=== PATIENT | female | born 1930 | race Caucasian/White ===

== ENCOUNTER 2017-04-11 16:07 | Emergency (ER) | payer OTHER, MEDICARE ==
[~2017-04-11] VITALS: Ht 170.2 cm; Wt 52.2 kg
[~2017-04-11 16:07] MED LIST: ACETAMINOPHEN COD PO; APAP325 MG RC; ASPIR 8181 MG PO; ATENOLOL50 MG PO; ATORVASTATIN CA10 MG PO; CALCITONIN200 IU/Act NAS; COSOPT OCUMETER10 ML OPH; COUMADIN 3 MG TA3 MG PO; DULCOLAX10 MG PR; ENSURE CLEAR PO; FLAGYL 25O MG250 M1 PO; FLORASTOR250 MG PO; LIDODERM 5% PAT1 PAT TD; LIDODERM 5% PAT1 PAT TOP; LISINOPRIL10 MG PO; LYRICA25 MG PO; METRONIDAZOLE500 MG PO; MILK OF MAGNESI30 ML PO; PRINIVIL10 MG PO; SERTRALINE HYDR50 MG PO; SYNTHROID0.125 MG PO; TRAMADOL50 MG PO; TYLENOL TAB 32325 MG PO; ULTRAM(MONOGRAP50 MG PO; VOLTAREN GEL1% TOP; [UNRECOGNIZED DRUG - OTHER] OPH
[2017-04-11 17:03] LABS: ABSOLUTE BASOPHIL COUNT 0 /CUMM (0.0-0.2); ABSOLUTE EOSINOPHIL COUNT 0 /CUMM (0.0-0.7); ABSOLUTE GRANULOCYTE CT 2.1 /CUMM (1.4-6.5); ABSOLUTE LYMPH COUNT 0.8 /CUMM (1.2-3.4); ABSOLUTE MONOCYTE COUNT 0.1 /CUMM (0.10-0.60); BASOPHIL % 0.7 % (0.0-2.0); EOSINOPHIL % 0.8 % (0-5); GRANULOCYTE % 69.4 % (42.2-75.2); HEMATOCRIT 34.2 % (37-47); MEAN CORPUSCULAR HGB 34.4 PG (27.0-31.0); MEAN CORPUSCULAR HGB CONC 33.4 G/DL (33.0-37.0); MEAN CORPUSCULAR VOLUME 103.1 FL (81.0-99.0); MEAN PLATELET VOLUME 11.4 FL (7.4-10.4); PLATELET COUNT 89 /CUMM (130-400); RBC DISTRIBUTION WIDTH 14.3 % (11.5-14.5); RED BLOOD CELL CT 3.31 /CUMM (4.20-5.40); WHITE BLOOD CELL COUNT 3.1 /CUMM (4.8-10.8)
[2017-04-11 17:05] LABS: PT 11.5 SEC (9.4-12.5)
--- NOTE | 2017-04-11 17:44 | ED NOSE COMPLAINT ---
History of Present Illness General Chief Complaint: Epistaxis/Nasal Foreign Body Stated Complaint: EPISTAXIS Source: patient, family Exam Limitations: no limitations Vital Signs & Intake/Output Vital Signs & Intake/Output Vital Signs Date Time Temp Pulse Resp B/P B/P Pulse O2 O2 Flow FiO2 Mean Ox Delivery Rate 04/11 1838 99 Room Air 04/11 1639 99.9 85 15 230/96 92 Room Air Room Air Allergies Coded Allergies: No Known Allergies (04/11/17) Reconcile Medications Amiodarone HCl 100 MG TABLET 1 TAB PO DAILY HEART (Reported) Aspirin (Ecotrin*) 81 MG TABLET.DR 1 TAB PO DAILY HEART/BLOOD (Reported) Atorvastatin Calcium 10 MG TABLET 1 TAB PO DAILY CHOLESTEROL (Reported) Dorzolamide HCl/Timolol Maleat (Dorzolamide-Timolol Eye Drops) 22.3 MG-6.8 MG/ML DROPS 1 GTT OPH BID BOTH EYES (Reported) Levothyroxine Sodium 75 MCG TABLET 1 TAB PO DAILY THYROID (Reported) Lisinopril 30 MG TABLET 1 TAB PO DAILY BP (Reported) Sertraline HCl 50 MG TABLET 1 TAB PO DAILY MENTAL HEALTH (Reported) Triage Note: PT TO ED FOR EPISTAXIS SINCE 0900 TODAY AND HAS NOT STOPPED SINCE THEN. SOME SMALL CLOTS. PT NOT ON BLOOD THINNERS. TISSUE IN TRIAGE NOTED WITH SOME BLOD, BUT NOT SOAKED. Triage Nurses Notes Reviewed? yes HPI: At approximately 9 AM this morning patient developed epistaxis from her left nostril. Patient states that bleeding has been intermittent throughout the day. There've not been no clots. There is no headache. There is no lightheadedness. There is no blurry vision. There is no nausea or vomiting. There is no shortness of breath. There is no coughing. 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 Patient states that she gets very anxious at doctor's office's as well as in the hospital. Her freight engineer and told her to monitor her blood pressure at home and to be treated as needed. Patient states that she has been taking her blood pressure daily since she has been home and it is been 155 over 70s. Past History Travel History Traveled to [place] past 21 day No Medical History Any Pertinent Medical History? see below for history Cardiovascular: hypertension, HYPERCHOLESTEROLEMIA ARRHYTHMIA Psychiatric: anxiety Endocrine: HYPOTHYROIDISM History of MRSA: No History of VRE: No History of CDIFF: No Surgical History Surgical History: non-contributory Psychosocial History Who do you live with Patient/Self Services at Home None What is your primary language Italian Tobacco Use: Never used ETOH Use: denies use Illicit Drug Use: denies illicit drug use Family History Family History, If Any: MOTHER FH: diabetes in FH: hypertension FATHER Parkinsonism Hx Contributory? No Review of Systems Review of Systems Constitutional: Reports: no symptoms. EENTM: Reports: see HPI, epistaxis. Respiratory: Reports: no symptoms. Cardiovascular: Reports: no symptoms. GI: Reports: no symptoms. Neurological/Psychological: Reports: no symptoms. Immunologic/Allergic: Reports: no symptoms. Physical Exam Physical Exam General Appearance: well developed/nourished, alert, awake, anxious, mild distress Head: atraumatic, normal appearance Eyes: Bilateral: PERRL, EOMI. Nose: dried blood Mouth/Throat: normal mouth inspection, pharynx normal Neck: normal inspection, supple Cardiovascular/Respiratory: normal breath sounds, normal peripheral pulses, regular rate/rhythm, no respiratory distress Neurologic/Psych: no motor/sensory deficits, awake, alert, oriented x 3, normal gait, normal mood/affect Progress Differential Diagnoses I considered the following diagnoses in my evaluation of the patient: [Epistaxis ] Plan of Care: Orders Procedure Date/time Status PROTHROMBIN TIME 04/11 1639 Complete COMPREHENSIVE METABOLIC PANEL 04/11 1639 Complete CBC WITHOUT DIFFERENTIAL 04/11 1639 Active EKG 04/11 1639 Active Laboratory Tests 04/11/17 1650: Anion Gap 12, Estimated GFR 28 L, BUN/Creatinine Ratio 18.8, Glucose 103 H, Calcium 9.4, Total Bilirubin 0.8, AST 34, ALT 46, Alkaline Phosphatase 90, Total Protein 8.7 H, Albumin 4.8, Globulin 3.9, Albumin/Globulin Ratio 1.2, PT 11.5, INR 1.10, CBC w Diff MAN DIFF ORDERED, RBC 3.31 L, MCV 103.1 H, MCH 34.4 H, RDW 14.3, MPV 11.4 H, Gran % 69.4, Lymphocytes % 26.1, Monocytes % 3.0, Eosinophils % 0.8, Basophils % 0.7, Absolute Granulocytes 2.1, Segmented Neutrophils Pending, Absolute Lymphocytes 0.8 L, Absolute Monocytes 0.1 L, Absolute Eosinophils 0, Absolute Basophils 0, PUBS MCHC 33.4 Initial ED EKG: NSR, LVH, nonspecific ST T wave chg Prior EKG: unchanged Comments: Patient's daughter, who is a nurse, is at the bedside and agrees that her blood pressure has been normal when she is not at the doctor's office or in the hospital. Bleeding had stopped however when the patient got up to ambulate it started to bleed again. Nasal Rhino Rocket removed. Bleeding is coming from the anterior septum. Thrombin inserted. Departure Departure Disposition: HOME OR SELF CARE Condition: Stable Clinical Impression Primary Impression: Epistaxis Referrals: VAUGHN CHA,DAGOBERTO León (PCP/Family) AUGUSTINE CHA,KHADIJAH Additional Instructions: RETURN FOR ANY CONCERNS Departure Forms: Customer Survey General Discharge Information Procedures Epistaxis/Nasal Foreign Body Status: no bleeding Clots Cleared Nasal Passage: by patient blowing Inspected With: otoscope Bleeding Site: ANTERIOR SEPTUM Nasal Rocket: Left: Inserted Anterior.
[2017-04-11] MEDS ORDERED: SERTRALINE HCL50 MG PO (17:51)
[2017-04-11] MEDS ORDERED: ASPIRIN EC81 M1 PO (17:52)
[2017-04-11] MEDS ORDERED: AMIODARONE HCL100 M1 PO (17:52)
[2017-04-11] MEDS ORDERED: ATORVASTATIN CA10 M1 PO (17:52)
[2017-04-11] MEDS ORDERED: LISINOPRIL30 M1 PO (17:52)
[2017-04-11] MEDS ORDERED: LEVOTHYROXINE75 MCG PO (17:52)
[2017-04-11] MEDS ORDERED: DORZOLAMIDE-TIM10 ML OPH (17:53)
[2017-04-11 19:47] VITALS: BP 220/100
[2017-04-12] MEDS ORDERED: AUGMENTIN 500-1 EACH PO (09:43)
== END 2017-04-11 19:48 ==
LOC: ERH 16:07
PROVIDERS: Emergency Medicine
DX: R04.0 Epistaxis (principal); I10 Essential (primary) hypertension
CPT/HCPCS: 93005; 93010

== ENCOUNTER 2017-04-12 08:01 | Emergency (ER) | payer OTHER, MEDICARE ==
[~2017-04-12] VITALS: Ht 167.6 cm; Wt 52.2 kg
[~2017-04-12 08:01] MED LIST changes: +AMIODARONE HCL100 M1 PO; +ASPIRIN EC81 M1 PO; +ATORVASTATIN CA10 M1 PO; +DORZOLAMIDE-TIM10 ML OPH; +LEVOTHYROXINE75 MCG PO; +LISINOPRIL30 M1 PO; +SERTRALINE HCL50 MG PO
--- NOTE | 2017-04-12 08:18 | ED NOSE COMPLAINT ---
History of Present Illness General Chief Complaint: Epistaxis/Nasal Foreign Body Stated Complaint: NOSEBLEED, SEEN YESTERDAY FOR SAME Source: patient, family, old records Exam Limitations: no limitations Vital Signs & Intake/Output Vital Signs & Intake/Output Vital Signs Date Time Temp Pulse Resp B/P B/P Pulse O2 O2 Flow FiO2 Mean Ox Delivery Rate 04/12 1005 76 156/84 04/12 0811 164/92 04/12 0807 96 Room Air 04/12 0804 96.6 70 18 95 Room Air ED Intake and Output 04/13 0000 04/12 1200 Intake Total 0 Output Total Balance 0 Intake, Oral 0 Patient 115 lb Weight Weight Reported by Patient Measurement Method Allergies Coded Allergies: No Known Allergies (04/11/17) Reconcile Medications Amiodarone HCl 100 MG TABLET 1 TAB PO DAILY HEART (Reported) Aspirin (Ecotrin*) 81 MG TABLET.DR 1 TAB PO DAILY HEART/BLOOD (Reported) Atorvastatin Calcium 10 MG TABLET 1 TAB PO DAILY CHOLESTEROL (Reported) Augmentin (Augmentin 500-125 Tablet) 500 MG-125 MG TABLET 1 TAB PO BID NASAL PACKING Dorzolamide HCl/Timolol Maleat (Dorzolamide-Timolol Eye Drops) 22.3 MG-6.8 MG/ML DROPS 1 GTT OPH BID BOTH EYES (Reported) Levothyroxine Sodium 75 MCG TABLET 1 TAB PO DAILY THYROID (Reported) Lisinopril 30 MG TABLET 1 TAB PO DAILY BP (Reported) Sertraline HCl 50 MG TABLET 1 TAB PO DAILY MENTAL HEALTH (Reported) Triage Note: 86 YO FEMALE ROSIBELA FROM HOME. PT WAS SEEN AND D/C YESTERDAY FOR NOSEBLEED (L NOSTRIL). PT STATES THE NOSE STARTED TO BLEED AGAIN DURING THE NIGHT. PT TAKES BABY ASPIRIN DAILY. PER EMS PTS DAUGHTER STATED THAT SHE HAD BLOOD IN HER STOOL, PT DENIES THE BLOOD. PT DENIES DIZZINESS/LIGHTHEADED Triage Nurses Notes Reviewed? yes Onset: Abrupt Duration: SINCE YESTERDAY Timing: recent history Injury Environment: home Severity: mild, moderate No Modifying Factors: none Associated Symptoms: WEAKNESS, ANXIOUS HPI: This is an 86-year-old female with history of nosebleed seen yesterday in the emergency department who presents with the family again for bleeding on and off all night. Blood is going from the left nostril. She states she may have picked the nose. Patient was hypertensive yesterday in ER and has no history of thrombocytopenia. They did not call ENT doctor this morning. When they wanted to bring her to the hospital they noted she was weak on her feet. She also admits to one episode of diarrhea with some blood in overnight. History of C. difficile in the past. Past History Travel History Traveled to [place] past 21 day No Medical History Any Pertinent Medical History? see below for history Neurological: NONE EENT: NONE Cardiovascular: hypertension, HYPERCHOLESTEROLEMIA ARRHYTHMIA Respiratory: NONE Gastrointestinal: NONE Hepatic: NONE Renal: NONE Musculoskeletal: NONE Psychiatric: anxiety Endocrine: HYPOTHYROIDISM History of MRSA: No History of VRE: No History of CDIFF: No Surgical History Surgical History: non-contributory Psychosocial History Who do you live with Patient/Self Services at Home None What is your primary language Chinese Tobacco Use: Never used ETOH Use: denies use Illicit Drug Use: denies illicit drug use Family History Family History, If Any: MOTHER FH: diabetes in FH: hypertension FATHER Parkinsonism Hx Contributory? No Review of Systems Review of Systems Constitutional: Reports: weakness. Denies: chills, fever. EENTM: Reports: no symptoms. Respiratory: Denies: short of breath. Cardiovascular: Denies: chest pain. GI: Denies: abdominal pain. Genitourinary: Reports: no symptoms. Musculoskeletal: Reports: no symptoms. Skin: Reports: no symptoms. Neurological/Psychological: Reports: anxiety. Hematologic/Endocrine: Reports: bleeding. Immunologic/Allergic: Denies: splenectomy. All Other Systems: Reviewed and Negative Physical Exam Physical Exam General Appearance: alert, awake, anxious, mild distress, thin Head: atraumatic Eyes: Bilateral: PERRL, EOMI. Nose: MINIMAL BLEEDING FROM LEFT NARE Mouth/Throat: normal mouth inspection, pharynx normal Neck: normal inspection, supple Cardiovascular/Respiratory: normal breath sounds, regular rate/rhythm Back: normal inspection Neurologic/Psych: no motor/sensory deficits, awake, alert, oriented x 3, ANXIOUS Skin: intact, normal color, warm/dry Progress Differential Diagnoses I considered the following diagnoses in my evaluation of the patient: [ANTERIOR EPISTAXIS, ANEMIA, DEHYDRATION, HYPERTENSION, THROMBOCYTOPENIA] Plan of Care: Orders Procedure Date/time Status Add-on Test (ER Only) 04/12 0914 Active PARTIAL THROMBOPLASTIN TIME 04/12 08 Complete PROTHROMBIN TIME 04/12 0843 Complete COMPREHENSIVE METABOLIC PANEL 04/12 0843 Complete CBC WITHOUT DIFFERENTIAL 04/12 08 Complete Laboratory Tests 04/12/17 0843: Anion Gap 13, Estimated GFR 30 L, BUN/Creatinine Ratio 27.5 H, Glucose 111 H, Calcium 9.1, Total Bilirubin 0.7, AST 28, ALT 31, Alkaline Phosphatase 78, Total Protein 7.9, Albumin 4.3, Globulin 3.6, Albumin/Globulin Ratio 1.2, PT 11.4, INR 1.09, APTT 34, CBC w Diff NO MAN DIFF REQ, RBC 3.05 L, MCV 101.8 H, MCH 34.4 H, RDW 14.5, MPV 10.6 H, Gran % 84.0 H, Lymphocytes % 13.7 L, Monocytes % 1.8 , Eosinophils % 0.1, Basophils % 0.4, Absolute Granulocytes 2.4, Absolute Lymphocytes 0.4 L, Absolute Monocytes 0 L, Absolute Eosinophils 0, Absolute Basophils 0, PUBS MCHC 33.8 Microbiology 04/12 0914 STOOL: Clostridium difficile Toxin A & B - CAN Cancelled: SPECIMEN NEVER RECEIVED. PATIENT DEPARTED [facility] 04/12/2017 8:58:01 AM Afrin, thrombin and left anterior anterior nasal packing placed NO BLEEDING AFTER NASAL TAMPON PLACED. MINIMAL CHANGE IN H/H, NO INDICATINO FOR TRANSFUSION. FAMILY WANTS C.DIFF CHECKED BUT PATIENT UNABLE TO PROVIDE SAMPLE. THEY WILL FOLLOW UP WITH ENT FOR FURTHER EVALUATION. (LEONIDAS CHA,REMA) Initial ED EKG: none Departure Departure Time of Disposition: 0940 Disposition: HOME OR SELF CARE Condition: Stable Clinical Impression Primary Impression: Epistaxis Secondary Impressions: Dehydration, Thrombocytopenia Referrals: VAUGHN CHA,DAGOBERTO León (PCP/Family) AUGUSTINE CHA,KHADIJAH Additional Instructions: Please follow up with the ENT regarding the episodes of nose bleeding. Increase YOUR fluid intake. Return as needed. Take the antibiotic as prescribed. Departure Forms: Customer Survey General Discharge Information Prescriptions: Current Visit Scripts Augmentin (Augmentin 500-125 Tablet) 1 TAB PO BID #10 TAB
[2017-04-12 08:53] LABS: ABSOLUTE BASOPHIL COUNT 0 /CUMM (0.0-0.2); ABSOLUTE EOSINOPHIL COUNT 0 /CUMM (0.0-0.7); ABSOLUTE GRANULOCYTE CT 2.4 /CUMM (1.4-6.5); ABSOLUTE LYMPH COUNT 0.4 /CUMM (1.2-3.4); ABSOLUTE MONOCYTE COUNT 0 /CUMM (0.10-0.60); BASOPHIL % 0.4 % (0.0-2.0); EOSINOPHIL % 0.1 % (0-5); HEMATOCRIT 31.1 % (37-47); MEAN CORPUSCULAR HGB 34.4 PG (27.0-31.0); MEAN CORPUSCULAR HGB CONC 33.8 G/DL (33.0-37.0); MEAN CORPUSCULAR VOLUME 101.8 FL (81.0-99.0); MEAN PLATELET VOLUME 10.6 FL (7.4-10.4); PLATELET COUNT 82 /CUMM (130-400); RBC DISTRIBUTION WIDTH 14.5 % (11.5-14.5); RED BLOOD CELL CT 3.05 /CUMM (4.20-5.40); WHITE BLOOD CELL COUNT 2.8 /CUMM (4.8-10.8)
[2017-04-12] MEDS ORDERED: AUGMENTIN 500-1 EACH PO (09:43)
[2017-04-12 09:45] LABS: PT 11.4 SEC (9.4-12.5); PTT 34 SEC (25-37)
[2017-04-12 10:05] VITALS: BP 156/84
== END 2017-04-12 10:05 ==
LOC: ERH 08:01
PROVIDERS: Emergency Medicine
DX: R04.0 Epistaxis (principal); E86.0 Dehydration; D69.6 Thrombocytopenia, unspecified

== ENCOUNTER 2017-04-13 17:06 | Inpatient (IN) | payer OTHER, MEDICARE ==
[~2017-04-13] VITALS: Ht 170.2 cm; Wt 52.2 kg
[~2017-04-13 17:06] MED LIST changes: +AUGMENTIN 500-1 EACH PO
--- NOTE | 2017-04-13 17:12 | NUR ---
86 YO FEMALE TO TRIAGE WITH FAMILY. FAMILY STATES THAT PT HAS BEEN WEAK AND UNABLE TO GE TOUT OF BED TODAY. PT WAS SEEN HERE YESTERDAY FOR NOSEBLEED AND HAD PACKING PLACED. PT HAD APPT TODAY WITH ENT AT 3:45 BUT PER FAMILY SHE WAS UNABLE TO GO. PT NOTED WITH DRY BLOOD AROUND NASAL PACKING. BP 133/84 IN TRIAGE, PER FAMILY THAT IS "EXTREMILY LOW" FOR THE PT AND "MAYBE THATS WHY SHE FEELS SO TIRED" PT DENIES PAIN.
--- NOTE | 2017-04-13 17:13 | NUR ---
PER FAMILY PT DID TAKE 1 DOSE OF ANTIBOTIC TODAY
--- NOTE | 2017-04-13 18:11 | NUR ---
PATIENT ARRIVES TO TX ROOM AND IS PALE, WEAK, CLAMMY. SEEN AT THIS FACILITY YESTERDAY W/ BLOODY NOSE. AT PRESENT THERE IS NO NOSE BLEED NOTED.
--- NOTE | 2017-04-13 18:17 | ED AMS/SEIZURE/WEAK/DIZZY ---
History of Present Illness General Chief Complaint: Epistaxis/Nasal Foreign Body Stated Complaint: EPISTAXIS,+N,+D Source: patient, family, old records Exam Limitations: no limitations Vital Signs & Intake/Output Vital Signs & Intake/Output Vital Signs Date Time Temp Pulse Resp B/P B/P Pulse O2 O2 Flow FiO2 Mean Ox Delivery Rate 04/13 1946 97.6 62 16 220/80 95 Room Air 04/13 1839 97.2 68 18 188/77 96 Room Air 04/13 1708 98.7 72 18 133/82 97 Room Air Allergies Coded Allergies: No Known Allergies (04/11/17) Reconcile Medications Amiodarone HCl 100 MG TABLET 1 TAB PO DAILY HEART (Reported) Aspirin (Ecotrin*) 81 MG TABLET.DR 1 TAB PO DAILY HEART/BLOOD (Reported) Atorvastatin Calcium 10 MG TABLET 1 TAB PO DAILY CHOLESTEROL (Reported) Augmentin (Augmentin 500-125 Tablet) 500 MG-125 MG TABLET 1 TAB PO BID NASAL PACKING Dorzolamide HCl/Timolol Maleat (Dorzolamide-Timolol Eye Drops) 22.3 MG-6.8 MG/ML DROPS 1 GTT OPH BID BOTH EYES (Reported) Levothyroxine Sodium 75 MCG TABLET 1 TAB PO DAILY THYROID (Reported) Lisinopril 30 MG TABLET 1 TAB PO DAILY BP (Reported) Sertraline HCl 50 MG TABLET 1 TAB PO DAILY MENTAL HEALTH (Reported) Triage Note: 86 YO FEMALE TO TRIAGE WITH FAMILY. FAMILY STATES THAT PT HAS BEEN WEAK AND UNABLE TO GE TOUT OF BED TODAY. PT WAS SEEN HERE YESTERDAY FOR NOSEBLEED AND HAD PACKING PLACED. PT HAD APPT TODAY WITH ENT AT 3:45 BUT PER FAMILY SHE WAS UNABLE TO GO. PT NOTED WITH DRY BLOOD AROUND NASAL PACKING. BP 133/84 IN TRIAGE, PER FAMILY THAT IS "EXTREMILY LOW" FOR THE PT AND "MAYBE THATS WHY SHE FEELS SO TIRED" PT DENIES PAIN. Triage Nurses Notes Reviewed? yes Onset: Abrupt Duration: day(s): (3) Timing: recent history Injury Environment: home Severity: mild, moderate No Modifying Factors: none Associated Symptoms: weakness, epistaxis HPI: 86 year old female here for 3rd visit in 3 days. Family reports weakness, unable to get to see the ENT today. She had a nasal tampon placed by myself in the ER yesterday. She took one dose of Augmentin yesterday and had a few episodes of diarrhea. She was due to see ENT today the family states that she was very diaphoretic when attempting to get off the commode. Patient appears weak and pale. No active bleeding on exam today. There is some dried blood at the base of the tampon. She did not take any Augmentin today. History of C. difficile in the past before. We attempted to collect stool sample yesterday while in the ER she was having diarrhea prior to starting the antibiotic. Family states that she is too weak to be at home they're afraid that she is going to fall. (REMA LAUREN MD) Past History Travel History Traveled to [place] past 21 day No Medical History Any Pertinent Medical History? see below for history Neurological: NONE EENT: NONE Cardiovascular: hypertension, HYPERCHOLESTEROLEMIA ARRHYTHMIA Respiratory: NONE Gastrointestinal: NONE Hepatic: NONE Renal: NONE Musculoskeletal: NONE Psychiatric: anxiety Endocrine: HYPOTHYROIDISM History of MRSA: No History of VRE: No History of CDIFF: No Surgical History Surgical History: non-contributory Psychosocial History Who do you live with Patient/Self Services at Home None What is your primary language Nicaraguan Tobacco Use: Never used Family History Family History, If Any: MOTHER FH: diabetes in FH: hypertension FATHER Parkinsonism Hx Contributory? No (REMA LAUREN MD) Review of Systems Review of Systems Constitutional: Reports: malaise, weakness. Denies: chills, fever. EENTM: Reports: no symptoms. Respiratory: Denies: cough, short of breath. Cardiovascular: Denies: chest pain. GI: Reports: no symptoms. Genitourinary: Reports: no symptoms. Musculoskeletal: Reports: no symptoms. Skin: Reports: no symptoms. Neurological/Psychological: Reports: no symptoms. Hematologic/Endocrine: Reports: bleeding. Immunologic/Allergic: Reports: no symptoms. All Other Systems: Reviewed and Negative (REMA LAUREN MD) Physical Exam Physical Exam General Appearance: alert, awake, mild distress, moderate distress, thin Head: atraumatic, normal appearance Eyes: Bilateral: PERRL, EOMI. Ears, Nose, Throat: normal pharynx, normal ENT inspection, hearing grossly normal Neck: normal inspection, supple, full range of motion Respiratory: normal breath sounds, chest non-tender, no respiratory distress Cardiovascular: regular rate/rhythm Peripheral Pulses: 2+ radial (R), 2+ radial (L) Gastrointestinal: soft, non-tender Extremities: normal range of motion Neurologic/Psych: awake, alert, oriented x 3 Skin: intact, normal color, warm/dry, pallor Core Measures ACS in differential dx? No CVA/TIA Diagnosis: No Severe Sepsis Present: No Septic Shock Present: No (REMA LAUREN MD) Progress Differential Diagnosis: anemia, dehydration, DIARRHEA, C.DIFF Plan of Care: Orders Procedure Date/time Status TROPONIN LEVEL 04/13 1815 Complete PARTIAL THROMBOPLASTIN TIME 04/13 1815 Complete PROTHROMBIN TIME 04/13 1815 Complete COMPREHENSIVE METABOLIC PANEL 04/13 1815 Complete CBC WITHOUT DIFFERENTIAL 04/13 1815 Complete EKG 04/13 1815 Active Current Medications Sig/Maureen Start time Last Medication Dose Stop Time Status Admin Sodium Chloride 1,000 ML ONCE ONE 04/13 1830 AC 04/13 (Normal Saline 0.9%) 04/14 0749 1832 Laboratory Tests 04/13/17 1825: Anion Gap 11, Estimated GFR 28 L, BUN/Creatinine Ratio 26.5 H, Glucose 118 H, Calcium 9.1, Total Bilirubin 0.5, AST 28, ALT 36, Alkaline Phosphatase 59, Troponin I 0.05, Total Protein 7.6, Albumin 4.3, Globulin 3.3, Albumin/Globulin Ratio 1.3, PT 11.6, INR 1.11, APTT 28, CBC w Diff NO MAN DIFF REQ, RBC 2.74 L, MCV 102.8 H, MCH 34.6 H, RDW 14.3, MPV 11.5 H, Gran % 86.0 H, Lymphocytes % 11.3 L, Monocytes % 2.4, Eosinophils % 0, Basophils % 0.3, Absolute Granulocytes 4.3, Absolute Lymphocytes 0.6 L, Absolute Monocytes 0.1 L, Absolute Eosinophils 0, Absolute Basophils 0, PUBS MCHC 33.6 Initial ED EKG: NSR, abnormal Q waves (INFERIOR), FIRST DEGREE AV BLOCK, LAD Prior EKG: unchanged Hand-Off Endorsed To: ADIN OCHOA MD Endorsed Time: 1927 Pending: other (AMBULATION TRIAL/ADMISSION) (REMA LAUREN MD) Departure Departure Disposition: STILL A PATIENT Condition: Stable Referrals: VAUGHN CHA,DAGOBERTO León (PCP/Family) Departure Forms: Customer Survey General Discharge Information (REECE LAUREN MDRANI) Departure Clinical Impression Primary Impression: Hypertensive urgency Secondary Impressions: CAMELIA (acute kidney injury), Anemia, Epistaxis, Gait instability, Risk for falls, Weakness Admission Note Documentation of Exam: Documentation of any treatments & extenuating circumstances including Concerns Regarding Discharge (functional status, medication knowledge or non-compliance, living conditions, etc.) that warrant an admission rather than observation: Patient is an 86-year-old with multiple active medical issues including hypertensive urgency (placing her at risk of a CVA, encephalopathy, chest pain/ acute coronary syndrome, intracranial hemorrhage and epistaxis with worsening blood loss), epistaxis episodes worsened by fluctuating and often severe high blood pressure, dropping hematocrit, indication of acute kidney injury ( worsening creatinine) and gait instability (placing the patient at high risk of falling with subsequent injury and an inability to perform activities of daily living). In addition the patient be a poor candidate for outpatient management as a be quite difficult and risky for her to comply with outpatient treatment. I feel she requires hospitalization and treatment of her hypertension, monitoring of the anemia and renal functions and consideration of your nose and throat and cardiology consultations. Patient's medications will need to be adjusted to treat the elevated blood pressure. Given the patient's advanced age and multiple medical comorbidities and active issues, I feel the patient will require a multiple day hospitalization and that her treatment and recovery will be a prolonged and complicated. (GABRIELA CHA,ADIN Maguire)
--- NOTE | 2017-04-13 18:33 | NUR ---
86 YEAR OLD FEMALE , ALERT AND ORIENTED, SEEN IN ER WEDNESDAY AROUND 0900 FOR NOSE BLEED, PT HAD NASAL PACKING PLACED , BUT STATES THAT THEY HAD TO REMOVE IT DUE TO IT KEPT BLEEDING AND THEY USED THROMBIN. PT RETURNED YESTERDAY AM DUE TO L SIDE NOSTRIL STARTED TO BLEED AGAIN, USED THROMBIN AND PLACED PACKING. PT RETURNS TODAY DUE TO FEELING WEAK AND EPISODES OF SOB , O2 SAT 96 % ON RA. NSR ON MONITOR , PT COLOR PALE, FAMILY STATES THAT PT IS ALWAYS FAIR SKIN BUT THEY ALSO NOTED SHE IS MORE PALE TODAY. PT COMPLAINS OF DIZZINESS WHEN SHE GETS UP. NO APPETITE. NO BLEEDING NOTED TO L NARES AT THIS TIME AND PACKING REMAINS IN PLACE. DENIES CP/ABD PAIN/URINARY SYMPTOMS.
[2017-04-13 18:36] LABS: ABSOLUTE BASOPHIL COUNT 0 /CUMM (0.0-0.2); ABSOLUTE EOSINOPHIL COUNT 0 /CUMM (0.0-0.7); ABSOLUTE GRANULOCYTE CT 4.3 /CUMM (1.4-6.5); ABSOLUTE LYMPH COUNT 0.6 /CUMM (1.2-3.4); ABSOLUTE MONOCYTE COUNT 0.1 /CUMM (0.10-0.60); BASOPHIL % 0.3 % (0.0-2.0); EOSINOPHIL % 0 % (0-5); HEMATOCRIT 28.2 % (37-47); MEAN CORPUSCULAR HGB 34.6 PG (27.0-31.0); MEAN CORPUSCULAR HGB CONC 33.6 G/DL (33.0-37.0); MEAN CORPUSCULAR VOLUME 102.8 FL (81.0-99.0); MEAN PLATELET VOLUME 11.5 FL (7.4-10.4); RBC DISTRIBUTION WIDTH 14.3 % (11.5-14.5); RED BLOOD CELL CT 2.74 /CUMM (4.20-5.40)
[2017-04-13 18:45] LABS: PT 11.6 SEC (9.4-12.5); PTT 28 SEC (25-37)
[2017-04-13 18:58] LABS: PLATELET COUNT 92 /CUMM (130-400)
--- NOTE | 2017-04-13 19:39 | NUR ---
PT TRIED TO AMBULATE WITH THIS NURSE, PT NOTED TO BE SHAKEY AND STARTED TO FALL BACKWARDS AFTER A COUPLE OF STEPS. PT COMPLAINED OF FEELING WEAK. ASSISTED BACK INTO BED AT THIS TIME. NSR ON MONITOR AND FLUIDS CONTINUE TO INFUSE AT 75 ML/HR
--- NOTE | 2017-04-13 19:51 | NUR ---
MANUAL BP 220/80, DR OCHOA MADE AWARE , PER FAMILY PT ONLY TAKES LISINOPRIL IN THE AM AND DOES NOT TAKE HTN MEDS IN PM. DR OCHOA AWARE
--- NOTE | 2017-04-13 20:30 | NUR ---
PT MEDICATED WITH NORVASC 10 MG PO PER ORDER FOR BP 220/80. PT ASSISTED UP TO COMMODE BY MST.
--- NOTE | 2017-04-13 20:37 | NUR ---
PT VOIDED 200 CC YELLOW URINE ON COMMODE
--- NOTE | 2017-04-13 20:48 | NUR ---
URINE TRIO SENT TO LAB.
--- NOTE | 2017-04-13 20:48 | NUR ---
PT OFFERED FOOD TRAY AND REFUSED , PT PROVIDED WITH WATER PER HER REQUEST
--- NOTE | 2017-04-13 21:09 | NUR ---
FAMILY REQUESTING THAT MD COME IN AND GO OVER PATIENTS LABS WITH THEM . MD AWARE
--- NOTE | 2017-04-13 22:13 | NUR ---
MANUAL BP 211/92 , MD AWARE , FAMILY REMAINS AT BEDSIDE
--- NOTE | 2017-04-13 22:39 | NUR ---
BP 202/79 AT 2234, PT MEDICATED WITH 5MG IV LABETALOL REPEAT BP AT 2236 192/76, PT MEDICATED WITH ADDITIONAL 5MG AT 2237 AND REPEAT BP AT 2238 161/69, PT OFFERS NO COMPLAINTS OF PAIN AND STATES THAT SHE IS JUST WEAK. FAMILY REMAINS AT BEDSIDE , HOUSE STAFF AT BEDSIDE AT THIS TIME, FLUIDS CONTINUE TO INFUSE AT 75 ML/HR
--- NOTE | 2017-04-13 23:10 | NUR ---
PT RESTING ON BED, ALPS IN PLACE , LIGHTS DIMMED FOR COMFORT.
--- NOTE | 2017-04-14 00:33 | NUR ---
PT TO ROOM 22 IN HOSPITAL BED, SIDE RAILS UPRIGHT, CALL OCHOA WITHIN REACH, NS[facility] ON [employer] MON[employer] ASLEEP AT THIS TIME W/RR NOTED. WILL CTM.
--- NOTE | 2017-04-14 00:46 | History & Physical ---
BLACK ROACH 04/14/17 0041: General Information and HPI MD Statement: I have seen and personally examined BEKAH GREENBERG and documented this H&P. The patient is a 86 year old F who presented with a patient stated chief complaint of [EPISTAXIS, HYPERTENSION]. Exam Limitations: no limitations History of Present Illness: This is a 86-year-old female nonsmoker, no alcohol, no illcit drug use with past medical history of hypertension, dyslipidemia,hypothyroidism, basal cell carcinoma s/p resection,previous h/o hip fracture in 2012 and 2013,previous cataract and thyroid surgery,glaucoma, depression last seen in February 2014 for left intertrochanteric hip fracture seen at the emergency department on 2016, 04/12/2017 and 04/13/2017 1 day prior to today's presentation. Apprently she came in on 04/11/2017 with chief complain of epistaxis, she was noted to have a blood pressure of 230/96, temperature of 99.9 her blood pressure was controlled, and nasal Rhino Rocket was removed and thrombin was inserted, seen again on April 12 for epistaxis again, treated with afrin, thrombin and left anterior nasal packing with labwork showing white count of 2.8, platelet of 92.The family was concerned that she was to weak too send back home, she comes back again today 04/14/17 with the same complaint of epistaxis and high blood pressure -220/80, continues to feel weak and she was unable to see the ENT today.She had had a nasal tampon placed yesterday one day prior to admission and was given 1 dose of Augmentin. She reported to have few episodes of diarrhea however currently she does not have any diarrhea. She was very diaphoretic and very weak and pale and therefore was brought into the ER again. She was noted to have some dried blood at the base of the tampon. He was also noted to have 5-6 episodes of diarrhea on previous ER visits, she took only 1 dose of Augmentin as per the daughter as the daughter was scared that she might have worsening diarrhea. She denied any episodes of diarrhea after coming to the ER. It is worthwhile to note that she had been treated for positive Clostridium difficile diarrhea on 2 patient previously and treated with Flagyl. She denied any chest pain, palpitations, nausea, vomiting, abdominal pain, burning in urine, fever,headache, new vision changes (other than basline from glaucoma). Allergies/Medications Allergies: Coded Allergies: No Known Allergies (04/11/17) Home Med list Amiodarone HCl 100 MG TABLET 1 TAB PO DAILY HEART (Reported) Amoxicillin/Potassium Clav (Augmentin 875-125 Tablet) 875 MG-125 MG TABLET 1 TAB PO BID NASAL PACKING Aspirin (Ecotrin*) 81 MG TABLET.DR 1 TAB PO DAILY HEART/BLOOD (Reported) Atorvastatin Calcium 10 MG TABLET 1 TAB PO DAILY CHOLESTEROL (Reported) Dorzolamide HCl/Timolol Maleat (Dorzolamide-Timolol Eye Drops) 22.3 MG-6.8 MG/ML DROPS 1 GTT OPH BID BOTH EYES (Reported) Hydralazine HCl 25 MG TABLET 1 TAB PO TID HIGH BP Levothyroxine Sodium 75 MCG TABLET 1 TAB PO DAILY THYROID (Reported) Lisinopril 20 MG TABLET 2 TAB PO DAILY high bp Sertraline HCl 50 MG TABLET 1 TAB PO DAILY MENTAL HEALTH (Reported) Tranexamic Acid (Lysteda) 650 MG TABLET 1 TAB PO BID PRN NASAL BLEEDING during menses Compliance With Home Meds: FAIR Past History Travel History Traveled to [place] past 21 day No Medical History Neurological: NONE EENT: NONE Cardiovascular: hypertension, HYPERCHOLESTEROLEMIA ARRHYTHMIA Respiratory: NONE Gastrointestinal: NONE Hepatic: NONE Renal: NONE Musculoskeletal: NONE Psychiatric: anxiety Endocrine: HYPOTHYROIDISM History of MRSA: No History of VRE: No History of CDIFF: No Surgical History Surgical History: non-contributory ECHO Results (as available) Date of last Echo 08/01/14 EF% 65 Past Family/Social History Family History Relations & Conditions if any MOTHER FH: diabetes in FH: hypertension FATHER Parkinsonism Psychosocial History Where do you live? Home Who Do You Live With? child, lives with her daughter Services at Home: None Primary Language: Lithuanian Smoking Status: Never Smoked ETOH Use: denies use Illicit Drug Use: denies illicit drug use Functional Ability ADLs Independent: dressing, eating, toileting, bathing. Ambulation: walker IADLs Independent: finances. Needs Assist: shopping, housework, food prep. Review of Systems Review of Systems Constitutional: Reports: diaphoresis, malaise, weakness. Denies: chills, fever, unexplained weight loss. EENTM: Denies: blurred vision, double vision, visual changes, eye pain, eye drainage. Cardiovascular: Denies: chest pain, edema, orthopena, palpitations, peripheral edema, syncope. Respiratory: Denies: cough, hemoptysis, orthopnea, short of breath, sputum production. GI: Reports: diarrhea, nausea. Denies: abdominal pain, bloating, constipation, distention, bowel incontinence, melena. Genitourinary: Denies: discharge, dysuria, frequency, hematuria. Musculoskeletal: Denies: back pain, gout, joint pain, joint swelling. Skin: Denies: cysts, change in skin color, change in hair/nails, dryness. Neurological/Psychological: Reports: anxiety, depressed. Denies: confusion. Hematologic/Endocrine: Reports: bleeding. Immunologic/Allergic: Reports: no symptoms. All Other Systems: Reviewed and Negative Exam & Diagnostic Data Last 24 Hrs of Vital Signs/I&O Vital Signs Date Time Temp Pulse Resp B/P B/P Pulse O2 O2 Flow FiO2 Mean Ox Delivery Rate 04/13 2309 66 181/74 04/13 2241 97.3 62 18 161/69 96 Room Air 04/13 2239 202/79 04/13 2210 98.1 67 16 211/92 97 Room Air 04/13 2030 220/80 04/13 1946 97.6 62 16 220/80 95 Room Air 04/13 1839 97.2 68 18 188/77 96 Room Air 04/13 1708 98.7 72 18 133/82 97 Room Air Intake & Output 04/14 0800 04/14 0000 04/13 1600 Intake Total 60 Output Total 200 Balance -140 Intake, Oral 60 Output, Urine 200 Patient 52.163 kg Weight Weight Reported by Patient Measurement Method Physical Exam General Appearance Alert, Oriented X3, Cooperative, Mild Distress Skin No Breakdown, dry blood noted on the left anterior nose with packign presnet inside., pale Skin Temp/Moisture Exam: Warm/Dry Sepsis Skin Exam (color): Normal for Ethnicity HEENT Atraumatic, PERRLA, EOMI Neck Supple, No JVD, No thryomegaly Lymphatic no lad Cardiovascular Normal S1, Normal S2, No Murmurs Lungs Clear to Auscultation, Normal Air Movement Abdomen Normal Bowel Sounds, Soft, No Tenderness Neurological Normal Speech, Strength at 5/5 X4 Ext, Normal Tone, Sensation Intact, Cranial Nerves 3-12 NL Extremities No Clubbing, No Cyanosis, No Edema, Normal Pulses Vascular Normal Pulses Diagnostic Data EKG Results NSR, abnormal Q waves (INFERIOR), FIRST DEGREE AV BLOCK,LEFT AXIS DEVIATION CXR Results none Assessment/Plan Assessment: In summary,this is a 86-year-old female nonsmoker, no alcohol, no illcit drug use with past medical history of hypertension, dyslipidemia,hypothyroidism, basal cell carcinoma s/p resection,previous h/o hip fracture in 2012 and 2013, previous cataract and thyroid surgery,glaucoma, depression last seen in February 2014 for left intertrochanteric hip fracture seen at the emergency department on 04/11/2017, 04/12/2017 and 04/13/2017 1 day prior to today's presentation, him sent back again with chief complaint of epistaxis, noted to have high blood pressure, weak and lethargic with labs significant for acute kidney injury. Vitals on presentation temperature of 98.7, pulse of 72, respiration of 18, blood pressure was 220/80, she was 96% saturating on room air. She was noted to have a white count of 5.0, H/H of 9.5/28.2, platelet of 92 ( recent platelet since 03/19/2017 noted to be 81, 89, 82, previous last normal value noted to be 152 in 06/10/2015). INR noted to be 1.11, ua was negative. Electrolytes sodium of 132, potassium of 4, BUN/creatinine 45/1.7 (baseline between 1.3-1.7 in last 1 year), glucose of 118. caclium noted to be 9.1, liver function tests within normal limit, initial set of troponin negative at 0.05. Problem list along with assessment and plan. #1 epistaxis with hypertensvie urgeny and thrombocytopenia * The possible reasons of continued epistaxis, hypertension versus low platelet. * Continue to control blood pressure, patient came in with the systolic pressure greater than 200 systolic, was found to be in hypertensive urgency, we do not want to drop the blood pressure very aggressively however, we need to keep it around 160 systolic, patient received 10 mg of amlodipine at the emergency department, one time of IV labetalol. * Continue the patient on her home medication of lisinopril 30 mg once daily. * In addition to home medication, will also start him on 10 mg amlodipine. * she will need adjustment possible addition versus increased in BP medication dosage, as it has been consistently high. * ENT consult for contined epistaxis. * hematology consult in a.m. for low platelets, Patient does not look to be in sepsis, low platelet has been more recent in the last 1 month, no values and platelets in last 2 years. * As the patient disorder has been chronic since last 1 month, patient has only epistaxis, not in sepsis, DIC less likely, other possibility could be underlying hematological disorder. * ct monitor platelets closely, continue monitor vitals, continue monitoring intake and output. #2 thrombocytopenia * monitor platelets * hematolgoy consult in am * hold aspirin * dvt px with alps. #3 hypertensive urgency. * Her blood pressure currently is 180/70, we will continue to target a systolic blood pressure around 160. * ct current home dose just lisinopril 30 mg in addition we'll also add amlodipine 10 mg daily. #4 History of atrial fibrillation. * The patient in normal sinus rhythm, EKG showed normal sinus rhythm with rate of 64, NM of 260, first-degree A-V block, dysuria 529, left axis deviation. * ct amiodarone at home dosage. #5 Diarrhea * Patient reports having diarrhea on and off since last 3-4 days, currently not having any episodes of diarrhea. After coming to the ER. * If the diarrhea episodes continue, consider sending stool for C. difficile and culture and sensitivity. * Patient previously has been diagnosed with C. difficile on 2 occasions and treated with Flagyl. * Continue to monitor electrolytes and replete as necessary. #6 history of anxiety/depression. * Continue sertraline at home dosage. #7 history of hypothyroidism. * Recheck thyroid function tests. * Continue levothyroxine 75 g daily. #8 chronic kidney disease. * Patient's creatinine is at baseline, * Continue to monitor. #9 Gait instabilty * pt evalve and treat * social work * case mx for placement * fall precautions. #10 Anxiety,depression, white coat hypertension * ct sertralin * valium prn if very anxious, helps at night Pt is DNR/DNI. heart healthy diet mild, mod severe PP DVT px : alps 2/2 epistaxis As Ranked By This Provider Problem List: 1. Diarrhea 2. Hypertensive urgency 3. Gait instability Core Measures/Miscellaneous Acute Coronary Syndrome ACS Diagnosis: No Cerebrovascular Accident CVA/TIA Diagnosis: No Congestive Heart Failure CHF Diagnosis: No Venous Thromboembolism VTE Risk Factors: Age > 40 [facility] prophylaxis d/t: No contraindications No VTE Pharm Prophylaxis d/t: No contraindications VTE Diagnosis: No VTE Type: NONE VTE Confirmed by (Test): NONE Severe Sepsis Severe Sepsis Present: No Septic Shock Septic Shock Present: No Miscellaneous Documentation Attending Case Discussed With: [facility] Primary Care Physician: DAGOBERTO LAY MD Patient sees these Specialists dr lay PCP Level of Patient Care: Telemetry CLARENCE LAMAS MD 04/14/17 0549: Attending MD Review Statement Attending Statement Attending MD Statement: examined this patient, discuss w/resident/PA/NETWORK DESIGNER, agreed w/resident/PA/NETWORK DESIGNER, discussed with family Attending Assessment/Plan: 86 yo F with h/o HTN, hypothyroidism, basal cell carcinoma, CKD stage 3B, compression fracture, Cdiff colitis (2013), last admitted to [facility] January 2016 for Afib and had another episode of Cdiff treated with Flagyl, returns today for evaluation of epistaxis from left nostril. She has been seen in the ER for the past 2 days for the same and noted to be in hypertensive urgency. Patient thinks she blew her nose a little too hard which probably precipitated the epistaxis. Daughter states, patient has 'white coat hypertension' but at home her BP is around 150/70's. On Wednesday (April 11), her epistaxis was treated with rhino rocket and thrombin. She returned on WednesdayApril 12 for same, nasal tampon placed and she was asked to follow up with ENT. However, today April 13, patient was unable to get to ENT as she felt extremely weak and had difficulty ambulating. Patient has also been having recurrent episodes of diarrhea since Wednesday. Although she was prescribed Augmentin on Wednesday by ER physician, she took only 1 dose given the fear of Cdiff. Her diarrhea persists, but since she arrived to ER she has not had any further episodes. Patient has a poor appetite, feels lightheaded at times, but denies chest pain, palpitations or dyspnea. Of note, she has a h/o [id number] acid deficiency anemia and follows up with shoe cobbler, but no previous dianosis of thrombocytopenia. Vitals stable except for BP of 211/92. Labs: H/H 9.5/28.2, macrocytosis, Plt 92 (152 (2014) --> 81 (February 2017), INR 1.11, BUN 45, creat 1.7 (baseline), trop neg, UA clear. EKG: SR, TWI in lead III, aVF. Echo (2013): EF > 65%, stage 1 diastolic dysfunction. 1. Epistaxis in the setting of hypertensive urgency and thrombocytopenia of unclear etiology, with acute blood loss anemia. Tele admit, monitor for bleeding from left nare, CBC daily, keep Hb > 8.0, type and crossmatch, ENT consult in AM. Manage hypertension with lisinopril (30 mg home dose), add amlodipine, IV labetalol PRN. Manage anxiety with PRN valium. Rule out ACS, Echo and obtain Cardio consult in AM. Check orthostats. 2. Thrombocytopenia of unclear etiology. Check peripheral smear. Hold aspirin. ? underlying MDS, obtain hematology consult. 3. Afib. Resume amiodarone. Hold aspirin for now, resume once epistaxis resolves. 4. H/o Cdiff now with diarrhea. If patient has persistent diarrhea, will check stool Cdiff and treat with Flagyl. 5. Weakness, gait instability. PT eval, possible STR. DVT ppx Alps. DNR/I.
--- NOTE | 2017-04-14 01:32 | NUR ---
HOUSE STAFF AT BEDSIDE
--- NOTE | 2017-04-14 01:37 | NUR ---
HOUSE STAFF AT BEDSIDE FOR PT EVAL
--- NOTE | 2017-04-14 02:42 | NUR ---
PT MEDICATED WITH 2MG VALIUM AND NS INFUSING AT 50MLS/HR PER EMAR
--- NOTE | 2017-04-14 05:04 | NUR ---
PT REMAINS ASLEEP AT THIS TIME W/RR NOTED. NSR ON GRAVITY PROSPECTING OPERATOR, SIDE RAILS UPRIGHT. CALL OCHOA WITHIN REACH.
--- NOTE | 2017-04-14 05:48 | NUR ---
BLOOD OBTAINED AND SENT TO LAB BY PRATIMA VANESSA -SST,LAV,BLUE,PINK EKG DONE BY PRATIMA VANESSA
--- NOTE | 2017-04-14 06:42 | Admission Certification ---
Admission Certification Certification Statement - As attending physician, I certify that at the time of - admission, based on clinical presentation, severity of - symptoms, need for further diagnostic testing and - therapeutic interventions, and risk of adverse outcomes - without in-hospital treatment, in my clinical assessment, - this patient requires an acute hospital stay for a minimum - of two nights or longer. I have also considered psychsocial - factors such as support system, advanced age, financial - issues, cognitive issues, and failed out-patient treatments, - past re-admission history, safety of patient, and lack of - compliance as applicable. Specific rationale supporting this admission is: Epistaxis, acute blood loss anemia, hypertensive urgency and thrombocytopenia of unclear etiology.
--- NOTE | 2017-04-14 12:51 | NUR ---
BED ASSIGNMENT 176
--- NOTE | 2017-04-14 13:27 | NUR ---
REPORT GIVEN TO TIMOTHY ON 1NO DIST BOOKED
--- NOTE | 2017-04-14 13:59 | Event Note ---
Event Note Event Note: Patient seen and examined the morning still appears weak and lethargic, could not able to walk much with the physical therapy because of dizziness. 1. Epistaxis: Talked to Dr. Garcia over the phone, she mentioned to keep in the nasal packing for now(nasal packing done on 04/12) for total of 5 days and start the patient on prophylaxis antibiotics. -We'll start the patient on on Augmentin -Continue to monitor blood pressure, patient mentioned that she's been getting sick with Norvasc and discontinue Norvasc start the patient on hydralazine 10 mg 3 times a day. -Blood pressure is currently well controlled. Holding off cardiology consult for now. -According to hold aspirin -Keep the patient pain free -In case patient rebleed, will call Dr. Garcia again. 2. Thrombocytopenia * Talked to Dr. 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 Huerta as an outpatient biopsy.Biopsy has not done due to patient age and underlying comorbidities * Her platelet count has been low in the past as well, so nothing acutely can be done right now. * Continue to monitor her platelet count. * Dr. Ang will come and see the patient in the evening.
[2017-04-14 14:00] VITALS: BP 180/64
--- NOTE | 2017-04-14 14:00 | NUR ---
RECEIVED FROM ER: AN 86 YEAR OLD FEMALE ADMITTED WITH HTN CRISIS. PATIENT SETTLED INTO ROOM, CALL OCHOA IN REACH. REVIEWED POC WITH PATIENT. BP 180/64, P 64, NOTIFIED RESIDENT DR REDDING #[id number]. PER RESIDENT WILL START APRESOLINE NOW. NOTIFIED PHARMACY, AWAITING TO COME FROM [facility]. SEE NURSING ASSESSMENT FLOWSHEETS FOR FURTHER DOCUMENTATION.
--- NOTE | 2017-04-14 14:13 | CT SCAN REPORT ---
EXAMINATION: CT HEAD WITHOUT CONTRAST CLINICAL INFORMATION: Weakness. Hypertensive urgency. COMPARISON: None. TECHNIQUE: Contiguous axial imaging was performed from the skull base to vertex without intravenous contrast. DLP: 625 mGy-cm. FINDINGS: There is no evidence of acute intracranial hemorrhage or territorial infarction. No abnormal mass effect or midline shift is seen. Castañeda to white matter differentiation is well preserved. No extra-axial fluid collections are identified. No hydrocephalus. Proportional prominence of the ventricles and sulcal spaces is consistent with mild volume loss. Patchy periventricular and deep white matter hypoattenuation is consistent with moderate small vessel ischemic changes. There is prominent calcification along the falx and tentorium. The osseous structures and soft tissues are normal. Moderate opacification of the left maxillary sinus. The mastoid air cells and visualized portions of the paranasal sinuses are otherwise well aerated. IMPRESSION: No acute intracranial pathology. Mild volume loss with moderate small vessel ischemic changes.
--- NOTE | 2017-04-14 14:47 | PN- Att Addend ---
Attending Addendum Attending Brief Note Patient seen and examined, was feeling very tired. She was admitted with a hypertensive urgency as well as epistaxis. Patient claims that Norvasc made her nervous and jittery. Vital Signs Date Time Temp Pulse Resp B/P B/P Pulse O2 O2 Flow FiO2 Mean Ox Delivery Rate 04/14 1313 97.9 68 20 160/72 98 Room Air 04/14 1020 68 173/71 04/14 1020 68 173/71 04/14 0805 98.2 68 18 173/71 97 Room Air 04/14 0541 98.1 65 16 160/77 96 Room Air 04/14 0322 97.5 64 16 187/77 95 Room Air 04/13 2309 66 181/74 04/13 2241 97.3 62 18 161/69 96 Room Air 04/13 2239 202/79 04/13 2210 98.1 67 16 211/92 97 Room Air 04/13 2030 220/80 04/13 1946 97.6 62 16 220/80 95 Room Air 04/13 1839 97.2 68 18 188/77 96 Room Air 04/13 1708 98.7 72 18 133/82 97 Room Air on exam; aox3. nad. heent; Rhiono rocket inside the nose with nasal packing cv; s1,s2, rrr resp; clear abd; soft, nt, bs+ ext; no edema. Laboratory Tests 04/14 04/13 0546 2046 Chemistry Troponin I (< 0.11 ng/ml) 0.05 Urines Urine Color (YEL,AMB,STR) STRAW Urine Clarity (CLEAR) CLEAR Urine pH (5.0 - 8.0) 6.0 Ur Specific [place] (1.001 - 1.035) <= 1.005 Urine Protein (NEG,<30 MG/DL) NEG Urine Ketones (NEG) NEG Urine Nitrite (NEG) NEG Urine Bilirubin (NEG) NEG Urine Urobilinogen (0.1 - 1.0 EU/dl) 0.2 Ur Leukocyte Esterase (NEG) NEG Ur Microscopic SEDIMENT EXAMINED Urine RBC (0 - 5 /HPF) RARE Urine WBC (0 - 2 /HPF) 1-3 H Ur Epithelial Cells (NONE,FEW) FEW Urine Bacteria (NEG/NONE) RARE H Urine Hemoglobin (NEG) SMALL H Urine Glucose (N MG/DL) NEG 05/23 1825 Chemistry Sodium (137 - 145 mmol/L) 132 L Potassium (3.5 - 5.1 mmol/L) 4.0 Chloride (98 - 107 mmol/L) 95 L Carbon Dioxide (22 - 30 mmol/L) 26 Anion Gap (5 - 16) 11 BUN (7 - 17 mg/dL) 45 H Creatinine (0.5 - 1.0 mg/dL) 1.7 H Estimated GFR (>60 ml/min) 28 L BUN/Creatinine Ratio (7 - 25 %) 26.5 H Glucose (65 - 99 mg/dL) 118 H Calcium (8.4 - 10.2 mg/dL) 9.1 Total Bilirubin (0.2 - 1.3 mg/dL) 0.5 AST (14 - 36 U/L) 28 ALT (9 - 52 U/L) 36 Alkaline Phosphatase (<127 U/L) 59 Troponin I (< 0.11 ng/ml) 0.05 Total Protein (6.3 - 8.2 g/dL) 7.6 Albumin (3.5 - 5.0 g/dL) 4.3 Globulin (1.9 - 4.2 gm/dL) 3.3 Albumin/Globulin Ratio (1.1 - 2.2 %) 1.3 Coagulation PT (9.4 - 12.5 SEC) 11.6 INR (0.90 - 1.19) 1.11 APTT (25 - 37 SEC) 28 Hematology CBC w Diff NO MAN DIFF REQ WBC (4.8 - 10.8 /CUMM) 5.0 RBC (4.20 - 5.40 /CUMM) 2.74 L Hgb (12.0 - 16.0 G/DL) 9.5 L Hct (37 - 47 %) 28.2 L MCV (81.0 - 99.0 FL) 102.8 H MCH (27.0 - 31.0 PG) 34.6 H RDW (11.5 - 14.5 %) 14.3 Plt Count (130 - 400 /CUMM) 92 L MPV (7.4 - 10.4 FL) 11.5 H Gran % (42.2 - 75.2 %) 86.0 H Lymphocytes % (20.5 - 51.1 %) 11.3 L Monocytes % (1.7 - 9.3 %) 2.4 Eosinophils % (0 - 5 %) 0 Basophils % (0.0 - 2.0 %) 0.3 Absolute Granulocytes (1.4 - 6.5 /CUMM) 4.3 Absolute Lymphocytes (1.2 - 3.4 /CUMM) 0.6 L Absolute Monocytes (0.10 - 0.60 /CUMM) 0.1 L Absolute Eosinophils (0.0 - 0.7 /CUMM) 0 Absolute Basophils (0.0 - 0.2 /CUMM) 0 PUBS MCHC (33.0 - 37.0 G/DL) 33.6 A/P; 86 y/o F with pmh sig for HTN, hypothyroidism, basal cell carcinoma, CKD stage 3B, compression fracture, Cdiff colitis , history of A. fib in the past, who was admitted with hypertensive urgency, epistaxis. Patient received nasal nasal and on Wednesday prior to this admission and she was given a dose of Augmentin. ENT was called but they recommended keeping the patient on antibiotic and outpatient follow-up. Patient does have possible history of MDS that her chronic anemia as well as thrombocytopenia.Will keep an eye on her blood counts. Creatinine is at baseline.Blood pressure responded to amlodipine as well as lisinopril but patient feels jittery and nervous by deceiving amlodipine. At this point we did have to stop the amlodipine and that he treated with hydralazine. Continue other current medications.DVT prophylaxis: ALPS. Pt eval should be obtained. If patient develops active epistaxis, ENT should be called right away.
[2017-04-14 16:03] VITALS: BP 150/74
--- NOTE | 2017-04-14 16:44 | Cons- Hematology ---
General Information and HPI Consulting Request Date of Consult: 04/14/17 Requested By: DAVID ESCALANTE MD Reason for Consult: anemia, thrombocytopenia Source of Information: patient, old records Exam Limitations: no limitations History of Present Illness: Ms. 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 Due to persistent epistaxis, she came to the hospital for evaluation. She denies any other episode of epistaxis. She denies being sick recently. She has no respiratory issue. She has no fever or chills. She has not been sick recently. She has no new pain. She was seen previous on 04/11/2017 and had BP of 230/96. Epistaxis was controlled with Rhino Rocket. She continues to have epistaxis and was treated with afrin, thrombin, and more packing. She was to see ENT as an outpatient but have not been able to see them since she is in the hospital. Blood work on 04/13/2017 demonstrated platelet of 92,000 and hemoglobin of 9.5. She does report taking baby aspirin daily. 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 She has been followed by Dr. Wei as an outpatient. She never had a bone marrow biopsy to confirm diagnosis. She did not have any new symptoms or progression of her hematologic parameters. She was last seen in 10/2016. Her hemoglobin was 11.2 and hematocrit was 35.5%. Platelet count was 109,000. Her platelet count has been fluctuating in the past. She is also noted to have hypertension as an outpatient with BP 200-230/90-110. Allergies/Medications Allergies: Coded Allergies: No Known Allergies (04/11/17) Home Med List: Amiodarone HCl 100 MG TABLET 1 TAB PO DAILY HEART (Reported) Aspirin (Ecotrin*) 81 MG TABLET.DR 1 TAB PO DAILY HEART/BLOOD (Reported) Atorvastatin Calcium 10 MG TABLET 1 TAB PO DAILY CHOLESTEROL (Reported) Augmentin (Augmentin 500-125 Tablet) 500 MG-125 MG TABLET 1 TAB PO BID NASAL PACKING Dorzolamide HCl/Timolol Maleat (Dorzolamide-Timolol Eye Drops) 22.3 MG-6.8 MG/ML DROPS 1 GTT OPH BID BOTH EYES (Reported) Levothyroxine Sodium 75 MCG TABLET 1 TAB PO DAILY THYROID (Reported) Lisinopril 30 MG TABLET 1 TAB PO DAILY BP (Reported) Sertraline HCl 50 MG TABLET 1 TAB PO DAILY MENTAL HEALTH (Reported) Current Medications: Current Medications Sig/Maureen Start time Last Medication Dose Route Stop Time Status Admin Amlodipine Besylate 10 MG DAILY 04/14 1000 DC 04/14 PO 1020 Amlodipine Besylate 0 .STK-MED ONE 04/13 2033 DC PO Amlodipine Besylate 10 MG ONCE ONE 04/13 2015 DC 04/13 PO 04/13 Amoxicillin/ 500 MG Q12 04/14 1400 AC Clavulanate Potassium PO Atorvastatin Calcium 10 MG DAILY 04/14 1000 AC 04/14 PO 1020 Diazepam 0 .STK-MED ONE 04/14 0242 DC PO Diazepam 2 MG ONCE ONE 04/13 2315 DC 04/14 PO 04/13 231 0241 Diazepam 5 MG ONCE ONE 04/13 2300 CAN PO 04/13 2301 Hydralazine HCl 10 MG TID 04/14 2200 DC PO Hydralazine HCl 10 MG TID 04/14 1430 AC PO Labetalol HCl 0 .STK-MED ONE 04/13 2218 DC IV Labetalol HCl 10 MG ONCE ONE 04/13 2215 DC 04/13 IV 04/13 221 2239 Levothyroxine Sodium 0.075 MG DAILY AC 04/14 0700 AC 04/14 PO 1019 Lisinopril 30 MG DAILY 04/14 1000 AC 04/14 PO 1020 Sertraline HCl 50 MG DAILY 04/14 1000 AC 04/14 PO 1020 Sodium Chloride 1,000 ML .Q20H 04/14 0100 AC 04/14 IV 0241 Sodium Chloride 1,000 ML ONCE ONE 04/13 1830 DC 04/13 IV 04/14 0749 1832 Review of Systems Review of Systems Constitutional: Denies: chills, fever, weakness, unexplained weight loss. EENTM: Reports: see HPI, epistaxis. Denies: blurred vision, nasal pain, throat pain, throat swelling, mouth pain, tooth pain. Cardiovascular: Denies: chest pain, edema, peripheral edema. Respiratory: Denies: hemoptysis. GI: Denies: abdominal pain, melena, nausea, changes in stool. Genitourinary: Denies: dysuria. Musculoskeletal: Denies: back pain. Skin: Denies: rash. Neurological/Psychological: Reports: confusion. Hematologic/Endocrine: Reports: bruising, bleeding. Immunologic/Allergic: Denies: splenectomy, lymphadenopathy. All Other Systems: Reviewed and Negative Past History Travel History Traveled to [place] past 21 day No Medical History Neurological: NONE EENT: NONE Cardiovascular: hypertension, HYPERCHOLESTEROLEMIA ARRHYTHMIA Respiratory: NONE Gastrointestinal: NONE Hepatic: NONE Renal: NONE Musculoskeletal: NONE Psychiatric: anxiety Endocrine: HYPOTHYROIDISM Blood Disorders: MDS Surgical History Surgical History: non-contributory Family History Relations & Conditions If Any: MOTHER FH: diabetes in FH: hypertension FATHER Parkinsonism Psychosocial History Where Do You Live? Home Who Do You Live With? child, lives with her daughter Services at Home: None Primary Language: Khmer Smoking Status: Never Smoked ETOH Use: denies use Illicit Drug Use: denies illicit drug use Functional Ability ADLs Independent: dressing, eating, toileting, bathing. Ambulation: walker IADLs Independent: finances. Needs Assist: shopping, housework, food prep. ECHO Results (as available) Date of last Echo 08/01/14 EF% 65 Exam & Diagnostic Data Vital Signs and I&O Vital Signs Date Time Temp Pulse Resp B/P B/P Pulse O2 O2 Flow FiO2 Mean Ox Delivery Rate 04/14 1603 97.9 66 18 150/74 96 04/14 1313 97.9 68 20 160/72 98 Room Air 04/14 1020 68 173/71 04/14 1020 68 173/71 04/14 0805 98.2 68 18 173/71 97 Room Air 04/14 0541 98.1 65 16 160/77 96 Room Air 04/14 0322 97.5 64 16 187/77 95 Room Air 04/13 2309 66 181/74 04/13 2241 97.3 62 18 161/69 96 Room Air 04/13 2239 202/79 04/13 2210 98.1 67 16 211/92 97 Room Air 04/13 2030 220/80 04/13 1946 97.6 62 16 220/80 95 Room Air 04/13 1839 97.2 68 18 188/77 96 Room Air 04/13 1708 98.7 72 18 133/82 97 Room Air Intake & Output 04/14 1600 04/14 0800 04/14 0000 Intake Total 60 Output Total 200 Balance -140 Intake, Oral 60 Output, Urine 200 Patient 52.163 kg 52.163 kg Weight Weight Reported by Patient Reported by Patient Measurement Method Physical Exam General Appearance: no apparent distress, alert, awake, comfortable, thin Head: atraumatic Eyes: Bilateral: normal appearance, PERRL. Ears, Nose, Throat: normal pharynx, significant amount dry blood in left nare with few area of fresh blood, right nare with less dry blood Respiratory: normal breath sounds, chest non-tender, no respiratory distress Cardiovascular: regular rate/rhythm Gastrointestinal: normal bowel sounds, soft, non-tender, no organomegaly Extremities: no edema Skin: ecchymosis Lymphatic: no anterior cervical jadiel Last 48 Hours of Lab Results: Laboratory Tests 04/14 04/13 0546 2046 Chemistry Troponin I (< 0.11 ng/ml) 0.05 Urines Urine Color (YEL,AMB,STR) STRAW Urine Clarity (CLEAR) CLEAR Urine pH (5.0 - 8.0) 6.0 Ur Specific Elizabeth (1.001 - 1.035) <= 1.005 Urine Protein (NEG,<30 MG/DL) NEG Urine Ketones (NEG) NEG Urine Nitrite (NEG) NEG Urine Bilirubin (NEG) NEG Urine Urobilinogen (0.1 - 1.0 EU/dl) 0.2 Ur Leukocyte Esterase (NEG) NEG Ur Microscopic SEDIMENT EXAMINED Urine RBC (0 - 5 /HPF) RARE Urine WBC (0 - 2 /HPF) 1-3 H Ur Epithelial Cells (NONE,FEW) FEW Urine Bacteria (NEG/NONE) RARE H Urine Hemoglobin (NEG) SMALL H Urine Glucose (N MG/DL) NEG 04/13 1825 Chemistry Sodium (137 - 145 mmol/L) 132 L Potassium (3.5 - 5.1 mmol/L) 4.0 Chloride (98 - 107 mmol/L) 95 L Carbon Dioxide (22 - 30 mmol/L) 26 Anion Gap (5 - 16) 11 BUN (7 - 17 mg/dL) 45 H Creatinine (0.5 - 1.0 mg/dL) 1.7 H Estimated GFR (>60 ml/min) 28 L BUN/Creatinine Ratio (7 - 25 %) 26.5 H Glucose (65 - 99 mg/dL) 118 H Calcium (8.4 - 10.2 mg/dL) 9.1 Total Bilirubin (0.2 - 1.3 mg/dL) 0.5 AST (14 - 36 U/L) 28 ALT (9 - 52 U/L) 36 Alkaline Phosphatase (<127 U/L) 59 Troponin I (< 0.11 ng/ml) 0.05 Total Protein (6.3 - 8.2 g/dL) 7.6 Albumin (3.5 - 5.0 g/dL) 4.3 Globulin (1.9 - 4.2 gm/dL) 3.3 Albumin/Globulin Ratio (1.1 - 2.2 %) 1.3 Coagulation PT (9.4 - 12.5 SEC) 11.6 INR (0.90 - 1.19) 1.11 APTT (25 - 37 SEC) 28 Hematology CBC w Diff NO MAN DIFF REQ WBC (4.8 - 10.8 /CUMM) 5.0 RBC (4.20 - 5.40 /CUMM) 2.74 L Hgb (12.0 - 16.0 G/DL) 9.5 L Hct (37 - 47 %) 28.2 L MCV (81.0 - 99.0 FL) 102.8 H MCH (27.0 - 31.0 PG) 34.6 H RDW (11.5 - 14.5 %) 14.3 Plt Count (130 - 400 /CUMM) 92 L MPV (7.4 - 10.4 FL) 11.5 H Gran % (42.2 - 75.2 %) 86.0 H Lymphocytes % (20.5 - 51.1 %) 11.3 L Monocytes % (1.7 - 9.3 %) 2.4 Eosinophils % (0 - 5 %) 0 Basophils % (0.0 - 2.0 %) 0.3 Absolute Granulocytes (1.4 - 6.5 /CUMM) 4.3 Absolute Lymphocytes (1.2 - 3.4 /CUMM) 0.6 L Absolute Monocytes (0.10 - 0.60 /CUMM) 0.1 L Absolute Eosinophils (0.0 - 0.7 /CUMM) 0 Absolute Basophils (0.0 - 0.2 /CUMM) 0 PUBS MCHC (33.0 - 37.0 G/DL) 33.6 Imaging/Other Studies: CT head 04/14/2017: No acute intracranial pathology. Mild volume loss with moderate small vessel ischemic changes. Assessment/Plan Assessment: Ms. 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 Her blood work was reviewed and was notable for platelet count of 92,000 and hemoglobin of 9.5. These are lower than the once in 10/2016. Epistaxis may be related to the lower platelet count but unlikely. Aspirin effect may also make the bleeding worse. She has presumed MDS diagnosed by Dr. Brendon Fink. She has not had any biopsy to make a diagnosis. She has a Rhino Rocket. ENT will see her tomorrow. Her overall MDS seem stable. For her bleeding, ENT evaluation would be essential. If bleeding continues, trial transfusion of platelet count due to aspirin effect may be needed. Recommendations: 1. ENT evaluation 2. Monitor CBC 3. Can try platelet transfusion to decrease aspirin effects 4. If perisistent bleeding, may trial tranexamic acid (Amicar) liquid applied to nares Problem List: 1. Hypertensive urgency 2. Thrombocytopenia 3. Epistaxis Other Findings/Comments: Please call [phone] with any questions or concerns. Consult Acknowledgment - Thank you for your consult request.
--- NOTE | 2017-04-14 18:47 | Cons- Cardiology ---
General Information and HPI Consulting Request Date of Consult: 04/14/17 Requested By: DAVID ESCALANTE MD Reason for Consult: Poorly controlled hypertension. Source of Information: patient, old records Exam Limitations: poor historian History of Present Illness: Ms. Lexus Glez is an 86-year-old female with a history of hypertension, chronic kidney disease, dyslipidemia, hypothyroidism, myelodysplastic syndrome, and medical compliance issues who presented to the ED with a complaint of persistent epistaxis and poorly controlled hypertension. She states that her blood pressure is poorly controlled on an outpatient basis with readings that range from 200-230 mmHg systolic and 90-110 mmHg diastolic. Her epistaxis was controlled following placement of a nasal tampon. She denies any complaints of chest discomfort, palpitations, shortness of breath , orthopnea, paroxysmal nocturnal dyspnea, lower some edema, dry cough, syncope, near syncope, lightheadedness, dizziness, or claudication. Additionally, she denies any history of coronary, valvular, dysrhythmic/ conduction disease, or cardiomyopathy. Allergies/Medications Allergies: Coded Allergies: No Known Allergies (04/11/17) Home Med List: Amiodarone HCl 100 MG TABLET 1 TAB PO DAILY HEART (Reported) Aspirin (Ecotrin*) 81 MG TABLET.DR 1 TAB PO DAILY HEART/BLOOD (Reported) Atorvastatin Calcium 10 MG TABLET 1 TAB PO DAILY CHOLESTEROL (Reported) Dorzolamide HCl/Timolol Maleat (Dorzolamide-Timolol Eye Drops) 22.3 MG-6.8 MG/ML DROPS 1 GTT OPH BID BOTH EYES (Reported) Hydralazine HCl 25 MG TABLET 1 TAB PO TID HIGH BP Levothyroxine Sodium 75 MCG TABLET 1 TAB PO DAILY THYROID (Reported) Lisinopril 30 MG TABLET 1 TAB PO DAILY BP (Reported) Lisinopril 20 MG TABLET 2 TAB PO DAILY high bp Sertraline HCl 50 MG TABLET 1 TAB PO DAILY MENTAL HEALTH (Reported) Review of Systems Review of Systems: 14 point system review was obtained and was noncontributory, other than as above. Past History Travel History Traveled to [place] past 21 day No Medical History Neurological: NONE EENT: NONE Cardiovascular: hypertension, HYPERCHOLESTEROLEMIA ARRHYTHMIA Respiratory: NONE Gastrointestinal: NONE Hepatic: NONE Renal: NONE Musculoskeletal: NONE Psychiatric: anxiety Endocrine: HYPOTHYROIDISM Blood Disorders: MDS Surgical History Surgical History: non-contributory Family History Relations & Conditions If Any: MOTHER FH: diabetes in FH: hypertension FATHER Parkinsonism Psychosocial History Where Do You Live? Home Who Do You Live With? child, lives with her daughter Services at Home: None Primary Language: Honduran Smoking Status: Never Smoked ETOH Use: denies use Illicit Drug Use: denies illicit drug use Functional Ability ADLs Independent: dressing, eating, toileting, bathing. Ambulation: walker IADLs Independent: finances. Needs Assist: shopping, housework, food prep. ECHO Results (as available) Date of last Echo 08/01/14 EF% 65 Exam & Diagnostic Data Vital Signs and I&O Vital Signs Date Time Temp Pulse Resp B/P B/P Pulse O2 O2 Flow FiO2 Mean Ox Delivery Rate 04/14 1636 70 164/74 04/14 1603 97.9 66 18 150/74 96 04/14 1400 Room Air 04/14 1400 98.8 64 18 180/64 93 Room Air 04/14 1313 97.9 68 20 160/72 98 Room Air 04/14 1020 68 173/71 04/14 1020 68 173/71 04/14 0805 98.2 68 18 173/71 97 Room Air 04/14 0541 98.1 65 16 160/77 96 Room Air 04/14 0322 97.5 64 16 187/77 95 Room Air 04/13 2309 66 181/74 04/13 2241 97.3 62 18 161/69 96 Room Air 04/13 2239 202/79 04/13 2210 98.1 67 16 211/92 97 Room Air 04/13 2030 220/80 04/13 1946 97.6 62 16 220/80 95 Room Air 04/13 1839 97.2 68 18 188/77 96 Room Air Intake & Output 04/14 1600 04/14 0800 04/14 0000 04/13 1600 04/13 0800 04/13 0000 Intake Total 60 Output Total 200 Balance -140 Intake, Oral 60 Output, Urine 200 Patient 115 lb 115 lb Weight Weight Reported by Patient Reported by Patient Measurement Method Physical Exam: Well-developed, well-nourished elderly female no acute distress. Vital signs: See above. HEENT: Normocephalic, atraumatic, EOMI, slightly dry mucous membranes. Neck: No JVD, no bruits. Lungs: Clear to auscultation. Heart: S1, S2. Abdomen: Soft, nontender, positive bowel sounds. Extremities: No edema. Assessment/Plan Assessment/Plan [id number] w/ HTN, CKD, HLD, hypothyroidism, MDS, and medical noncompliance who presented to the ED with a complaint of persistent epistaxis and poorly controlled HTN. She also appears to have been on amiodarone 100 mg daily as an outpatient and there is mention made of "arrhythmia" in her past medical history, however, it is not clear whether she is on amiodarone for a history of paroxysmal atrial fibrillation or for some type of ventricular arrhythmia. She is presently on an antihypertensive regimen of hydralazine 10 mg 3 times daily and lisinopril 30 mg daily. She had been on amlodipine 10 mg daily and this was not tolerated. Recommendations: * Continue on telemetry, follow-up ECG. * Continue present and hypertensive regimen and titrate up hydralazine to 25 mg 3 times daily if needed. * Can also increase the lisinopril to 40 mg daily. * Schedule echocardiogram to assess for left ventricular hypertrophy, systolic/ diastolic left ventricular function, etc. * Mechanical DVT prophylaxis. Consult Acknowledgment - Thank you for your consult request. - Thank you for your consult request.
[2017-04-14 22:53] VITALS: BP 130/52
--- NOTE | 2017-04-15 07:15 | PN- Housestaff ---
BLACK ROACH 04/15/17 0715: Subjective Follow-up For: HYPERTENSION, EPISTAXIS, LOW PLATELET 2/2 TO MDS Complaints: no complaints Subjective: I have seen and examiend the patient today morning, she was doing well,is little nervous as she doesnt like hosptials. dry blood present at nares with nasal drain present, no episodes of bleeding overnight. no new complaints. Review of Systems Constitutional: Reports: malaise, weakness. Denies: chills, diaphoresis, fever. EENTM: Denies: blurred vision, double vision, visual changes, eye pain. Cardiovascular: Denies: chest pain, edema, orthopena, palpitations. Respiratory: Denies: cough, hemoptysis, orthopnea, short of breath. Hematologic/Endocrine: Denies: bleeding. Objective Last 24 Hrs of Vital Signs/I&O Vital Signs Date Time Temp Pulse Resp B/P B/P Pulse O2 O2 Flow FiO2 Mean Ox Delivery Rate 04/14 2253 97.9 67 18 130/52 96 Room Air 04/14 2156 66 164/60 04/14 1636 70 164/74 04/14 1603 97.9 66 18 150/74 96 04/14 1400 Room Air 04/14 1400 98.8 64 18 180/64 93 Room Air 04/14 1313 97.9 68 20 160/72 98 Room Air 04/14 1020 68 173/71 04/14 1020 68 173/71 04/14 0805 98.2 68 18 173/71 97 Room Air Intake & Output 04/15 0800 04/15 0000 04/14 1600 Intake Total 550 880 Output Total 200 500 Balance 350 380 Intake, IV 400 400 Intake, Oral 150 480 Number 0 Bowel Movements Output, Urine 200 500 Physical Exam General Appearance: Alert, Oriented X3, Cooperative, No Acute Distress HEENT: Atraumatic, PERRLA, EOMI Cardiovascular: Normal S1, Normal S2, No Murmurs Lungs: Clear to Auscultation, Normal Air Movement Abdomen: Normal Bowel Sounds, Soft, No Tenderness, No Hepatospenomegaly Extremities: No Clubbing, No Cyanosis, No Edema, Normal Pulses Vascular: Normal Pulses Current Medications: Current Medications Sig/Maureen Start time Last Medication Dose Route Stop Time Status Admin Amlodipine Besylate 10 MG DAILY 04/14 1000 DC 04/14 PO 1020 Amoxicillin/ 500 MG Q12 04/14 1400 AC 04/15 Clavulanate Potassium PO 0655 Atorvastatin Calcium 10 MG DAILY 04/14 1000 AC 04/14 PO 1020 Hydralazine HCl 10 MG TID 04/14 2200 DC PO Hydralazine HCl 10 MG TID 04/14 1430 AC 04/14 PO 2156 Levothyroxine Sodium 0.075 MG DAILY AC 04/14 0700 AC 04/15 PO 0625 Lisinopril 40 MG DAILY 04/15 1000 AC PO Lisinopril 30 MG DAILY 04/14 1000 DC 04/14 PO 1020 Sertraline HCl 50 MG DAILY 04/14 1000 AC 04/14 PO 1020 Sodium Chloride 1,000 ML .Q20H 04/14 0100 AC 04/15 IV 0304 Sodium Chloride 1,000 ML ONCE ONE 04/13 1830 DC 04/13 IV 04/14 0749 1832 Last 24 Hrs of Lab/Wally Results Last 24 Hrs of Labs/Mics: Laboratory Tests 04/15/17 0630: Sodium Pending, Potassium Pending, Chloride Pending, Carbon Dioxide Pending, Anion Gap Pending, BUN Pending, Creatinine Pending, BUN/Creatinine Ratio Pending , CBC w Diff Pending, WBC Pending, RBC Pending, Hgb Pending, Hct Pending, MCV Pending, MCH Pending, RDW Pending, Plt Count Pending, MPV Pending, PUBS MCHC Pending Microbiology 04/14 1346 STOOL: Clostridium difficile Toxin A & B - COLB Lines/Diet/Fluids Restraints: none Assessment/Plan Assessment: This is a 86-year-old female nonsmoker, no alcohol, no illcit drug use with past medical history of hypertension, dyslipidemia,hypothyroidism, basal cell carcinoma s/p resection,previous h/o hip fracture in 2012 and 2013,previous cataract and thyroid surgery,glaucoma, depression last seen in February 2014 for left intertrochanteric hip fracture seen at the emergency department on 2016, 04/12/2017 and 04/13/2017 with chief complaint of epistaxis, noted to have high blood pressure on all occassions, admitted on april 13 to telemetry for epistaxis, hypertensive urgency and thrombocytopenia. Today she is doing better, hadnt had any episodes of bleeding after being admitted, dry blood and clot present mainly in the left nare, her BP is better controlled, hematology has seen her and recommend OP follow up, she has OP appointment with them in last week of april, with plan to consider trial of tranexamic acid (Amicar) liquid applied to nares, if she has any further bleeding. Problem list along with assessment and plan. #1 Epistaxis * No more episodes of bleeding after admission. * Patient has h/o MDS ( no Bx done) , and that is the reason of low platelets, however the epistaxis seems to be 2/2 to low platelet in combination with high BP * BP now better controlled. * If she bleeds again, consider trial of tranexamic acid (Amicar) liquid applied to nares. * For now stable, with nasal packing and drain present. * ENT was consulted but hsn't seen patient yet, but if she bleeds again, plan to call them stat. #2 hypertensvie urgeny * Cardiology consult appreciated. * BP under control * systolic : 130 ( last night) * diastolic : 52 ( last night) * will ct ot monitor BP. * ct hydralazine 10 mg tid, if BP still high will increase to 25 TID * Intially patient was started on amlodipine,however she didnto tolerate it well so was d/c'd. * lisinopril 40 mg also increased from 30, to start today in am. * Echo pending for today as per cardio. #3 Thrombocytopenia * Hematology consult appreciated. * Patient was diagnosed with MDS in 2014, however no bone BX was done. * Patient to follow up with hematology as OP * has appt in last week of april. * Ct to monitor platelets. * am plt count pending. * DVT px with ALPS. #4 History of atrial fibrillation. * The patient in normal sinus rhythm, EKG showed normal sinus rhythm with rate of 64, VT of 260, first-degree A-V block, left axis deviation. * ct amiodarone at home dosage. #5 Diarrhea * Patient reports having diarrhea on and off since last 3-4 days prior to presentation, currently not having any episodes of diarrhea. #6 history of anxiety/depression. * Continue sertraline at home dosage. #7 history of hypothyroidism. * Continue levothyroxine 75 g daily. #8 chronic kidney disease. * Patient's creatinine is at baseline. * Continue to monitor. #9 Gait instabilty * pt saw patient 5/24/17, assist of one, however as per them will benefit from home PT v/s STR, will follow today. * case mx for placement/home PT, will touch base today * CT fall precautions. #10 Anxiety,depression, white coat hypertension * ct sertralin * valium prn if very anxious, helps at night. Pt is DNR/DNI. heart healthy diet mild, mod severe PP DVT px : alps 2/2 epistaxis Problem List: 1. Hypertensive urgency 2. MDS (myelodysplastic syndrome) 3. Gait instability 4. Anemia 5. Weakness 6. Epistaxis 7. Thrombocytopenia 8. Hypothyroidism 9. Hyperlipidemia 10. Hypertension Pain Ratin Pain Location: none Pain Goal: Remain pain free Pain Plan: tylenol Tomorrow's Labs & Rationales: monitoe low platelets. Discharge Plan Discharge Disposition: awaiting further evaluation today Stable for Discharge? Yes Anticipated Discharge (Day): today DAVID ESCALANTE MD 04/15/17 1332: Attending MD Review Statement Attending Statement Attending MD Statement: examined this patient, discuss w/resident/PA/SOFTWARE TEST TECHNICIAN, agreed w/resident/PA/SOFTWARE TEST TECHNICIAN, reviewed EMR data (avail), discussed with nursing, discussed with case mgmt, reviewed images, amended to note Attending Assessment/Plan: Patient seen and examined, feels slightly better. BP is better. She was started on hydralazine and lisinopril dose was increased. No further nose bleed. Vital Signs Date Time Temp Pulse Resp B/P B/P Pulse O2 O2 Flow FiO2 Mean Ox Delivery Rate 04/15 0945 144/70 04/15 0945 144/70 04/15 0800 98.0 67 20 136/60 96 Room Air 04/14 2253 97.9 67 18 130/52 96 Room Air 04/14 2156 66 164/60 04/14 1636 70 164/74 04/14 1603 97.9 66 18 150/74 96 04/14 1400 Room Air 04/14 1400 98.8 64 18 180/64 93 Room Air on exam; aox3, nad. cv; s1,s2, rrr resp; clear abd; soft, nt, bs+ ext; no edema. Laboratory Tests 04/15 0630 Chemistry Sodium (137 - 145 mmol/L) 138 Potassium (3.5 - 5.1 mmol/L) 3.7 Chloride (98 - 107 mmol/L) 104 Carbon Dioxide (22 - 30 mmol/L) 26 Anion Gap (5 - 16) 9 BUN (7 - 17 mg/dL) 34 H Creatinine (0.5 - 1.0 mg/dL) 1.5 H Estimated GFR (>60 ml/min) 33 L BUN/Creatinine Ratio (7 - 25 %) 22.7 Hematology CBC w Diff NO MAN DIFF REQ WBC (4.8 - 10.8 /CUMM) 3.1 L RBC (4.20 - 5.40 /CUMM) 2.69 L Hgb (12.0 - 16.0 G/DL) 9.4 L Hct (37 - 47 %) 27.5 L MCV (81.0 - 99.0 FL) 102.4 H MCH (27.0 - 31.0 PG) 34.9 H RDW (11.5 - 14.5 %) 14.2 Plt Count (130 - 400 /CUMM) 90 L MPV (7.4 - 10.4 FL) 11.3 H Gran % (42.2 - 75.2 %) 77.2 H Lymphocytes % (20.5 - 51.1 %) 19.1 L Monocytes % (1.7 - 9.3 %) 2.7 Eosinophils % (0 - 5 %) 0.6 Basophils % (0.0 - 2.0 %) 0.4 Absolute Granulocytes (1.4 - 6.5 /CUMM) 2.4 Absolute Lymphocytes (1.2 - 3.4 /CUMM) 0.6 L Absolute Monocytes (0.10 - 0.60 /CUMM) 0.1 L Absolute Eosinophils (0.0 - 0.7 /CUMM) 0 Absolute Basophils (0.0 - 0.2 /CUMM) 0 PUBS MCHC (33.0 - 37.0 G/DL) 34.1 A/P: 86 y/o F with pmh sig for HTN, hypothyroidism, basal cell carcinoma, CKD stage 3B, compression fracture, Cdiff colitis , history of A. fib in the past, who was admitted with hypertensive urgency, epistaxis. Patient received nasal tempon on Wednesday prior to this admission and she was given a dose of Augmentin. Blood pressure better on current regimen. No further nose bleed. Patient was started on Augmentin. ENT was called yesterday, they would like to see the patient as an outpatient as she still has that nasal packing and there is no further nose bleeds. Platelets are stable. Patient seen by physical therapy and she wants to go to rehabilitation. Possible Dc in am.
[2017-04-15 08:00] VITALS: BP 136/60
[2017-04-15] MEDS ORDERED: AUGMENTIN 500-1 EACH PO (08:00)
[2017-04-15] MEDS ORDERED: HYDRALAZINE HCL10 M1 PO (08:00)
[2017-04-15] MEDS ORDERED: LISINOPRIL20 M1 PO (08:00)
--- NOTE | 2017-04-15 08:02 | Patient Discharge Instructions ---
Discharge Instructions General Discharge Information You were seen/treated for: high BP and epistaxis Special Instructions: please follow a PCP within 1 week of discharge. Please follow up with hematology as scheduled. Please follow up with ENT. Please note that your blood pressure medication has been increased and new medication has been added for better blood pressure. Please continue to take the medications as prescribed. Of note you have elevated thyroid levels, please continue to follow up as OP with PCP and repeat Thyroid test. Diet Continue normal diet: No Recommended Diet: Heart Healthy Activity Full Activity/No Limits: No Activity Self Limited: Yes Acute Coronary Syndrome Inclusion Criteria At DC or during hospital stay patient has or had the following: ACS DIAGNOSIS No Discharge Core Measures Meds if any: Prescribed or Continued at Discharge Meds if any: NOT Prescribed or Continued at Discharge Congestive Heart Failure Inclusion Criteria At DC or during hospital stay patient has or had the following: CHF DIAGNOSIS No Discharge Core Measures Meds if any: Prescribed or Continued at Discharge Meds if any: NOT Prescribed or Continued at Discharge Cerebrovascular accident Inclusion Criteria At DC or during hospital stay patient has or had the following: CVA/TIA Diagnosis No Discharge Core Measures Meds if any: Prescribed or Continued at Discharge Meds if any: NOT Prescribed or Continued at Discharge Venous thromboembolism Inclusion Criteria VTE Diagnosis No VTE Type NONE VTE Confirmed by (Test) NONE Discharge Core Measures - Per Current guidelines, there needs to be overlap - treatment for the first 5 days of Warfarin therapy. - If discharged on Warfarin prior to 5 days of - overlap therapy, the patient will need to be - assessed for post discharge needs including - *Post discharge parental anticoagulation - *Warfarin and/or parental anticoagulation education - *Follow up date to check INR post discharge At least 5 days overlap therapy as Inpatient No Meds if any: Prescribed or Continued at Discharge Note: Overlap Therapy is Warfarin and Anticoagulant Meds if any: NOT Prescribed or Continued at Discharge
[2017-04-15 08:10] LABS: ABSOLUTE BASOPHIL COUNT 0 /CUMM (0.0-0.2); ABSOLUTE EOSINOPHIL COUNT 0 /CUMM (0.0-0.7); ABSOLUTE GRANULOCYTE CT 2.4 /CUMM (1.4-6.5); ABSOLUTE LYMPH COUNT 0.6 /CUMM (1.2-3.4); ABSOLUTE MONOCYTE COUNT 0.1 /CUMM (0.10-0.60); BASOPHIL % 0.4 % (0.0-2.0); EOSINOPHIL % 0.6 % (0-5); GRANULOCYTE % 77.2 % (42.2-75.2); HEMATOCRIT 27.5 % (37-47); MEAN CORPUSCULAR HGB 34.9 PG (27.0-31.0); MEAN CORPUSCULAR HGB CONC 34.1 G/DL (33.0-37.0); MEAN CORPUSCULAR VOLUME 102.4 FL (81.0-99.0); MEAN PLATELET VOLUME 11.3 FL (7.4-10.4); RBC DISTRIBUTION WIDTH 14.2 % (11.5-14.5); RED BLOOD CELL CT 2.69 /CUMM (4.20-5.40); WHITE BLOOD CELL COUNT 3.1 /CUMM (4.8-10.8)
[2017-04-15 08:39] LABS: PLATELET COUNT 90 /CUMM (130-400)
--- NOTE | 2017-04-15 08:53 | Discharge Summary ---
Visit Information Visit Dates Admission Date: 04/13/17 Discharge Date: 04/16/17 Hospital Course Course Attending Physician: DAVID ESCALANTE MD Primary Care Physician: DAGOBERTO MENDES MD Hospital Course: This is a 86 YO female nonsmoker, nonalcoholic,no illcit drug abuse, history of hypertension, dyslipidemia, hypothyroidism, basal cell carcinoma status post resection, previous history of hip fracture in 2012 2013, previous cataract and thyroid surgery, depression, seen on subsequent 3 days at the emergency department for hypertension and epistaxis, HEENT again on 04/13/2017 with chief complaint of continued epistaxis in spite of using thrombin, Afrin, local nasal packing, with nasal drain placed and high blood pressure 220/80 on admission for was admitted to telemetry floor. Initially on admission her vitals were mostly stable except high blood pressure noted at 220/80. Lab-poe she had a white count of 5.0, low platelet at 92, which has been her baseline since one month prior to admission and has had fluctuations secondary to a suspected MDS, BUN and creatinine were noted to be 45/1.7 which was close to her baseline. She was admitted to the cardiac telemetry floor for following problems. #1 Continued epistaxis. * Patient was having epistaxis 3-4 days prior to admission secondary to high blood pressure along with low platelets secondary to MDS. On presentation she was in hypertensive urgency, with baseline creatinine close to 1.7 (basline) with no new end organ damage. Initially at the emergency department she received one-time of IV labetalol which brought her pressures down. Her lisinopril was increased from 30 to 40 mg daily.She was started on amlodipine while in hospital however she said that she was very nervous and jittery after the amlodipine so this was discontinued the very next day. She was continued on hydralazine 10 mg 3 times a day. Her pressure was better controlled on the hydralazine and lisinopril.Her hydralazine was increased to 25 mg 3 times a day compare with hydralazine 10 TID and lisinopril 40 mg daily stabilized her blood pressure.She did not have any further episodes of epistaxis during the hospital stay. Continued to have the nasal packing, she will be following up with ENT as outpatient. #2 thrombocytopenia * Hematolgoy consult was obtained, apparently patient was following up with Dr. Fink as outpatient and was diagnosed with MDS in 2014 however no bone biopsy was done. Low platelet was thought to be secondary to that. She is to follow up as outpatient with Dr. Fink and has an appointment in last week of April 2017. She was given DVT prophylaxis with Alps during the hospital stay. #3 hypertensive urgency. * Patient presented with systolic blood pressure over 200, blood pressure was managed with hydralazine 10 mg 3 times a day which was increased to 25 TID and lisinopril 40 mg daily, this was the new regimen that she was discharged on. Cardiology was consulted and an echocardiogram was obtained on 04/15/2017 which showed normal left ventricular size, no obvious wall motion abnormalities, diastolic dysfunction with impaired left ventricular relaxation and EF of 60%. #4 history of atrial fibrillation. * Patient was found to be in normal sinus rhythm on admission, rate of 64, first -degree AV block and left axis deviation. Patient has a h/o Paroxysmal A fib for which she is on amiodarone.Her amiodarone dosage was recently reduced to 100mg prior admission and she was discharged on it. Rate was aways well controlled. #5 history of anxiety/depression. * She was continue sertraline at same dosage #7 history of hypothyroidism. * She was cntd on levthyroxine 75 Mcg. #8 chronic kidney disease. * At baseline. #9 Gait instabilty * worked with PT, D/c to STR. #10 Anxiety,depression, white coat hypertension * She was ctnd on sertraline * valium prn was given when very anxious. Pt is DNR/DNI. heart healthy diet mild, mod severe PP DVT px : alps 2/2 epistaxis Allergies: Coded Allergies: No Known Allergies (04/11/17) Significant Procedures: SERVICE DATE: 04/14/17115 EXAM TYPE: CAT - CT HEAD WO IV CONTRAST EXAMINATION: CT HEAD WITHOUT CONTRAST CLINICAL INFORMATION: Weakness. Hypertensive urgency. COMPARISON: None. TECHNIQUE: Contiguous axial imaging was performed from the skull base to vertex without intravenous contrast. DLP: 625 mGy-cm. FINDINGS: There is no evidence of acute intracranial hemorrhage or territorial infarction. No abnormal mass effect or midline shift is seen. Castañeda to white matter differentiation is well preserved. No extra-axial fluid collections are identified. No hydrocephalus. Proportional prominence of the ventricles and sulcal spaces is consistent with mild volume loss. Patchy periventricular and deep white matter hypoattenuation is consistent with moderate small vessel ischemic changes. There is prominent calcification along the falx and tentorium. The osseous structures and soft tissues are normal. Moderate opacification of the left maxillary sinus. The mastoid air cells and visualized portions of the paranasal sinuses are otherwise well aerated. IMPRESSION: No acute intracranial pathology. Mild volume loss with moderate small vessel ischemic changes. SERVICE DATE: 04/15/17 EXAM TYPE: CARD - ECHOCARDIOGRAM FINDINGS Left Ventricle Normal left ventricular size, wall thickness and systolic function with no obvious regional wall motion abnormalities. Diastolic filling pattern is consistent with impaired LV relaxation. The ejection fraction is visually estimated at 60%. Right Ventricle The right ventricle is normal in size and function. Right Atrium The right atrium is normal in size. Left Atrium The left atrium is normal in size. The interatrial septum is intact. Mitral Valve The mitral valve is normal in structure and function. There is trace mitral regurgitation. Aortic Valve Structurally normal aortic valve without significant sclerosis or stenosis. There is trace aortic regurgitation. Tricuspid Valve The tricuspid valve is normal in structure and function. There is no tricuspid regurgitation. Pulmonic Valve Structurally normal pulmonic valve. There is no pulmonic regurgitation. Pericardium Normal pericardium without effusion. No pleural effusion. Great Vessels Normal aortic root dimension. The aortic arch and great vessels are well seen and are normal. CONCLUSIONS 1. Normal EF of 60% with impaired LV relaxation. 2. Trace mitral regurgitation. 3. Trace tricuspid regurgitation. Bradley Sanon M.D. (Electronically Signed) Final Date: 16 Apr 2017 08:18 MEASUREMENTS (Male / Female) Normal Values 2D ECHO LV Diastolic Diameter PLAX 3.9 cm 4.2 - 5.9 / 3.9 - 5.3 cm LV Systolic Diameter PLAX 2.4 cm 2.1 - 4.0 cm LV Fractional Shortening PLAX 38.5 % 25 - 46 % LV Ejection Fraction 2D Teich 69.4 % IVS Diastolic Thickness 1.0 cm LVPW Diastolic Thickness 0.9 cm LV Relative Wall Thickness 0.5 RV Internal Dim ED PLAX 2.1 cm 1.9 - 3.8 cm LVOT Diameter 1.8 cm Aortic Root Diameter 2.9 cm LA Systolic Diameter LX 2.7 cm 3.0 - 4.0 / 2.7 - 3.8 cm Ascending Aorta Diameter 3.1 cm DOPPLER AV Peak Velocity 120.0 cm/s AV Peak Gradient 5.8 mmHg AV Mean Velocity 79.5 cm/s AV Mean Gradient 3.0 mmHg AV Velocity Time Integral 24.0 cm LVOT Peak Velocity 82.0 cm/s LVOT Peak Gradient 2.7 mmHg LVOT Mean Velocity 54.2 cm/s LVOT Mean Gradient 1.0 mmHg LVOT Velocity Time Integral 20.9 cm LVOT Stroke Volume 53.2 cm AV Area Cont Eq vti 2.2 cm AV Area Cont Eq pk 1.7 cm MV Peak Velocity 106.0 cm/s MV Peak Gradient 4.5 mmHg MV Mean Velocity 62.6 cm/s MV Mean Gradient 2.0 mmHg Mitral E Point Velocity 66.6 cm/s Mitral A Point Velocity 104.0 cm/s Mitral E to A Ratio 0.6 MV PHT Velocity 87.6 cm/s MV Deceleration Edwards 206.0 cm/s MV Pressure Half Time 127.6 ms MV Area PHT 1.7 cm MV Deceleration Time 229.0 ms MR Peak Velocity 598.0 cm/s MR Peak Gradient 143.0 mmHg PV Peak Velocity 99.3 cm/s PV Peak Gradient 3.9 mmHg PV Mean Velocity 71.3 cm/s PV Mean Gradient 2.0 mmHg PV Velocity Time Integral 20.9 cm LV E' Lateral Velocity 5.3 cm/s Mitral E to LV E' Lateral Ratio 12.7 LV E' Septal Velocity 5.5 cm/s Mitral E to LV E' Septal Ratio 12.2 Disposition Summary Disposition Principal Diagnosis: #1 Hypertensive urgency #2 Epistaxis. #3 Thrombocytopenia 2/2 to MDS Additional Diagnosis: #4 H/o A fib on amidarone #5 Hypertension #6 Anxiety, depression #7 CKD Discharge Disposition: SNF Discharge Instructions General Discharge Information Code Status: Do Not Resucitate/Intubat Patient's Diet: Heart healthy deit Patient's Activity: As tolerated. Follow-Up Instructions/Appts: Please follow a PCP within 1 week of discharge. Please follow up with hematology as scheduled. Please follow up with ENT. Please note that your blood pressure medication has been increased and new medication has been added for better blood pressure. Please continue to take the medications as prescribed. Medications at Discharge Discharge Medications: Stop taking the following medications: Lisinopril (Lisinopril) 30 MG TABLET ORAL DAILY Qty = 90 Continue taking these medications: Sertraline HCl (Sertraline HCl) 50 MG TABLET 1 Tablet ORAL DAILY Qty = 90 Comments: Last Taken:04/16/17 Time:8:56A.M Amiodarone HCl (Amiodarone HCl) 100 MG TABLET 1 Tablet ORAL DAILY Qty = 90 Comments: Last Taken:NOT GIVEN THIS ADMISSION Time: Atorvastatin Calcium (Atorvastatin Calcium) 10 MG TABLET 1 Tablet ORAL DAILY Qty = 90 Comments: Last Taken:05/17/17 Time: 8:56A.M Levothyroxine Sodium (Levothyroxine Sodium) 75 MCG TABLET 1 Tablet ORAL DAILY Qty = 90 Comments: Last Taken:04/16/17 Time:6:30A.M Aspirin (Ecotrin*) 81 MG TABLET.DR 1 Tablet ORAL DAILY Comments: Last Taken:NOT GIVEN THIS ADMISSION Time: Dorzolamide HCl/Timolol Maleat (Dorzolamide-Timolol Eye Drops) 22.3 MG-6.8 MG/ML DROPS 1 Drop In the eye TWICE DAILY Qty = 10 Comments: Last Taken:04/16/17 Time:8:56A.M Start taking the following new medications: Lisinopril (Lisinopril) 20 MG TABLET 2 Tablet ORAL DAILY Days = 30 No Refills Comments: Last Taken:04/16/17 Time:8:56A.M Hydralazine HCl (Hydralazine HCl) 25 MG TABLET 1 Tablet ORAL THREE TIMES DAILY Days = 30 No Refills Comments: Last Taken:04/16/17 Time: 2:39P.M Tranexamic Acid (Lysteda) 650 MG TABLET 1 Tablet ORAL TWICE DAILY as needed for NASAL BLEEDING Qty = 30 No Refills Instructions: during menses Comments: NOT STARTED IN HOSPITAL Amoxicillin/Potassium Clav (Augmentin 875-125 Tablet) 875 MG-125 MG TABLET 1 Tablet ORAL TWICE DAILY Qty = 8 No Refills Comments: Last Taken:04/16/17 Time:8:56A.M Copies To: TRAE CHA,SYLVIA [place]; VIR[place]IA CHA,SEEMA CARRION JR; VAUGHN CHA,DAGOBERTO León; TYRELL CHA, HERNESTO Attending MD Review Statement Documenting Attending: AVA CHA,DAVID
--- NOTE | 2017-04-15 09:13 | PN- Hematology ---
Subjective Subjective: She feels well. She has no further epistaxis at the moment. She has no new bleeding. Review of Systems Constitutional: Denies: chills, fever. EENTM: Denies: epistaxis. Cardiovascular: Denies: chest pain. Respiratory: Denies: short of breath. Gastrointestinal: Denies: abdominal pain. Musculoskeletal: Denies: back pain. Neurological/Psychological: Denies: anxiety, confusion. Hematologic/Endocrine: Denies: bleeding. All Other Systems: Reviewed and Negative Objective Vital Signs and I&Os Vital Signs Date Time Temp Pulse Resp B/P B/P Pulse O2 O2 Flow FiO2 Mean Ox Delivery Rate 04/14 2253 97.9 67 18 130/52 96 Room Air 04/14 2156 66 164/60 04/14 1636 70 164/74 04/14 1603 97.9 66 18 150/74 96 04/14 1400 Room Air 04/14 1400 98.8 64 18 180/64 93 Room Air 04/14 1313 97.9 68 20 160/72 98 Room Air 04/14 1020 68 173/71 04/14 1020 68 173/71 Intake & Output 04/15 1600 04/15 0800 04/15 0000 04/14 1600 04/14 0800 04/14 0000 Intake Total 550 880 60 Output Total 200 500 200 Balance 350 380 -140 Intake, IV 400 400 Intake, Oral 150 480 60 Number 0 Bowel Movements Output, Urine 200 500 200 Patient 52.163 kg 52.163 kg Weight Weight Reported by Patient Reported by Patient Measurement Method Physical Exam: General Appearance: no apparent distress, alert, awake, comfortable, thin Ears, Nose, Throat: normal pharynx, significant amount dry blood in left nare with few area of fresh blood, right nare with less dry blood Respiratory: normal breath sounds, chest non-tender, no respiratory distress Cardiovascular: regular rate/rhythm Gastrointestinal: normal bowel sounds, soft, non-tender, no organomegaly Extremities: no edema Skin: ecchymosis Lymphatic: no anterior cervical jadiel Current Medications: Current Medications Sig/Maureen Start time Last Medication Dose Route Stop Time Status Admin Amlodipine Besylate 10 MG DAILY 04/14 1000 DC 04/14 PO 1020 Amoxicillin/ 500 MG Q12 04/14 1400 AC 04/15 Clavulanate Potassium PO 0655 Atorvastatin Calcium 10 MG DAILY 04/14 1000 AC 04/14 PO 1020 Hydralazine HCl 10 MG TID 04/14 2200 DC PO Hydralazine HCl 10 MG TID 04/14 1430 AC 04/14 PO 2156 Levothyroxine Sodium 0.075 MG DAILY AC 04/14 0700 AC 04/15 PO 0625 Lisinopril 40 MG DAILY 04/15 1000 AC PO Lisinopril 30 MG DAILY 04/14 1000 DC 04/14 PO 1020 Sertraline HCl 50 MG DAILY 04/14 1000 AC 04/14 PO 1020 Sodium Chloride 1,000 ML .Q20H 04/14 0100 AC 04/15 IV 0304 Results Last 24 Hours of Lab Results: Laboratory Tests 04/15 0630 Chemistry Sodium (137 - 145 mmol/L) 138 Potassium (3.5 - 5.1 mmol/L) 3.7 Chloride (98 - 107 mmol/L) 104 Carbon Dioxide (22 - 30 mmol/L) 26 Anion Gap (5 - 16) 9 BUN (7 - 17 mg/dL) 34 H Creatinine (0.5 - 1.0 mg/dL) 1.5 H Estimated GFR (>60 ml/min) 33 L BUN/Creatinine Ratio (7 - 25 %) 22.7 Hematology CBC w Diff NO MAN DIFF REQ WBC (4.8 - 10.8 /CUMM) 3.1 L RBC (4.20 - 5.40 /CUMM) 2.69 L Hgb (12.0 - 16.0 G/DL) 9.4 L Hct (37 - 47 %) 27.5 L MCV (81.0 - 99.0 FL) 102.4 H MCH (27.0 - 31.0 PG) 34.9 H RDW (11.5 - 14.5 %) 14.2 Plt Count (130 - 400 /CUMM) 90 L MPV (7.4 - 10.4 FL) 11.3 H Gran % (42.2 - 75.2 %) 77.2 H Lymphocytes % (20.5 - 51.1 %) 19.1 L Monocytes % (1.7 - 9.3 %) 2.7 Eosinophils % (0 - 5 %) 0.6 Basophils % (0.0 - 2.0 %) 0.4 Absolute Granulocytes (1.4 - 6.5 /CUMM) 2.4 Absolute Lymphocytes (1.2 - 3.4 /CUMM) 0.6 L Absolute Monocytes (0.10 - 0.60 /CUMM) 0.1 L Absolute Eosinophils (0.0 - 0.7 /CUMM) 0 Absolute Basophils (0.0 - 0.2 /CUMM) 0 PUBS MCHC (33.0 - 37.0 G/DL) 34.1 Assessment/Plan Assessment/Recommendations: Ms. 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 Her hemoglobin is stable today. WBC is slightly lower along with her platelet counts. Epistaxis is stable. ENT to see her today. Recommendations: 1. ENT evaluation 2. Monitor CBC 3. Can try platelet transfusion to decrease aspirin effects 4. If perisistent bleeding, may trial tranexamic acid (Amicar) solution applied to nares 5. Follow up at outpatient as scheduled (around 05/19) Please call [phone] with any questions or concerns. Problem List: 1. MDS (myelodysplastic syndrome) 2. Hypertensive urgency 3. Epistaxis 4. Thrombocytopenia 5. Anemia
[2017-04-15 16:21] VITALS: BP 118/66
[2017-04-15 16:26] VITALS: BP 118/66
--- NOTE | 2017-04-15 17:03 | PN- Cardiology ---
Subjective Subjective: No complaints. Denies any further epistaxis. Denies any chest discomfort, palpitations, shortness of breath, etc. Objective Vital Signs and I&Os Vital Signs Date Time Temp Pulse Resp B/P B/P Pulse O2 O2 Flow FiO2 Mean Ox Delivery Rate 04/15 1626 97.2 73 20 118/66 96 Room Air 04/15 1621 73 118/66 04/15 1616 118/66 04/15 1610 Room Air 04/15 0945 144/70 04/15 0945 144/70 04/15 0800 98.0 67 20 136/60 96 Room Air 04/14 2253 97.9 67 18 130/52 96 Room Air 04/14 2156 66 164/60 Intake & Output 04/15 1600 04/15 0804/15 0000 04/14 1600 04/14 0000 Intake Total 400 550 880 60 Output Total 200 500 200 Balance 400 350 380 -140 Intake, IV 400 400 400 Intake, Oral 150 480 60 Number 0 Bowel Movements Output, Urine 200 500 200 Patient 115 lb 115 lb 115 lb Weight Weight Reported by Patient Reported by Patient Measurement Method Physical Exam: Well-developed, well-nourished, pale appearing elderly female no acute distress. Vital signs: See above. Neck: No JVD, no bruits. Lungs: Clear to auscultation bilaterally. Heart: S1, S2 with no murmur, gallop, or rub appreciated. Extremities: No edema. Assessment/Plan Assessment/Plan [id number] w/ HTN, CKD, HLD, hypothyroidism, MDS, and medical noncompliance who presented to the ED with a complaint of persistent epistaxis and poorly controlled HTN. She also appears to have been on amiodarone 100 mg daily as an outpatient and there is mention made of "arrhythmia" in her past medical history, however, it is not clear whether she is on amiodarone for a history of paroxysmal atrial fibrillation or for some type of ventricular arrhythmia. She is presently on an antihypertensive regimen of hydralazine 10 mg 3 times daily and lisinopril 40 mg daily. She had been on amlodipine 10 mg daily and this was not tolerated. Recommendations: * Continue on telemetry, given history of suspected paroxysmal atrial fibrillation. * Continue present and hypertensive regimen and titrate up hydralazine to 25 mg 3 times daily if needed. * Schedule echocardiogram to assess for left ventricular hypertrophy, systolic/ diastolic left ventricular function, etc. * Mechanical DVT prophylaxis. Continue telemetry? Yes
[2017-04-15 23:25] VITALS: BP 130/70
[2017-04-16] MEDS ORDERED: AUGMENTIN 500-1 EACH PO (06:09)
[2017-04-16] MEDS ORDERED: LYSTEDA650 M1 PO (06:09)
--- NOTE | 2017-04-16 06:18 | PN- Housestaff ---
CONNORRIVASNIKKIEMAYE 04/16/17 0615: Subjective Follow-up For: epistaxis, hypertensive urgency Review of Systems Constitutional: Reports: see HPI. Objective Last 24 Hrs of Vital Signs/I&O Vital Signs Date Time Temp Pulse Resp B/P B/P Pulse O2 O2 Flow FiO2 Mean Ox Delivery Rate 04/16 0000 Room Air 04/15 2325 99.2 67 20 130/70 95 Room Air 04/15 2110 70 182/66 04/15 1626 97.2 73 20 118/66 96 Room Air 04/15 1621 73 118/66 04/15 1616 118/66 04/15 1610 Room Air 04/15 0945 144/70 04/15 0945 144/70 04/15 0800 98.0 67 20 136/60 96 Room Air Intake & Output 04/16 0800 04/16 0000 04/15 1600 Intake Total 880 400 Output Total 450 Balance 430 400 Intake, IV 400 400 Intake, Oral 480 Output, Urine 450 Patient 52.163 kg Weight Physical Exam General Appearance: Alert, Oriented X3, Cooperative, No Acute Distress HEENT: Atraumatic, PERRLA, EOMI Neck: Supple, No JVD, No thryomegaly Lymphatic: no lad Cardiovascular: Normal S1, Normal S2, No Murmurs Lungs: Clear to Auscultation, Normal Air Movement Abdomen: Normal Bowel Sounds, Soft, No Tenderness Current Medications: Current Medications Sig/Maureen Start time Last Medication Dose Route Stop Time Status Admin Amoxicillin/ 500 MG Q12 04/14 1400 AC 04/15 Clavulanate Potassium PO 2110 Atorvastatin Calcium 10 MG DAILY 04/14 1000 AC 04/15 PO 0945 Dorzolamide HCl 1 GTT BID 04/15 2200 DC OPH Dorzolamide HCl 1 GTT BID 04/15 1200 AC 04/15 OPH 1617 Dorzolamide HCl 1 GTT BID 04/15 1015 CAN OPH Hydralazine HCl 10 MG TID 04/14 1430 AC 04/15 PO 2110 Levothyroxine Sodium 0.075 MG DAILY AC 04/14 0700 AC 04/15 PO 0625 Lisinopril 40 MG DAILY 04/15 1000 AC 04/15 PO 0945 Patient Medication 1 ED .STK-MED ONE 04/15 1342 DC Teaching ED 04/15 1343 Sertraline HCl 50 MG DAILY 05/24 1000 AC 04/15 PO 0945 Sodium Chloride 1,000 ML .Q20H 04/14 0100 AC 04/15 IV 1617 Timolol Maleate 1 GTT BID 04/15 1015 AC 04/15 OPH 1617 Last 24 Hrs of Lab/Wally Results Last 24 Hrs of Labs/Mics: Laboratory Tests 04/15/17 0630: Anion Gap 9, Estimated GFR 33 L, BUN/Creatinine Ratio 22.7, CBC w Diff NO MAN DIFF REQ, RBC 2.69 L, MCV 102.4 H, MCH 34.9 H, RDW 14.2, MPV 11.3 H, Gran % 77.2 H, Lymphocytes % 19.1 L, Monocytes % 2.7, Eosinophils % 0.6, Basophils % 0.4, Absolute Granulocytes 2.4, Absolute Lymphocytes 0.6 L, Absolute Monocytes 0.1 L, Absolute Eosinophils 0, Absolute Basophils 0, PUBS MCHC 34.1 Assessment/Plan Assessment: This is a 86-year-old female nonsmoker, no alcohol, no illcit drug use with past medical history of hypertension, dyslipidemia,hypothyroidism, basal cell carcinoma s/p resection,previous h/o hip fracture in 2012 and 2013,previous cataract and thyroid surgery,glaucoma, depression last seen in February 2014 for left intertrochanteric hip fracture seen at the emergency department on 2016, 04/12/2017 and 04/13/2017 with chief complaint of epistaxis, noted to have high blood pressure on all occassions, admitted on april 13 to telemetry for epistaxis, hypertensive urgency and thrombocytopenia. Today she is doing better, hadnt had any episodes of bleeding after being admitted, dry blood and clot present mainly in the left nare, her BP is better controlled, hematology has seen her and recommend OP follow up, she has OP appointment with them in last week of april, with plan to consider trial of tranexamic acid (Amicar) liquid applied to nares, if she has any further bleeding. Problem list along with assessment and plan. #1 Epistaxis * No more episodes of bleeding after admission. * Patient has h/o MDS ( no Bx done) , and that is the reason of low platelets, however the epistaxis seems to be 2/2 to low platelet in combination with high BP * BP now better controlled. * If she bleeds again, consider trial of tranexamic acid (Amicar) liquid applied to nares. * For now stable, with nasal packing and drain present. * ENT was consulted but hsn't seen patient yet, but if she bleeds again, plan to call them stat. #2 hypertensvie urgeny * Cardiology consult appreciated. * BP under control * systolic : 130 ( last night) * diastolic : 52 ( last night) * will ct ot monitor BP. * ct hydralazine 10 mg tid, if BP still high will increase to 25 TID * Intially patient was started on amlodipine,however she didnto tolerate it well so was d/c'd. * lisinopril 40 mg also increased from 30, to start today in am. * Echo pending for today as per cardio. #3 Thrombocytopenia * Hematology consult appreciated. * Patient was diagnosed with MDS in 2014, however no bone BX was done. * Patient to follow up with hematology as OP * has appt in last week of april. * Ct to monitor platelets. * am plt count pending. * DVT px with ALPS. #4 History of atrial fibrillation. * The patient in normal sinus rhythm, EKG showed normal sinus rhythm with rate of 64, MN of 260, first-degree A-V block, left axis deviation. * ct amiodarone at home dosage. #5 Diarrhea * Patient reports having diarrhea on and off since last 3-4 days prior to presentation, currently not having any episodes of diarrhea. #6 history of anxiety/depression. * Continue sertraline at home dosage. #7 history of hypothyroidism. * Continue levothyroxine 75 g daily. #8 chronic kidney disease. * Patient's creatinine is at baseline. * Continue to monitor. #9 Gait instabilty * pt saw patient 04/14/17, assist of one,STR placement today, will touch base with case mx about bed availability * CT fall precautions. #10 Anxiety,depression, white coat hypertension * ct sertralin * valium prn if very anxious, helps at night. Pt is DNR/DNI. heart healthy diet mild, mod severe PP DVT px : alps 2/2 epistaxis Problem List: 1. MDS (myelodysplastic syndrome) 2. Hypertensive urgency 3. Risk for falls Pain Ratin Pain Location: none Pain Goal: Remain pain free Pain Plan: current Tomorrow's Labs & Rationales: cbc, bep for monitor platelets and CKD Discharge Plan Discharge Disposition: STR/NH Stable for Discharge? Yes Anticipated Discharge (Day): today If Discharged Today/In 24 Hrs: CMR done DAVID ESCALANTE MD 04/16/17 1026: Attending MD Review Statement Attending Statement Attending MD Statement: examined this patient, discuss w/resident/PA/[employer], agreed w/resident/PA/[employer], reviewed EMR data (avail), discussed with nursing, discussed with case mgmt, amended to note Attending Assessment/Plan: Patient seen and examined, feeling overall better. No more nose bleeds. BP was high this am bbut noted that pateint was still on IVFs. Vital Signs Date Time Temp Pulse Resp B/P B/P Pulse O2 O2 Flow FiO2 Mean Ox Delivery Rate 04/16 0856 97.9 68 172/88 04/16 0855 68 172/88 04/16 0842 97.9 68 20 172/88 96 Room Air 04/16 0000 Room Air 04/15 2325 99.2 67 20 130/70 95 Room Air 04/15 2110 70 182/66 04/15 1626 97.2 73 20 118/66 96 Room Air 04/15 1621 73 118/66 04/15 1616 118/66 04/15 1610 Room Air on exam; aox3, nad. heent; + nasal packing. cv; s1, s2, rrr resp; clear abd; soft,nt, bs+ ext; no edema Laboratory Tests 04/16 0625 Chemistry Sodium (137 - 145 mmol/L) 137 Potassium (3.5 - 5.1 mmol/L) 3.5 Chloride (98 - 107 mmol/L) 103 Carbon Dioxide (22 - 30 mmol/L) 25 Anion Gap (5 - 16) 9 BUN (7 - 17 mg/dL) 25 H Creatinine (0.5 - 1.0 mg/dL) 1.4 H Estimated GFR (>60 ml/min) 36 L BUN/Creatinine Ratio (7 - 25 %) 17.9 Hematology CBC w Diff NO MAN DIFF REQ WBC (4.8 - 10.8 /CUMM) 6.1 RBC (4.20 - 5.40 /CUMM) 2.51 L Hgb (12.0 - 16.0 G/DL) 8.8 L Hct (37 - 47 %) 26.0 L MCV (81.0 - 99.0 FL) 103.3 H MCH (27.0 - 31.0 PG) 35.0 H RDW (11.5 - 14.5 %) 14.5 Plt Count (130 - 400 /CUMM) 98 L MPV (7.4 - 10.4 FL) 11.6 H Gran % (42.2 - 75.2 %) 90.1 H Lymphocytes % (20.5 - 51.1 %) 7.5 L Monocytes % (1.7 - 9.3 %) 1.2 L Eosinophils % (0 - 5 %) 0.9 Basophils % (0.0 - 2.0 %) 0.3 Absolute Granulocytes (1.4 - 6.5 /CUMM) 5.5 Absolute Lymphocytes (1.2 - 3.4 /CUMM) 0.5 L Absolute Monocytes (0.10 - 0.60 /CUMM) 0.1 L Absolute Eosinophils (0.0 - 0.7 /CUMM) 0.1 Absolute Basophils (0.0 - 0.2 /CUMM) 0 PUBS MCHC (33.0 - 37.0 G/DL) 33.9 A/P; 86 y/o F with pmh sig for HTN, hypothyroidism, basal cell carcinoma, CKD stage 3B, compression fracture, Cdiff colitis , history of A. fib in the past, who was admitted with hypertensive urgency, epistaxis. Patient received nasal tempon on Wednesday prior to this admission and she was given a dose of Augmentin. No further nose bleed. BP was slightly high this am. Will recheck that in the afternoon after she received 10 mg Hydralazine as well as lisinopril. Fluids have been stopped. She has a bed available at rehab today. Her daugter has already scheduled an appt for her with ENT as outpatient. She will be continued on abx till she has nasal packing. Thrombocytopenia: stable. Dispo: Will be discharged to [facility] today.
[2017-04-16 08:06] LABS: ABSOLUTE BASOPHIL COUNT 0 /CUMM (0.0-0.2); ABSOLUTE EOSINOPHIL COUNT 0.1 /CUMM (0.0-0.7); ABSOLUTE GRANULOCYTE CT 5.5 /CUMM (1.4-6.5); ABSOLUTE LYMPH COUNT 0.5 /CUMM (1.2-3.4); ABSOLUTE MONOCYTE COUNT 0.1 /CUMM (0.10-0.60); BASOPHIL % 0.3 % (0.0-2.0); EOSINOPHIL % 0.9 % (0-5); GRANULOCYTE % 90.1 % (42.2-75.2); MEAN CORPUSCULAR HGB CONC 33.9 G/DL (33.0-37.0); MEAN CORPUSCULAR VOLUME 103.3 FL (81.0-99.0); MEAN PLATELET VOLUME 11.6 FL (7.4-10.4); RBC DISTRIBUTION WIDTH 14.5 % (11.5-14.5); RED BLOOD CELL CT 2.51 /CUMM (4.20-5.40)
--- NOTE | 2017-04-16 08:19 | ECHOCARDIOGRAM REPORT ---
BEKAH GREENBERG Age: 86 : 1930 Gender: F Exam Date: 04/15/2017 10:32 Exam Location: [address] Ht (in): 67 Wt (lb): 115 BSA: 1.56 BP: 130 / 52 Ordering Physician: BLACK ROACH MD Referring Physician: BLACK ROACH MD Technologist: Florentino Miller [facility] Room Number: 176-1 Indications: Hypertension Rhythm: Sinus Technical Quality: good FINDINGS Left Ventricle Normal left ventricular size, wall thickness and systolic function with no obvious regional wall motion abnormalities. Diastolic filling pattern is consistent with impaired LV relaxation. The ejection fraction is visually estimated at 60%. Right Ventricle The right ventricle is normal in size and function. Right Atrium The right atrium is normal in size. Left Atrium The left atrium is normal in size. The interatrial septum is intact. Mitral Valve The mitral valve is normal in structure and function. There is trace mitral regurgitation. Aortic Valve Structurally normal aortic valve without significant sclerosis or stenosis. There is trace aortic regurgitation. Tricuspid Valve The tricuspid valve is normal in structure and function. There is no tricuspid regurgitation. Pulmonic Valve Structurally normal pulmonic valve. There is no pulmonic regurgitation. Pericardium Normal pericardium without effusion. No pleural effusion. Great Vessels Normal aortic root dimension. The aortic arch and great vessels are well seen and are normal. CONCLUSIONS 1. Normal EF of 60% with impaired LV relaxation. 2. Trace mitral regurgitation. 3. Trace tricuspid regurgitation. Bradley Sanon M.D. (Electronically Signed) Final Date: 16 Apr 2017 08:18 MEASUREMENTS (Male / Female) Normal Values 2D ECHO LV Diastolic Diameter PLAX 3.9 cm 4.2 - 5.9 / 3.9 - 5.3 cm LV Systolic Diameter PLAX 2.4 cm 2.1 - 4.0 cm LV Fractional Shortening PLAX 38.5 % 25 - 46 % LV Ejection Fraction 2D Teich 69.4 % IVS Diastolic Thickness 1.0 cm LVPW Diastolic Thickness 0.9 cm LV Relative Wall Thickness 0.5 RV Internal Dim ED PLAX 2.1 cm 1.9 - 3.8 cm LVOT Diameter 1.8 cm Aortic Root Diameter 2.9 cm LA Systolic Diameter LX 2.7 cm 3.0 - 4.0 / 2.7 - 3.8 cm Ascending Aorta Diameter 3.1 cm DOPPLER AV Peak Velocity 120.0 cm/s AV Peak Gradient 5.8 mmHg AV Mean Velocity 79.5 cm/s AV Mean Gradient 3.0 mmHg AV Velocity Time Integral 24.0 cm LVOT Peak Velocity 82.0 cm/s LVOT Peak Gradient 2.7 mmHg LVOT Mean Velocity 54.2 cm/s LVOT Mean Gradient 1.0 mmHg LVOT Velocity Time Integral 20.9 cm LVOT Stroke Volume 53.2 cm AV Area Cont Eq vti 2.2 cm AV Area Cont Eq pk 1.7 cm MV Peak Velocity 106.0 cm/s MV Peak Gradient 4.5 mmHg MV Mean Velocity 62.6 cm/s MV Mean Gradient 2.0 mmHg Mitral E Point Velocity 66.6 cm/s Mitral A Point Velocity 104.0 cm/s Mitral E to A Ratio 0.6 MV PHT Velocity 87.6 cm/s MV Deceleration Avery 206.0 cm/s MV Pressure Half Time 127.6 ms MV Area PHT 1.7 cm MV Deceleration Time 229.0 ms MR Peak Velocity 598.0 cm/s MR Peak Gradient 143.0 mmHg PV Peak Velocity 99.3 cm/s PV Peak Gradient 3.9 mmHg PV Mean Velocity 71.3 cm/s PV Mean Gradient 2.0 mmHg PV Velocity Time Integral 20.9 cm LV E' Lateral Velocity 5.3 cm/s Mitral E to LV E' Lateral Ratio 12.7 LV E' Septal Velocity 5.5 cm/s Mitral E to LV E' Septal Ratio 12.2
[2017-04-16 08:42] VITALS: BP 172/88
[2017-04-16 09:03] LABS: PLATELET COUNT 98 /CUMM (130-400); WHITE BLOOD CELL COUNT 6.1 /CUMM (4.8-10.8)
[2017-04-16] MEDS ORDERED: HYDRALAZINE HCL25 M1 PO (09:11)
[2017-04-16] MEDS ORDERED: AUGMENTIN 875-1 EACH PO (09:16)
--- NOTE | 2017-04-16 09:44 | PN- Cardiology ---
Subjective Subjective: No complaints. Denies any chest discomfort, palpitations, shortness of breath, etc. No further epistaxis. Blood pressure again running on the high side. Present antihypertensive regimen includes: lisinopril 40 mg daily and hydralazine 25 mg 3 times daily. Maintaining sinus rhythm on telemetry with a heart rate in the 60-70 bpm range. Objective Vital Signs and I&Os Vital Signs Date Time Temp Pulse Resp B/P B/P Pulse O2 O2 Flow FiO2 Mean Ox Delivery Rate 04/16 0856 97.9 68 172/88 04/16 0855 68 172/88 04/16 0842 97.9 68 20 172/88 96 Room Air 04/16 0000 Room Air 04/15 2325 99.2 67 20 130/70 95 Room Air 04/15 2110 70 182/66 04/15 1626 97.2 73 20 118/66 96 Room Air 04/15 1621 73 118/66 04/15 1616 118/66 04/15 1610 Room Air 04/15 0945 144/70 04/15 0945 144/70 Intake & Output 04/16 1600 04/16 0800 04/16 0000 04/15 1600 04/15 0800 04/15 0000 Intake Total 520 880 400 550 880 Output Total 450 450 200 500 Balance 70 430 400 350 380 Intake, IV 400 400 400 400 400 Intake, Oral 120 480 150 480 Number 0 0 Bowel Movements Output, Urine 450 450 200 500 Patient 115 lb Weight Physical Exam: Well-developed, well-nourished, pale appearing elderly female no acute distress. Vital signs: See above. Neck: No JVD, no bruits. Lungs: Clear to auscultation bilaterally. Heart: S1, S2 with no murmur, gallop, or rub appreciated. Extremities: No edema. Current Medications: Current Medications Sig/Maureen Start time Last Medication Dose Route Stop Time Status Admin Amoxicillin/ 500 MG Q12 04/14 1400 AC 04/16 Clavulanate Potassium PO 0857 Atorvastatin Calcium 10 MG DAILY 04/14 1000 AC 04/16 PO 0856 Dorzolamide HCl 1 GTT BID 04/15 2200 DC OPH Dorzolamide HCl 1 GTT BID 04/15 1200 AC 04/16 OPH 0857 Dorzolamide HCl 1 GTT BID 04/15 1015 CAN OPH Hydralazine HCl 25 MG TID 04/16 1000 AC PO Hydralazine HCl 15 MG ONCE ONE 04/16 0915 CAN IV 04/16 0916 Hydralazine HCl 10 MG TID 04/14 1430 DC 04/16 PO 0855 Levothyroxine Sodium 0.075 MG DAILY AC 04/14 0700 AC 04/16 PO 0630 Lisinopril 40 MG DAILY 04/15 1000 AC 04/16 PO 0856 Patient Medication 1 ED .STK-MED ONE 04/15 1342 DC Teaching ED 04/15 1343 Sertraline HCl 50 MG DAILY 04/14 1000 AC 04/16 PO 0856 Sodium Chloride 1,000 ML .Q20H 04/14 0100 AC 04/15 IV 1617 Timolol Maleate 1 GTT BID 04/15 1015 AC 04/16 OPH 0855 Results Last 48 Hrs of Labs/Mics: Laboratory Tests 04/16/17 0625: Anion Gap 9, Estimated GFR 36 L, BUN/Creatinine Ratio 17.9, CBC w Diff NO MAN DIFF REQ, RBC 2.51 L, MCV 103.3 H, MCH 35.0 H, RDW 14.5, MPV 11.6 H, Gran % 90.1 H, Lymphocytes % 7.5 L, Monocytes % 1.2 L, Eosinophils % 0.9, Basophils % 0.3, Absolute Granulocytes 5.5, Absolute Lymphocytes 0.5 L, Absolute Monocytes 0.1 L, Absolute Eosinophils 0.1, Absolute Basophils 0, PUBS MCHC 33.9 04/15/17 0630: Anion Gap 9, Estimated GFR 33 L, BUN/Creatinine Ratio 22.7, CBC w Diff NO MAN DIFF REQ, RBC 2.69 L, MCV 102.4 H, MCH 34.9 H, RDW 14.2, MPV 11.3 H, Gran % 77.2 H, Lymphocytes % 19.1 L, Monocytes % 2.7, Eosinophils % 0.6, Basophils % 0.4, Absolute Granulocytes 2.4, Absolute Lymphocytes 0.6 L, Absolute Monocytes 0.1 L, Absolute Eosinophils 0, Absolute Basophils 0, PUBS MCHC 34.1 Recent Imaging Studies: Echocardiogram (04/15/2017): Normal left ventricular size, wall thickness and systolic function with no obvious regional wall motion abnormalities. Diastolic filling pattern is consistent with impaired LV relaxation. The ejection fraction is visually estimated at 60%. The right ventricle is normal in size and function. Right atrium is normal in size. The left atrium is normal in size. The interatrial septum is intact. The mitral valve is normal in structure and function. There is trace mitral regurgitation. Structurally normal aortic valve without significant sclerosis or stenosis. There is trace aortic regurgitation. The tricuspid valve is normal in structure and function. There is no tricuspid regurgitation. Structurally normal pulmonic valve. There is no pulmonic regurgitation. Normal pericardium without effusion. No pleural effusion. Normal aortic root dimension. The aortic arch and great vessels are well seen and are normal. CONCLUSIONS 1. Normal EF of 60% with impaired LV relaxation. 2. Trace mitral regurgitation. 3. Trace tricuspid regurgitation. Assessment/Plan Assessment/Plan [id number] w/ HTN, CKD, HLD, hypothyroidism, MDS, and medical noncompliance who presented to the ED with a complaint of persistent epistaxis and poorly controlled HTN. She also appears to have been on amiodarone 100 mg daily as an outpatient and there is mention made of "arrhythmia" in her past medical history, however, it is not clear whether she is on amiodarone for a history of paroxysmal atrial fibrillation or for some type of ventricular arrhythmia. Transaminases within an acceptable range, however, TSH is elevated and should be followed up given her chronic amiodarone therapy. A magnesium level should be checked and her potassium should be repleted. Remains anemic which is likely multifactorial i.e., epistaxis, CKD, etc. She is presently on an antihypertensive regimen of hydralazine 10 mg 3 times daily and lisinopril 40 mg daily. She had been on amlodipine 10 mg daily and this was not tolerated. Recommendations: * Continue on telemetry, until discharge, given history of suspected paroxysmal atrial fibrillation. * Replete potassium and check magnesium. * Alert attending physician to elevated TSH and follow-up, given amiodarone therapy. * Presently on lisinopril 40 mg daily and hydralazine 25 mg 3 times daily if needed. Needs close outpatient follow-up. * Evaluate anemia and consider erythropoietin stimulating agents, given CKD. * DVT prophylaxis. Continue telemetry? Yes
--- NOTE | 2017-04-16 11:06 | PN- Hematology ---
Subjective Subjective: She reports no new symptoms. She has no new bleeding. She is off aspirin. Review of Systems: Constitutional: Denies: chills, fever. EENTM: Denies: epistaxis. Cardiovascular: Denies: chest pain. Respiratory: Denies: short of breath. Gastrointestinal: Denies: abdominal pain. Hematologic/Endocrine: Denies: bleeding. All Other Systems: Reviewed and Negative Objective Vital Signs and I&Os Vital Signs Date Time Temp Pulse Resp B/P B/P Pulse O2 O2 Flow FiO2 Mean Ox Delivery Rate 04/16 0856 97.9 68 172/88 04/16 0855 68 172/88 04/16 0842 97.9 68 20 172/88 96 Room Air 04/16 0000 Room Air 04/15 2325 99.2 67 20 130/70 95 Room Air 04/15 2110 70 182/66 04/15 1626 97.2 73 20 118/66 96 Room Air 04/15 1621 73 118/66 04/15 1616 118/66 04/15 1610 Room Air Intake & Output 04/16 1600 04/16 0804/16 0000 04/15 1600 04/15 0800 04/15 0000 Intake Total 520 880 400 550 880 Output Total 450 450 200 500 Balance 70 430 400 350 380 Intake, IV 400 400 400 400 400 Intake, Oral 120 480 150 480 Number 0 0 Bowel Movements Output, Urine 450 450 200 500 Patient 52.163 kg Weight Physical Exam: General Appearance: no apparent distress, alert, awake, comfortable, thin Ears, Nose, Throat: normal pharynx, significant amount dry blood in left nare with few area of fresh blood, right nare with less dry blood Respiratory: normal breath sounds, chest non-tender, no respiratory distress Cardiovascular: regular rate/rhythm Gastrointestinal: normal bowel sounds, soft, non-tender, no organomegaly Extremities: no edema Skin: ecchymosis Lymphatic: no anterior cervical jadiel Current Medications: Current Medications Sig/Maureen Start time Last Medication Dose Route Stop Time Status Admin Amoxicillin/ 500 MG Q12 04/14 1400 AC 04/16 Clavulanate Potassium PO 0857 Atorvastatin Calcium 10 MG DAILY 04/14 1000 AC 04/16 PO 0856 Dorzolamide HCl 1 GTT BID 04/15 2200 DC OPH Dorzolamide HCl 1 GTT BID 04/15 1200 AC 04/16 OPH 0857 Hydralazine HCl 25 MG TID 04/16 1000 AC PO Hydralazine HCl 15 MG ONCE ONE 04/16 0915 CAN IV 04/16 0916 Hydralazine HCl 10 MG TID 04/14 1430 DC 04/16 PO 0855 Levothyroxine Sodium 0.075 MG DAILY AC 04/14 0700 AC 04/16 PO 0630 Lisinopril 40 MG DAILY 04/15 1000 AC 04/16 PO 0856 Patient Medication 1 ED .STK-MED ONE 04/15 1342 DC Teaching ED 04/15 1343 Sertraline HCl 50 MG DAILY 04/14 1000 AC 04/16 PO 0856 Sodium Chloride 1,000 ML .Q20H 04/14 0100 AC 04/15 IV 1617 Timolol Maleate 1 GTT BID 04/15 1015 AC 04/16 OPH 0855 Results Last 24 Hours of Lab Results: Laboratory Tests 04/16 625 Chemistry Sodium (137 - 145 mmol/L) 137 Potassium (3.5 - 5.1 mmol/L) 3.5 Chloride (98 - 107 mmol/L) 103 Carbon Dioxide (22 - 30 mmol/L) 25 Anion Gap (5 - 16) 9 BUN (7 - 17 mg/dL) 25 H Creatinine (0.5 - 1.0 mg/dL) 1.4 H Estimated GFR (>60 ml/min) 36 L BUN/Creatinine Ratio (7 - 25 %) 17.9 Hematology CBC w Diff NO MAN DIFF REQ WBC (4.8 - 10.8 /CUMM) 6.1 RBC (4.20 - 5.40 /CUMM) 2.51 L Hgb (12.0 - 16.0 G/DL) 8.8 L Hct (37 - 47 %) 26.0 L MCV (81.0 - 99.0 FL) 103.3 H MCH (27.0 - 31.0 PG) 35.0 H RDW (11.5 - 14.5 %) 14.5 Plt Count (130 - 400 /CUMM) 98 L MPV (7.4 - 10.4 FL) 11.6 H Gran % (42.2 - 75.2 %) 90.1 H Lymphocytes % (20.5 - 51.1 %) 7.5 L Monocytes % (1.7 - 9.3 %) 1.2 L Eosinophils % (0 - 5 %) 0.9 Basophils % (0.0 - 2.0 %) 0.3 Absolute Granulocytes (1.4 - 6.5 /CUMM) 5.5 Absolute Lymphocytes (1.2 - 3.4 /CUMM) 0.5 L Absolute Monocytes (0.10 - 0.60 /CUMM) 0.1 L Absolute Eosinophils (0.0 - 0.7 /CUMM) 0.1 Absolute Basophils (0.0 - 0.2 /CUMM) 0 PUBS MCHC (33.0 - 37.0 G/DL) 33.9 Assessment/Plan Assessment/Recommendations: Ms. 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 Her hemoglobin is a little lower today. This may be stabilizing from bleeding previously and fluid. Platelet count is improved. ENT will see her as outpatient. Hemoglobin baseline is around 10-11. She will follow up as outpatient to determine if she need further therapy for her presumed MDS. Recommendations: 1. ENT evaluation as outpatient 2. Monitor CBC 3. Follow up at outpatient as scheduled (05/19/2017 at 11AM) Please call [phone] with any questions or concerns. Problem List: 1. MDS (myelodysplastic syndrome) 2. Hypertensive urgency 3. Anemia 4. Thrombocytopenia
[2017-04-16 12:15] VITALS: BP 180/78; BP 190/65
[2017-04-16 16:00] VITALS: BP 150/68
[2017-04-16 16:12] VITALS: BP 150/68
[2017-04-16 17:00] VITALS: BP 190/78
[2017-04-16 17:33] VITALS: BP 150/56
--- NOTE | 2017-04-16 17:33 | NUR ---
PATIENT BECAME DIZZY AND DIAPHARETIC WHILE HAVING A BM. PATIENT TRANSFER BACK TO BED. BP 190/78, HR 65. PATIENT STOOL BLACK HEMOCULT DONE AND WAS POSITIVE. DR MARLEY TORRES. BP RECHECKED AT 1730 AND WAS 150/56. RESULT DOCUMENTED IN IPOC.
--- NOTE | 2017-04-16 18:31 | NUR ---
PATIENT SEEN AND EVALUATED BY DR ROACH. STABLE FOR DISCHARGE TO [facility]. FAMILY WILL TRANSPORT PATIENT.
== END 2017-04-16 18:40 | DRG 305 ==
LOC: ERH 17:06 → ERHI 22:17 → 1NO 22:17 → ENRESERV 04-14 00:15 → ERHI 04-14 08:36 → ENRESERV 04-14 12:51 → ENTRNSPT 04-14 13:19 → EDTRNSPTTYP 04-14 13:37 → EDTRNSPTSTS 04-14 13:37 → 1NO 04-14 14:04 → CMPTRNSPT 04-14 14:25 → 1NO 04-15 09:14 → ENPENDDIS 04-16 13:16 → 1NO 04-16 18:40
PROVIDERS: Emergency Medicine; Internal Medicine; ADMIT Student in an Organized Health Care Education/Training Program
DX: I16.0 Hypertensive urgency (principal); N17.9 Acute kidney failure, unspecified; D69.6 Thrombocytopenia, unspecified; D62 Acute posthemorrhagic anemia; I48.0 Paroxysmal atrial fibrillation; N18.3 Chronic kidney disease, stage 3 (moderate); E03.9 Hypothyroidism, unspecified; R04.0 Epistaxis; I12.9 Hypertensive chronic kidney disease with stage 1 through stage 4 chronic kidney disease, or unspecified chronic kidney disease; R26.89 Other abnormalities of gait and mobility; Z66 Do not resuscitate; D46.9 Myelodysplastic syndrome, unspecified; Z79.01 Long term (current) use of anticoagulants; F32.9 Major depressive disorder, single episode, unspecified; F41.9 Anxiety disorder, unspecified; E78.5 Hyperlipidemia, unspecified
CPT/HCPCS: 1NP; ERO; 36415; 81001; 82436; 93005; 93010; 93306; 97110-GO; 97116-GO; 97161-GP; 97530-GO; J3490

== ENCOUNTER 2018-03-28 18:32 | Emergency (ER) | payer OTHER, MEDICARE ==
[~2018-03-28] VITALS: Ht 170.2 cm; Wt 52.2 kg
[~2018-03-28 18:32] MED LIST changes: +AUGMENTIN 875-1 EACH PO; +HYDRALAZINE HCL10 M1 PO; +HYDRALAZINE HCL25 M1 PO; +LISINOPRIL20 M1 PO; +LYSTEDA650 M1 PO
--- NOTE | 2018-03-28 19:41 | RADIOLOGY REPORT ---
EXAMINATION: XR LUMBOSACRAL SPINE CLINICAL INFORMATION: Evaluate for lumbar or sacral fracture with acute on chronic low back pain. COMPARISON: Lumbar spine MRI 07/12/2014. TECHNIQUE: 4 views of the lumbosacral spine were obtained. FINDINGS: 5 nonrib-bearing lumbar-type vertebral bodies. The frontal view is very limited by gaseous distention of bowel. On the lateral view there are compression deformities at every level of the lumbar spine as well as at the T12 level that are similar to the previous MRI. Compression fractures at T10 and T11 are not present on the prior study and are age-indeterminate. Nondiagnostic assessment of the sacrum secondary to overlying bowel gas. There is multilevel hypertrophic facet arthropathy. Abdominal aortic atherosclerotic calcification. Surgical screws within the proximal femurs bilaterally. Multiple calcifications project over the left pelvis. IMPRESSION: - Technically limited lumbar spine radiographs. Age-indeterminate compression fractures at T10 and T11 that are not present on the prior exam. Compression deformities throughout the entire lumbar spine and at T12 appear similar to the 07/12/2014 lumbar spine MRI. - Nondiagnostic assessment of the sacrum secondary to overlapping bowel gas. There is significant gaseous distention of bowel throughout the abdomen and pelvis.
--- NOTE | 2018-03-28 20:40 | ED NECK/BACK PAIN COMPLAINT ---
History of Present Illness General Chief Complaint: Low Back Pain/Injury Stated Complaint: BACK PAIN Source: patient, family, old records Exam Limitations: no limitations Vital Signs & Intake/Output Vital Signs & Intake/Output Vital Signs Date Time Temp Pulse Resp B/P B/P Pulse O2 O2 Flow FiO2 Mean Ox Delivery Rate 03/28 2104 98.2 70 16 224/78 99 Room Air Room Air 03/28 1844 97.6 75 18 194/86 95 Room Air Allergies Coded Allergies: No Known Allergies (04/11/17) Reconcile Medications Amiodarone HCl 100 MG TABLET 1 TAB PO DAILY HEART (Reported) Amoxicillin/Potassium Clav (Augmentin 875-125 Tablet) 875 MG-125 MG TABLET 1 TAB PO BID NASAL PACKING Aspirin (Ecotrin*) 81 MG TABLET.DR 1 TAB PO DAILY HEART/BLOOD (Reported) Atorvastatin Calcium 10 MG TABLET 1 TAB PO DAILY CHOLESTEROL (Reported) Dorzolamide HCl/Timolol Maleat (Dorzolamide-Timolol Eye Drops) 22.3 MG-6.8 MG/ML DROPS 1 GTT OPH BID BOTH EYES (Reported) Hydralazine HCl 25 MG TABLET 1 TAB PO TID HIGH BP Levothyroxine Sodium 75 MCG TABLET 1 TAB PO DAILY THYROID (Reported) Lidocaine (Lidoderm) 5 % ADH..PATCH 1 PAT TOP DAILY COMPRESSION FRACTURE may wear up to 12 hours Lisinopril 20 MG TABLET 2 TAB PO DAILY high bp Sertraline HCl 50 MG TABLET 1 TAB PO DAILY MENTAL HEALTH (Reported) Tranexamic Acid (Lysteda) 650 MG TABLET 1 TAB PO BID PRN NASAL BLEEDING during menses Tylenol With Codeine (Tylenol With Codeine #3 Tablet) 300 MG-30 MG TABLET 1 TAB PO Q8P PRN PAIN Triage Note: PT TO ER C/C LOW BACK PAIN X 2 WEEKS, WORSENING. HX OF MULTIPLE COMPRESSION FX. WAS PREVIOUSLY ON LYRICA. DENIES KNOWN INJURY OR TRAUMA. DENIES URINARY S/S. LNBM YESTERDAY. Triage Nurses Notes Reviewed? yes HPI: Patient has known compression fractures. Patient states that approximately 2 weeks ago her lower back began to hurt again. Patient used to take Lyrica for the pain and it helped but then she stopped it approximately urine and half ago when she was feeling better. Patient restarted delivered to a week ago but states that it has not been helping and it made her feel lightheaded. Patient has been taking Motrin or Tylenol for the pain but states that it did not help at all today. The pain earlier was 10 out of 10 however currently is down to a 6 out of 10. There is no radiation of pain. The pain is constant. Pain increases with movement and decreases when she is staying still. There is no, it's bladder. No difficulty walking. There is no weakness or numbness. There are no fevers or chills. Past History Travel History Traveled to [place] past 21 day No Medical History Any Pertinent Medical History? see below for history Neurological: NONE EENT: NONE Cardiovascular: hypertension, HYPERCHOLESTEROLEMIA ARRHYTHMIA Respiratory: NONE Gastrointestinal: NONE Hepatic: NONE Renal: NONE Musculoskeletal: NONE Psychiatric: anxiety Endocrine: HYPOTHYROIDISM Blood Disorders: MDS History of MRSA: No History of VRE: No History of CDIFF: No Surgical History Surgical History: non-contributory Psychosocial History Who do you live with Patient/Self Services at Home None What is your primary language Occitan Tobacco Use: Never used ETOH Use: denies use Illicit Drug Use: denies illicit drug use Family History Family History, If Any: MOTHER FH: diabetes in FH: hypertension FATHER Parkinsonism Hx Contributory? No Review of Systems Review of Systems Constitutional: Reports: no symptoms. Ears, Nose, Throat, Mouth: Reports: no symptoms. Respiratory: Reports: no symptoms. Cardiovascular: Reports: no symptoms. Gastrointestinal/Abdominal: Reports: no symptoms. Musculoskeletal: Reports: see HPI, back pain. Neurological/Psychological: Reports: no symptoms. Physical Exam Physical Exam General Appearance: well developed/nourished, alert, awake, mild distress Head: atraumatic Eyes: Bilateral: PERRL, EOMI. Neck: normal inspection, supple, full range of motion, no midline tenderness Respiratory: normal breath sounds, chest non-tender, no respiratory distress, lungs clear Cardiovascular: regular rate/rhythm, normal peripheral pulses Gastrointestinal: normal bowel sounds, soft, non-tender, no organomegaly Back: vertebral tenderness Extremities: non-tender, normal range of motion Straight Leg Raising: Right: Negative. Left: Negative. Neurologic/Psych: no motor/sensory deficits, awake, alert, oriented x 3, normal gait, normal mood/affect Core Measures CVA/TIA Diagnosis: No Progress Differential Diagnosis: cauda equina syn, herniated disc, myofascial strain Plan of Care: PAIN CONTROL Diagnostic Imaging: Viewed by Me: Radiology Read. Discussed w/RAD: Radiology Read. Radiology Impression: PATIENT: BEKAH GREENBERG PRESENT AGE: 87 PATIENT ACCOUNT NO: [id number] : [birth year] LOCATION: [facility] ORDERING PHYSICIAN: Isabelle VARGAS SERVICE DATE: 03/28/18 EXAM TYPE : RAD - XRY-LUMBOSACRAL SPINE 4 VIEWS EXAMINATION: XR LUMBOSACRAL SPINE CLINICAL INFORMATION: Evaluate for lumbar or sacral fracture with acute on chronic low back pain. COMPARISON: Lumbar spine MRI 07/12/2014. TECHNIQUE: 4 views of the lumbosacral spine were obtained. FINDINGS: 5 nonrib-bearing lumbar-type vertebral bodies. The frontal view is very limited by gaseous distention of bowel. On the lateral view there are compression deformities at every level of the lumbar spine as well as at the T12 level that are similar to the previous MRI. Compression fractures at T10 and T11 are not present on the prior study and are age-indeterminate. Nondiagnostic assessment of the sacrum secondary to overlying bowel gas. There is multilevel hypertrophic facet arthropathy. Abdominal aortic atherosclerotic calcification. Surgical screws within the proximal femurs bilaterally. Multiple calcifications project over the left pelvis. IMPRESSION: - Technically limited lumbar spine radiographs. Age- indeterminate compression fractures at T10 and T11 that are not present on the prior exam. Compression deformities throughout the entire lumbar spine and at T12 appear similar to the 07/12/2014 lumbar spine MRI. - Nondiagnostic assessment of the sacrum secondary to overlapping bowel gas. There is significant gaseous distention of bowel throughout the abdomen and pelvis. DICTATED BY: Easton Nolan MD DATE/TIME DICTATED:03/28/181930 [employer] MANAGER:BALTA DATE/TIME TRANSCRIBED:03/28/181930 CONFIDENTIAL, DO NOT COPY WITHOUT APPROPRIATE AUTHORIZATION. <Electronically signed in Other Vendor System> SIGNED BY: Easton Nolan MD 03/28/181940 Departure Departure Disposition: HOME OR SELF CARE Condition: Stable Clinical Impression Primary Impression: Compression fracture Referrals: Keke Chamberlain MD (PCP/Family) Additional Instructions: USE LIDOCAINE PATCHES TAKE TYLENOL #3 NEEDED FOR SEVERE PAIN \RETURN IF SYMPTOMS WORSEN OR FOR ANY CONCERNS Departure Forms: Customer Survey General Discharge Information Prescriptions: Current Visit Scripts Lidocaine (Lidoderm) 1 PAT TOP DAILY #30 PAT may wear up to 12 hours Tylenol With Codeine (Tylenol With Codeine #3 Tablet) 1 TAB PO Q8P PRN PAIN #20 TAB
[2018-03-28] MEDS ORDERED: TYLENOL WITH C1 EACH PO (20:49)
[2018-03-28] MEDS ORDERED: LIDODERM1 EACH TOP (20:49)
[2018-03-28 21:04] VITALS: BP 224/78
== END 2018-03-28 21:06 ==
LOC: ERH 18:32
DX: M48.55XA Collapsed vertebra, not elsewhere classified, thoracolumbar region, initial encounter for fracture (principal)
CPT/HCPCS: 72110

== ENCOUNTER 2018-04-17 14:32 | Inpatient (IN) | payer OTHER, MEDICARE ==
[~2018-04-17] VITALS: Ht 170.2 cm; Wt 42.0 kg
[~2018-04-17 14:32] MED LIST changes: +LIDODERM1 EACH TOP; +TYLENOL WITH C1 EACH PO
--- NOTE | 2018-04-17 16:11 | RADIOLOGY REPORT ---
EXAMINATION: XR ABDOMEN CLINICAL INDICATION: Rule out constipation COMPARISON: None TECHNIQUE: AP view of the abdomen. FINDINGS: Mildly dilated air-filled the small bowel loops throughout the abdomen suggesting an ileus versus a partial small bowel obstruction. Included lung bases are clear. There are pelvic phleboliths. IMPRESSION: Dilated air-filled the small bowel loops suggesting an ileus versus partial small bowel obstruction. CT scan with oral and IV contrast might be utilized for further characterization if clinically indicated.
[2018-04-17 16:24] LABS: ABSOLUTE BASOPHIL COUNT 0 /CUMM (0.0-0.2); ABSOLUTE EOSINOPHIL COUNT 0 /CUMM (0.0-0.7); ABSOLUTE GRANULOCYTE CT 1.5 /CUMM (1.4-6.5); ABSOLUTE LYMPH COUNT 0.6 /CUMM (1.2-3.4); ABSOLUTE MONOCYTE COUNT 0.1 /CUMM (0.10-0.60); BASOPHIL % 0.6 % (0.0-2.0); EOSINOPHIL % 0.5 % (0-5); GRANULOCYTE % 67.1 % (42.2-75.2); HEMATOCRIT 30.5 % (37-47); MEAN CORPUSCULAR HGB 35.4 PG (27.0-31.0); MEAN CORPUSCULAR HGB CONC 34.3 G/DL (33.0-37.0); MEAN CORPUSCULAR VOLUME 103.2 FL (81.0-99.0); MEAN PLATELET VOLUME 9.1 FL (7.4-10.4); PLATELET COUNT 121 /CUMM (130-400); RBC DISTRIBUTION WIDTH 13.6 % (11.5-14.5); RED BLOOD CELL CT 2.95 /CUMM (4.20-5.40); WHITE BLOOD CELL COUNT 2.2 /CUMM (4.8-10.8)
--- NOTE | 2018-04-17 17:26 | ED GI/GU/ABDOMINAL COMPLAINT ---
History of Present Illness General Chief Complaint: Nausea, Vomiting, Diarrhea Stated Complaint: BACK PAINX 1 MONTH. NAUSEA/DIARRHEA X 2 DAYS Source: patient Exam Limitations: no limitations Vital Signs & Intake/Output Vital Signs & Intake/Output Vital Signs Date Time Temp Pulse Resp B/P B/P Pulse O2 O2 Flow FiO2 Mean Ox Delivery Rate 04/18 0238 98.0 58 16 220/70 04/18 0207 58 16 220/70 97 Room Air 04/17 2303 98.0 58 16 188/81 96 Room Air 04/17 2146 98.0 60 16 186/81 95 Room Air 04/17 2142 98.0 66 18 95 Room Air 04/17 2140 98.0 66 18 04/17 2101 98.0 75 18 208/ 95 Room Air 04/17 1932 98.0 78 20 94 Room Air 04/17 1914 98.0 74 18 04/17 1849 98.0 65 18 21604/17 1805 98.0 65 18 97 Room Air 04/17 1441 97.6 88 18 166/80 97 Room Air ED Intake and Output 04/18 0000 04/17 1200 Intake Total 1000 Output Total Balance 1000 Intake, IV 1000 Patient 110 lb Weight Allergies Coded Allergies: No Known Allergies (04/11/17) Triage Note: PT REPORTS DIARRHEA X 48 HRS. FOR THE PAST SEVERAL WEEKS SHE HAS BEEN EXPERIENCING INTERMITTENT DIARRHEA AND CONSTIPATION. ALSO REPORTS NAUSEA WITH NO VOMITING. Triage Nurses Notes Reviewed? yes LMP (ages 10-50): unknown ? n Is pt currently ? No Onset: Abrupt Duration: day(s):, constant, continues in ED, getting worse Timing: single episode today Quality/Severity: cramping, fullness, moderate Severity Numbers: 8 Location: generalized abdomen Radiation: no radiation Activities at Onset: none Prior Abdominal Problems: none Past Sexual History: Unobtainable at this time No Modifying Factors: none Modifying Factors: Worsens With: palpation. Associated Symptoms: abdominal pain, diarrhea HPI: 87-year-old female past medical history of hypertension, hyperlipidemia, anxiety , chronic back pain presents for evaluation of abdominal pain back pain and diarrhea. Patient reports that she's been having abdominal pain intermittently over the past month but worse the past few days. Pain is located diffusely in her lower abdomen described as cramping and fullness. She reports abdominal distention nausea but no vomiting and multiple episodes of watery diarrhea. States that she's recently been constipated due to taking Tylenol with Codeine that she was prescribed for her back pain. She saw her primary care doctor and was given Linzess which she took for the first time 2 days ago and the diarrhea followed. She has no bright red blood per rectum, melena, fever, recent antibiotics, recent travel chest pain or shortness of breath. No headaches changes in vision. Back pain is located in her lower back radiating to both sides to her abdomen. No numbness or tingling or bowel or bladder dysfunction (Konrad Enriquez) Reconcile Medications Amiodarone HCl 100 MG TABLET 1 TAB PO DAILY HEART (Reported) Atorvastatin Calcium 10 MG TABLET 1 TAB PO DAILY CHOLESTEROL (Reported) Dorzolamide HCl/Timolol Maleat (Dorzolamide-Timolol Eye Drops) 22.3 MG-6.8 MG/ML DROPS 1 GTT OPH BID BOTH EYES (Reported) Hydralazine HCl 25 MG TABLET 1 TAB PO TID HIGH BP Levothyroxine Sodium (Levoxyl) 50 MCG TABLET 1 TAB PO DAILY thyoirds ( Reported) Lidocaine (Lidoderm) 5 % ADH..PATCH 1 PAT TOP DAILY COMPRESSION FRACTURE may wear up to 12 hours Lisinopril 20 MG TABLET 2 TAB PO DAILY high bp Sertraline HCl 50 MG TABLET 1 TAB PO DAILY MENTAL HEALTH (Reported) (Skylar CHA,Angel Dominguez) Past History Travel History Traveled to [place] past 21 day No Medical History Any Pertinent Medical History? see below for history Neurological: NONE EENT: NONE Cardiovascular: hypertension, HYPERCHOLESTEROLEMIA ARRHYTHMIA Respiratory: NONE Gastrointestinal: NONE Hepatic: NONE Renal: NONE Musculoskeletal: NONE Psychiatric: anxiety Endocrine: HYPOTHYROIDISM Blood Disorders: MDS History of MRSA: No History of VRE: No History of CDIFF: No Surgical History Surgical History: non-contributory Psychosocial History Who do you live with Patient/Self Services at Home None What is your primary language Stateless Tobacco Use: Never used Family History Family History, If Any: MOTHER FH: diabetes in FH: hypertension FATHER Parkinsonism Hx Contributory? No (Konrad Enriquez) Review of Systems Review of Systems Constitutional: Reports: no symptoms. EENTM: Reports: no symptoms. Respiratory: Reports: no symptoms. Cardiovascular: Reports: no symptoms. GI: Reports: see HPI, abdominal pain, diarrhea, nausea. Genitourinary: Reports: no symptoms. Musculoskeletal: Reports: see HPI, back pain. Skin: Reports: no symptoms. Neurological/Psychological: Reports: no symptoms. Hematologic/Endocrine: Reports: no symptoms. Immunologic/Allergic: Reports: no symptoms. All Other Systems: Reviewed and Negative (Konrad Enriquez) Physical Exam Physical Exam General Appearance: well developed/nourished, no apparent distress, alert, awake Head: atraumatic, normal appearance Eyes: Bilateral: normal appearance, PERRL, EOMI, normal inspection. Ears, Nose, Throat, Mouth: moist mucous membrane Neck: normal inspection, supple, full range of motion Respiratory: normal breath sounds, chest non-tender, no respiratory distress, lungs clear Cardiovascular: regular rate/rhythm, normal peripheral pulses Peripheral Pulses: 2+ radial (R), 2+ radial (L) Gastrointestinal: normal bowel sounds, soft, no organomegaly, distention, bilateral lower abdominal distention and tenderness to palpation Back: normal inspection, normal range of motion, lumbar spine and paraspinous muscles and palpation bilaterally no CVA tendernessof deformities or bruising swelling or abrasions to the rashes Extremities: normal range of motion Neurologic/Psych: no motor/sensory deficits, awake, alert, oriented x 3 Skin: intact, normal color, warm/dry Core Measures ACS in differential dx? No Sepsis Present: No Sepsis Focused Exam Completed? No (Konrad Enriquez) Progress Differential Diagnosis: AAA, appendicitis, biliary colic, bowel obstruction, colon cancer, cholecystitis, diverticulitis, gastritis, ischemic bowel, inflamm bowel dis, kidney stone, pancreatitis, SBO, UTI/pyelo Plan of Care: Orders Procedure Date/time Status Nothing by Mouth 04/18 B Active CBC WITHOUT DIFFERENTIAL 04/18 06 Active BASIC ELECTROLYTES PLUS BUN&CR 04/18 06 Active TROPONIN LEVEL 04/18 204 Complete PT Evaluate & Treat 04/18 200 Active Pathway - chart 04/18 200 Active House Staff 04/18 200 Active EKG 04/18 200 Active NUTRITIONAL CONSULT 04/18 200 Active Code Status 04/18 200 Active Saline Lock 04/18 52 Active Misc Message 04/18 52 Active ED Holding Orders 04/18 52 Active Admit to inpatient 04/18 52 Active Vital Signs 04/18 52 Active Code Status 05/28 0052 Complete Patient Data 04/18 0006 Active VTE Mechanical Prophylaxis 04/18 UNK Active EKG 04/17 1838 Active Intake & Output 04/17 1706 Active URINALYSIS 04/17 1552 Complete TROPONIN LEVEL 04/17 1552 Complete LIPASE 04/17 1552 Complete LACTIC ACID 04/17 1552 Complete COMPREHENSIVE METABOLIC PANEL 04/17 155 Complete CBC WITHOUT DIFFERENTIAL 04/17 1552 Complete Current Medications Sig/Maureen Start time Last Medication Dose Stop Time Status Admin Atorvastatin Calcium 10 MG 1700 04/18 1700 AC (Lipitor) Amiodarone HCl 100 MG DAILY 04/18 0900 AC (Cordarone) Lidocaine 1 PAT DAILY 04/18 09 AC (Lidoderm) Lisinopril 40 MG DAILY 04/18 09 AC (Prinivil) Sertraline HCl 50 MG DAILY 04/18 09 AC (Zoloft) Timolol Maleate 1 GTT BID 04/18 09 AC (Timoptic) Levothyroxine Sodium 0.05 MG DAILY AC 04/18 0700 AC (Synthroid) Heparin Sodium 5,000 UNIT Q8 04/18 0600 AC (Porcine) Hydralazine HCl 25 MG ONCE ONE 04/18 0230 CAN (Apresoline) 04/18 0231 Dorzolamide HCl 1 GTT BID 04/18 0205 AC (Trusopt 2% 10 ML) Laboratory Tests 04/18/18 0213: Troponin I 0.01 04/17/18 2156: Urine Color YEL, Urine Clarity CLEAR, Urine pH 7.0, Ur Specific [place] <= 1.005 , Urine Protein NEG, Urine Ketones NEG, Urine Nitrite NEG, Urine Bilirubin NEG, Urine Urobilinogen 0.2, Ur Leukocyte Esterase NEG, Ur Microscopic EXAM NOT REQUIRED, Urine Hemoglobin NEG, Urine Glucose NEG 04/17/18 1852: Lactic Acid Cancelled 04/17/18 1613: Anion Gap 10, Estimated GFR 33 L, BUN/Creatinine Ratio 14.0, Glucose 104 H, Lactic Acid 0.6 L, Calcium 9.3, Total Bilirubin 0.5, AST 24, ALT 25, Alkaline Phosphatase 90, Troponin I < 0.01, Total Protein 7.3, Albumin 4.0, Globulin 3.3, Albumin/Globulin Ratio 1.2, Lipase 288, CBC w Diff NO MAN DIFF REQ, RBC 2.95 L, MCV 103.2 H, MCH 35.4 H, MCHC 34.3, RDW 13.6, MPV 9.1, Gran % 67.1, Lymphocytes % 28.0, Monocytes % 3.8, Eosinophils % 0.5, Basophils % 0.6, Absolute Granulocytes 1.5, Absolute Lymphocytes 0.6 L, Absolute Monocytes 0.1, Absolute Eosinophils 0, Absolute Basophils 0 Patient seen and evaluated. She is here with lower abdominal pain and diarrhea. She also has chronic back pain. Initial evaluation shows lower abdominal tenderness. Labs EKG CT scan ordered. Patient medicated with IV Tylenol. pts blood pressure spiked up to 200s over 80s. She usually takes hydralazine but did not take it tonight yet. Oral and IV hydralazine ordered. She is feeling better after IV Tylenol. Blood pressure remains elevated to 100s despite hydralazine IV labetalol ordered. Blood work does not show any acute change. Patient has a white blood cell count of 2.2 which appears chronically decreased for her. BUN and creatinine are at baseline. CT scan shows evidence of a partial small bowel obstruction versus ileus. Case was discussed with Dr. Griffin from surgery who does not feel that a surgical cases patient is having multiple bowel movements passing gas and is not vomiting. He does not recommend any surgical intervention. Patient remains hypertensive to 180s over 80s and despite multiple IV and oral medications. Patient will be admitted to the hospital for further evaluation and treatment of hypertensive urgency. She will require serial labs, serial EKGs, IV antihypertensives, cardiology consult, echocardiogram, serial abdominal exams, surgical consult. Case discussed with Dr. Cheng he agrees. Diagnostic Imaging: Viewed by Me: Radiology Read, CT Scan. Discussed w/RAD: Radiology Read, CT Scan. Radiology Impression: PATIENT: BEKAH GREENBERG PRESENT AGE: 87 PATIENT ACCOUNT NO: [id number] : [birth year] LOCATION: [facility] ([facility] ORDERING PHYSICIAN: Konrad VARGAS SERVICE DATE: 04/17/18 EXAM TYPE: CAT - CT ABD & PELVIS W IV CONTRAST EXAMINATION: CT ABD PELVIS W IV CONTRAST CLINICAL INFORMATION: SBO, diverticulitis, diarrhea abdominal pain. COMPARISON: None TECHNIQUE: Multidetector volumetric imaging was performed from the superior aspect of the liver through the pubic symphysis Study done without contrast. Sagittal and coronal reformatted images were obtained on the technologist's workstation. DLP: 240 mGy-cm FINDINGS: Study limited, motion artifacts and paucity of intraperitoneal fat. LOWER THORAX: Included lung bases are clear. HEPATOBILIARY: No focal hepatic lesions. No biliary ductal dilatation. GALLBLADDER: Gallbladder unremarkable. SPLEEN: There are numerous splenic calcifications. PANCREAS: Pancreas is normal in size. Pancreatic duct is nondilated. STOMACH AND GASTROINTESTINAL TRACT: Stomach is grossly unremarkable. There are dilated small bowel loops throughout to the abdomen. The LEFT side of the colon is collapsed. Concerning for an ileus versus early or partial SBO. Difficult to assess for transition zone in the absence of oral contrast. Appendix not visualized obscured by crowding of bowel loops and paucity of fat. ADRENALS: No adrenal nodules. KIDNEYS/URETERS: No hydronephrosis. Tiny RIGHT renal hypodensity too small to characterize. No suspicious renal mass. URINARY BLADDER: Urinary bladder distended unopacified. PELVIC VISCERA: Unremarkable PERITONEUM: No free air or fluid. LYMPH NODES: No lymphadenopathy. VASCULAR: There are heavy vascular calcification of the aorta. No aneurysm. BONES, ABDOMINAL WALL AND SOFT TISSUES: There are compression fractures of all lumbar vertebrae, indeterminant age. There are bilateral femur ORIF causing metal artifact. IMPRESSION: 1. Diffusely dilated small bowel loops, difficult to assess for a transition zone given the lack of oral contrast, crowding of bowel loops and paucity of peritoneal fat. This is suggestive of an ILEUS VERSUS EARLY OR PARTIAL SMALL BOWEL OBSTRUCTION. The LEFT side of the colon and descending colon and rectum are collapsed. Clinical correlation recommended. No free air. 2. Heavy vascular calcification. 3. Compression fractures of all lumbar vertebrae. 4. Other findings include multiple calcified splenic granulomas, distended urinary bladder, bilateral humeral prostheses, DICTATED BY: Mindy CHA,Hadrenitar DATE/TIME DICTATED:04/17/182109 ROLL TRUCKER:BALTA DATE/ TIME TRANSCRIBED:04/17/182109 CONFIDENTIAL, DO NOT COPY WITHOUT APPROPRIATE AUTHORIZATION. <Electronically signed in Other Vendor System> SIGNED BY: Mindy CHA,Hadeer 04/17/182122 Initial ED EKG: normal sinus rhythm, sinus rhythm, lvh, old inferior infarct , lvh (Black PA,Konrad) Departure Departure Disposition: STILL A PATIENT Condition: Stable Clinical Impression Primary Impression: Hypertensive urgency Secondary Impressions: Ileus Referrals: Cintia CHA,Keke León (PCP/Family) Departure Forms: Customer Survey General Discharge Information Admission Note Spoke With: Dominga Barry MD Documentation of Exam: Documentation of any treatments & extenuating circumstances including Concerns Regarding Discharge (functional status, medication knowledge or non-compliance, living conditions, etc.) that warrant an admission rather than observation: [ Serial labs, serial EKGs, telemetry, IV antihypertensives, surgical consult, serial abdominal exams, cardiology consult, echocardiogram, medication adjustment, echocardiogram, medication adjustment surgical consult, serial abdominal exams, cardiology consult telemetry,Serial labs, serial EKGs, IV antihypertensives,] (Konrad Enriquez) PA/LAPPING MACHINE TENDER Co-Sign Statement Statement: ED Attending supervision documentation- [x] I saw and evaluated the patient. I have also reviewed all the pertinent lab results and diagnostic results. I agree with the findings and the plan of care as documented in the PA's/LAPPING MACHINE TENDER's documentation. 04/18/18, 0:55.... pt well appearing in ED, +bowel sounds, mild distention... ct scan noted... I doubt obstruction given patient comfort/exam... pt stable for tele. [] I have reviewed the ED Record and agree with the PA's/LAPPING MACHINE TENDER's documentation. [] Additions or exceptions (if any) to the PAs/LAPPING MACHINE TENDER's note and plan are summarized below: [] (Skylar CHA,Angel Dominguez)
--- NOTE | 2018-04-17 21:23 | CT SCAN REPORT ---
EXAMINATION: CT ABD PELVIS W IV CONTRAST CLINICAL INFORMATION: SBO, diverticulitis, diarrhea abdominal pain. COMPARISON: None TECHNIQUE: Multidetector volumetric imaging was performed from the superior aspect of the liver through the pubic symphysis Study done without contrast. Sagittal and coronal reformatted images were obtained on the technologist's workstation. DLP: 240 mGy-cm FINDINGS: Study limited, motion artifacts and paucity of intraperitoneal fat. LOWER THORAX: Included lung bases are clear. HEPATOBILIARY: No focal hepatic lesions. No biliary ductal dilatation. GALLBLADDER: Gallbladder unremarkable. SPLEEN: There are numerous splenic calcifications. PANCREAS: Pancreas is normal in size. Pancreatic duct is nondilated. STOMACH AND GASTROINTESTINAL TRACT: Stomach is grossly unremarkable. There are dilated small bowel loops throughout to the abdomen. The LEFT side of the colon is collapsed. Concerning for an ileus versus early or partial SBO. Difficult to assess for transition zone in the absence of oral contrast. Appendix not visualized obscured by crowding of bowel loops and paucity of fat. ADRENALS: No adrenal nodules. KIDNEYS/URETERS: No hydronephrosis. Tiny RIGHT renal hypodensity too small to characterize. No suspicious renal mass. URINARY BLADDER: Urinary bladder distended unopacified. PELVIC VISCERA: Unremarkable PERITONEUM: No free air or fluid. LYMPH NODES: No lymphadenopathy. VASCULAR: There are heavy vascular calcification of the aorta. No aneurysm. BONES, ABDOMINAL WALL AND SOFT TISSUES: There are compression fractures of all lumbar vertebrae, indeterminant age. There are bilateral femur ORIF causing metal artifact. IMPRESSION: 1. Diffusely dilated small bowel loops, difficult to assess for a transition zone given the lack of oral contrast, crowding of bowel loops and paucity of peritoneal fat. This is suggestive of an ILEUS VERSUS EARLY OR PARTIAL SMALL BOWEL OBSTRUCTION. The LEFT side of the colon and descending colon and rectum are collapsed. Clinical correlation recommended. No free air. 2. Heavy vascular calcification. 3. Compression fractures of all lumbar vertebrae. 4. Other findings include multiple calcified splenic granulomas, distended urinary bladder, bilateral humeral prostheses,
--- NOTE | 2018-04-18 00:49 | History & Physical ---
Edy CHA,[facility] 04/18/18 0048: General Information and HPI History of Present Illness: Ms. Glez is an 87-year-old female with past medical history of hypertension, hyperlipidemia, anxiety, hypothyroidism, and myelodysplastic syndrome who presents with diarrhea. History is obtained from patient and her son Joao and [id number] body. They note that for the past month she is complaining of back pain, constipation, and diarrhea. The patient has been treating with Metamucil and Fleet enemas. She has had no bloody diarrhea and no recent antibiotic treatment. She does have a history of C. difficile. She also reports weakness and anxiety. The patient was in the ER 3 weeks ago for the similar complaints. She has had decreased p.o. intake. She did have a hysterectomy many years ago. Allergies/Medications Allergies: Coded Allergies: No Known Allergies (04/11/17) Past History Travel History Traveled to [place] past 21 day No Medical History Neurological: NONE EENT: NONE Cardiovascular: hypertension, HYPERCHOLESTEROLEMIA ARRHYTHMIA Respiratory: NONE Gastrointestinal: NONE Hepatic: NONE Renal: NONE Musculoskeletal: NONE Psychiatric: anxiety Endocrine: HYPOTHYROIDISM Blood Disorders: MDS History of MRSA: No History of VRE: No History of CDIFF: No Surgical History Surgical History: non-contributory Past Family/Social History Family History Relations & Conditions if any MOTHER FH: diabetes in FH: hypertension FATHER Parkinsonism Psychosocial History Who Do You Live With? child, lives with her daughter Services at Home: None Primary Language: French Functional Ability ADLs Independent: dressing, eating, toileting, bathing. Ambulation: walker IADLs Independent: finances. Needs Assist: shopping, housework, food prep. Review of Systems Review of Systems Constitutional: Reports: no symptoms. EENTM: Reports: no symptoms. Cardiovascular: Reports: no symptoms. Respiratory: Reports: no symptoms. GI: Reports: see HPI. Genitourinary: Reports: no symptoms. Musculoskeletal: Reports: no symptoms. Skin: Reports: no symptoms. Neurological/Psychological: Reports: no symptoms. Hematologic/Endocrine: Reports: no symptoms. Immunologic/Allergic: Reports: no symptoms. All Other Systems: Reviewed and Negative Exam & Diagnostic Data Last 24 Hrs of Vital Signs/I&O Vital Signs Date Time Temp Pulse Resp B/P B/P Pulse O2 O2 Flow FiO2 Mean Ox Delivery Rate 04/17 2303 98.0 58 16 188/81 96 Room Air 04/17 2146 98.0 60 16 186/81 95 Room Air 04/17 2142 98.0 66 18 95 Room Air 04/17 214 98.0 66 18 04/17 2101 98.0 75 18 208 95 Room Air 04/17 1932 98.0 78 20 94 Room Air 04/17 1914 98.0 74 18 04/17 1849 98.0 65 18 04/17 1805 98.0 65 18 97 Room Air 04/17 1441 97.6 88 18 166/80 97 Room Air Intake & Output 04/18 0800 04/18 0000 04/17 1600 Intake Total 1000 Output Total Balance 1000 Intake, IV 1000 Patient 49.895 kg Weight Physical Exam General Appearance Alert, Oriented X3, Cooperative, No Acute Distress HEENT Atraumatic, PERRLA, dry Cardiovascular Regular Rate, Normal S1, Normal S2, soft murmur Lungs Clear to Auscultation, Normal Air Movement Abdomen Normal Bowel Sounds, Soft, No Tenderness Extremities No Edema, Normal Pulses, No Tenderness/Swelling Last 24 Hrs of Labs/Wally: Laboratory Tests 04/17/182155: Urine Color YEL, Urine Clarity CLEAR, Urine pH 7.0, Ur Specific [place] <= 1.005 , Urine Protein NEG, Urine Ketones NEG, Urine Nitrite NEG, Urine Bilirubin NEG, Urine Urobilinogen 0.2, Ur Leukocyte Esterase NEG, Ur Microscopic EXAM NOT REQUIRED, Urine Hemoglobin NEG, Urine Glucose NEG 04/17/18 1852: Lactic Acid Cancelled 04/17/18 1613: Anion Gap 10, Estimated GFR 33 L, BUN/Creatinine Ratio 14.0, Glucose 104 H, Lactic Acid 0.6 L, Calcium 9.3, Total Bilirubin 0.5, AST 24, ALT 25, Alkaline Phosphatase 90, Troponin I < 0.01, Total Protein 7.3, Albumin 4.0, Globulin 3.3, Albumin/Globulin Ratio 1.2, Lipase 288, CBC w Diff NO MAN DIFF REQ, RBC 2.95 L, MCV 103.2 H, MCH 35.4 H, MCHC 34.3, RDW 13.6, MPV 9.1, Gran % 67.1, Lymphocytes % 28.0, Monocytes % 3.8, Eosinophils % 0.5, Basophils % 0.6, Absolute Granulocytes 1.5, Absolute Lymphocytes 0.6 L, Absolute Monocytes 0.1, Absolute Eosinophils 0, Absolute Basophils 0 Assessment/Plan Assessment: Ms. Glez is an 87-year-old female with past medical history of hypertension, hyperlipidemia, anxiety, hypothyroidism, and myelodysplastic syndrome who presents with diarrhea. On presentation vital signs were T 97.6, HR 88, RR 18, BP 166/89, saturating 97% on room air. Blood pressure went up to 16/84. Laboratories are significant for white cell count 2.2, hemoglobin 10.4, platelets 121, MCV 103.2, BUN 21, creatinine 1.5 (baseline 1.5), glucose 104, calcium 9.3, negative LFTs, troponin less than 0.01, negative urinalysis. Abdominal x-ray showed ileus versus partial SBO. CT abdomen/pelvis a diffusely dilated small bowel loops suggesting ileus versus early versus partial small bowel obstruction. He also showed compression fractures of all lumbar vertebrae and heavy Vascular calcification. EKG: sinus rhythm, LVH, no acute changes. She will be admitted to telemetry and treated for the following problems: 1. Hypertensive urgency 2. Ileus 3. Back pain 4. Myelodysplastic syndrome 5. Underweight #Hypertensive urgency: Patient has history of whitecoat hypertension with difficult to control blood pressure. She has no headache or evidence of end organ damage at this time. -Continue antihypertensive regimen -Monitor blood pressure -Telemetry monitoring -EKG and troponins 2 #Ileus: Patient has history of constipation and diarrhea that she is self treating. Unclear etiology for the ileus. She did have a hysterectomy many years ago. She has no nausea or vomiting. -N.p.o., advance diet as tolerated tomorrow #Back pain: Patient has compression fractures of all lumbar vertebrae, likely the etiology of her back pain. -Acetaminophen -Lidocaine patch -PT consult #Underweight: Patient's BMI 17.2, which is less than normal. -Nutrition consult #Chronic medical problems: -Continue other home medications DVT prophylaxis with heparin N.p.o. DNR/DNI As Ranked By This Provider Problem List: 1. Hypertensive urgency Core Measures/Misc (08/08) Acute Coronary Syndrome ACS Diagnosis: No Congestive Heart Failure Congestive Heart Failure Diagnosis No Cerebrovascular Accident CVA/TIA Diagnosis: No VTE (View Protocol) VTE Risk Factors Age>40 No Mechanical VTE Prophylaxis d/t N/A MechProphylax Ordered No VTE Pharm Prophylaxis d/t NA PharmProphylax ordered Sepsis (View protocol) Sepsis Present: No If YES complete Sepsis Event Note If YES complete Sepsis Event Note Cristhian Sierra 04/18/18 0232: General Information and HPI Allergies/Medications Home Med list Amiodarone HCl 100 MG TABLET 1 TAB PO DAILY HEART (Reported) Atorvastatin Calcium 10 MG TABLET 1 TAB PO DAILY CHOLESTEROL (Reported) Dorzolamide HCl/Timolol Maleat (Dorzolamide-Timolol Eye Drops) 22.3 MG-6.8 MG/ML DROPS 1 GTT OPH BID BOTH EYES (Reported) Hydralazine HCl 25 MG TABLET 2 TAB PO TID HIGH BP Levothyroxine Sodium (Levoxyl) 50 MCG TABLET 1 TAB PO DAILY thyoirds ( Reported) Lidocaine (Lidoderm) 5 % ADH..PATCH 1 PAT TOP DAILY COMPRESSION FRACTURE may wear up to 12 hours Lisinopril 20 MG TABLET 2 TAB PO DAILY high bp Sertraline HCl 50 MG TABLET 1 TAB PO DAILY MENTAL HEALTH (Reported) Core Measures/Misc (08/08) Sepsis (View protocol) If YES complete Sepsis Event Note If YES complete Sepsis Event Note Resident Review Statement Resident Statement: examined this patient, discussed with event marketing intern, agreed with event marketing intern, reviewed images Other Findings: This is a 87-year with past medical history of hypertension, dyslipidemia, hypothyroidism, basal cell carcinoma s/p resection,previous h/o hip fracture in 2012 and 2013,previous cataract and thyroid surgery,glaucoma who was last admitted in March 2017 [facility] for epistaxis and hypertension She presented today with history of not feeling well. She has been having constipation which she has been taking laxatives but Wednesday after taking laxatives worked up on Wednesday with diarrhea about 3-4 motions which was nonbloody and denies that it was smelling terribly. Patient denies and abdominal pain nausea or vomiting. She denies any headache and dizziness lightheadedness or blurring of vision. She has no chest pain chest pressure or shortness of breath. She reports that she has been taking all her medications and tolerating them well she lives with her daughter who helps her with taking medications. She denies taking excessive salts. On arrival the patient was hypertensive with blood pressure of 166/80 which increased to 200/88 had heart rate of 88 afebrile 97.6 and saturating 97% on room air When we examined her she was lying comfortably on the bed she is cachectic, she has a growing mass about 1 x 1 cm lateral to the left eye which looks like basal cell carcinoma Cardiovascular: Regular rate and rhythm S1-S2 with a pansystolic murmur most prominent in the left axillary line Chest clear lungs bilaterally Abdomen: Scaphoid nontender normal bowel sounds Extremities no edema Labs: Anemia with H&H of 10.4 and 30.5, leukopenia with WBC of 2.2, increased creatinine of 1.5 which is within her baseline GFR is 33 which makes her to have CKD stage IIIB Troponin -0.01 CT abdomen and pelvis shows diffusely dilated small bowel loops suggestive of ileus with appreciation of lumbar compression Assessment and plan This is an 87 years old lady who is presenting with constipation and diarrhea without evidence of recent use of antibiotic and diarrhea that is not foul- smelling following using laxatives. She has evidence of ileus on imaging but has no abdominal pain and has been opening bowels without any nausea or vomiting. She was found to be hypertensive with systolic going to 200s and required several rounds of IV blood pressure medications. Hypertensive urgency Ileus CKD stage IIIB Malnutrition Chronic back pain Admit the patient to telemetry floor Vital signs every shift with close monitoring of blood pressure Restart patient home blood pressure medications and aim to maintain blood pressure around 170s, do not decreased rapidly. Troponin and EKG 1 more set Patient will be kept nothing by mouth overnight and started with clear liquids a.m. PT evaluation Nutritional consult Fall precautions Pain control with Tylenol IV 1000 mg every 6 when necessary for pain lidocaine patch, avoid opiates Jhonny CHA, [facility] 04/18/18 0443: Core Measures/Misc (08/08) Sepsis (View protocol) If YES complete Sepsis Event Note If YES complete Sepsis Event Note Attending MD Review Statement Attending Statement Attending MD Statement: examined this patient, discuss w/resident/PA/MOTOR VEHICLE SALESPERSON, agreed w/resident/PA/MOTOR VEHICLE SALESPERSON, reviewed images, amended to note Attending Assessment/Plan: 87 yo F with h/o HTN, hypothyroidism, CKD stage 3, compression fracture with chronic back pain, Cdiff colitis, paroxysmal Afib, MDS, is brought in for evaluation of diarrhea and back pain. Patient has a h/o chronic compression fractures and was seen in the ER on March 28 for ongoing back pain for which she was prescribed tylenol with codeine and lidoderm patch. No recent falls. Her back pain is worse only on movement especially on the right lower back, does not radiate down her leg. She reports being intermittently constipated since she was started on tylenol+ codeine, with bloating sensation and abdominal discomfort. She used Linzess (prescribed by PCP) 2 days ago, and started having 2-3 episodes of nonbloody diarrhea for past 2 days. No bowel or bladder incontinence. She currently denies abdominal pain, nausea or vomiting. She has had no further episodes of diarrhea since coming to ER. Patient is compliant with her medications. On ER arrival BP was 166/80, after which she received one liter NS bolus. Patient notes her BP is usually around 150-160 at home. She states she gets anxious in the hospital and may have white coat hypertension. Vitals: BP 216/84 --> 188/81 after hydralazine and labetalol. Other vitals stable. Exam: AAO, lethargic elderly lady, skin cancer noted to face, Chest clear, Heart S1S2 regular, systolic murmur+, Abd soft, NT, BS+. Labs: WBC 2.2, H/H 10.4/30.5, Plt 121, BUN 21, Creat 1.5 (baseline), gucose 104, trop neg. UA clear. Abdomen Xray: dilated air-filled small bowel loops suggesting ileus vs. Partial SBO. CT abd: diffusely dilated small bowel loops, no transition point ileus vs early SBO. Left side of colon and descending colon/ rectum are collapsed. Lumbar compression fractures. EKG: sinus rhythm, LVH, no acute changes. Echo (2017): EF 60%, impaired LV relaxation. Assessment and plan: 1. Hypertensive urgency ?pain induced ?anxiety 2. Ileus vs partial SBO SBO seems less likely as patient has no N/V and is having diarrhea 3. Paroxysmal Afib 4. Chronic back pain compression fracture 5. CKD stable 6. History of MDS with pancytopenia - Admit to Telemetry - Patient missed her afternoon meds. We will resume home regimen hydralazine 50 TID, lisinopril 40 daily. She had a reaction to amlodipine felt jittery/ shaky during previous admission. Can uptitrate hydralazine as needed. - Rule out ACS - Check TSH, free T4 - Obtain echo and Cardio consult - Continue amiodarone and statin - Serial abdomen exam - NPO for now, advance diet as tolerated in AM - If recurrent diarrhea, check for Cdiff, stool cultures - Surgery consult - Pain management with lidoderm patch and IV tylenol - No NSAIDs - Avoid opiates in this elderly lady - PT eval DVT ppx Alps (thrombocytopenia). DNR/I.
[2018-04-18] MEDS ORDERED: LEVOXYL50 MCG PO (02:07)
--- NOTE | 2018-04-18 04:44 | Admission Certification ---
Admission Certification Certification Statement - As attending physician, I certify that at the time of - admission, based on clinical presentation, severity of - symptoms, need for further diagnostic testing and - therapeutic interventions, and risk of adverse outcomes - without in-hospital treatment, in my clinical assessment, - this patient requires an acute hospital stay for a minimum - of two nights or longer. I have also considered psychsocial - factors such as support system, advanced age, financial - issues, cognitive issues, and failed out-patient treatments, - past re-admission history, safety of patient, and lack of - compliance as applicable. Specific rationale supporting this admission is: Hypertensive urgency
[2018-04-18 05:34] VITALS: BP 230/60
[2018-04-18 06:17] VITALS: BP 211/85
[2018-04-18 06:28] LABS: ABSOLUTE BASOPHIL COUNT 0 /CUMM (0.0-0.2); ABSOLUTE EOSINOPHIL COUNT 0 /CUMM (0.0-0.7); ABSOLUTE GRANULOCYTE CT 1.3 /CUMM (1.4-6.5); ABSOLUTE LYMPH COUNT 0.7 /CUMM (1.2-3.4); ABSOLUTE MONOCYTE COUNT 0.1 /CUMM (0.10-0.60); BASOPHIL % 1.1 % (0.0-2.0); EOSINOPHIL % 0.5 % (0-5); GRANULOCYTE % 62.2 % (42.2-75.2); HEMATOCRIT 30.8 % (37-47); MEAN CORPUSCULAR HGB 35.2 PG (27.0-31.0); MEAN CORPUSCULAR HGB CONC 33.9 G/DL (33.0-37.0); MEAN CORPUSCULAR VOLUME 103.7 FL (81.0-99.0); MEAN PLATELET VOLUME 9.2 FL (7.4-10.4); PLATELET COUNT 116 /CUMM (130-400); RBC DISTRIBUTION WIDTH 14.3 % (11.5-14.5); RED BLOOD CELL CT 2.97 /CUMM (4.20-5.40); WHITE BLOOD CELL COUNT 2.1 /CUMM (4.8-10.8)
[2018-04-18] MEDS ORDERED: HYDRALAZINE HCL25 M1 PO ×2 (07:47)
[2018-04-18 08:00] VITALS: BP 230/80
--- NOTE | 2018-04-18 08:19 | Cons- General Surgery ---
Meghan Palmaa 04/18/18 0808: General Information and HPI Consulting Request Date of Consult: 04/18/18 Requested By: Dominga Barry MD Reason for Consult: abdominal bloating, intermittent diarrhea Source of Information: patient Exam Limitations: no limitations History of Present Illness: 87 y/o female brought into the ER yesterday with complains of back pain, nontraumatic. She also has been suffering with constipation over the last week and has been taking laxatives -not sure what she took, as a result she has had intermittent nonbloody diarrhea. She has no abdominal pain but mild bloating. Her appetite is diminshed but she denies nausea or vomiting. While in the ER she was found to be hypertensive however she was assymtomatic. Allergies/Medications Allergies: Coded Allergies: No Known Allergies (04/11/17) Home Med List: Amiodarone HCl 100 MG TABLET 1 TAB PO DAILY HEART (Reported) Atorvastatin Calcium 10 MG TABLET 1 TAB PO DAILY CHOLESTEROL (Reported) Dorzolamide HCl/Timolol Maleat (Dorzolamide-Timolol Eye Drops) 22.3 MG-6.8 MG/ML DROPS 1 GTT OPH BID BOTH EYES (Reported) Hydralazine HCl 25 MG TABLET 2 TAB PO TID HIGH BP Levothyroxine Sodium (Levoxyl) 50 MCG TABLET 1 TAB PO DAILY thyoirds ( Reported) Lidocaine (Lidoderm) 5 % ADH..PATCH 1 PAT TOP DAILY COMPRESSION FRACTURE may wear up to 12 hours Lisinopril 20 MG TABLET 2 TAB PO DAILY high bp Sertraline HCl 50 MG TABLET 1 TAB PO DAILY MENTAL HEALTH (Reported) Current Medications: Current Medications Sig/Maureen Start time Last Medication Dose Route Stop Time Status Admin Acetaminophen 1,000 MG Q6P PRN 04/18 0600 AC N/A 1 UNIT IV Acetaminophen 650 MG Q6PRN PRN 04/18 0400 DC PO Acetaminophen 0 .STK-MED ONE 04/17 1653 DC IV Acetaminophen 1,000 MG ONCE ONE 04/17 1615 DC 04/17 N/A 1 UNIT IV 04/17 1629 1706 Amiodarone HCl 100 MG DAILY 04/18 0900 AC PO Amlodipine Besylate 5 MG ONCE ONE 04/18 0645 CAN PO 04/18 0646 Atorvastatin Calcium 10 MG 1700 04/18 1700 AC PO Dorzolamide HCl 1 GTT BID 04/18 0205 AC OPH Heparin Sodium 5,000 UNIT Q8 04/18 0600 CAN (Porcine) SC Hydralazine HCl 25 MG TID 04/18 0900 DC PO Hydralazine HCl 50 MG TID 04/18 0900 AC PO Hydralazine HCl 10 MG ONCE ONE 04/18 0545 DC 04/18 IV 04/18 0546 0540 Hydralazine HCl 0 .STK-MED ONE 04/18 0239 DC .ROUTE Hydralazine HCl 25 MG ONCE ONE 04/18 0230 CAN PO 04/18 0231 Hydralazine HCl 10 MG ONCE ONE 04/18 0230 DC 04/18 IV 04/18 0231 0238 Hydralazine HCl 0 .STK-MED ONE 04/17 1849 DC .ROUTE Hydralazine HCl 10 MG ONCE ONE 04/17 1815 DC 04/17 IV 04/17 1816 1849 Hydralazine HCl 25 MG ONCE ONE 04/17 1815 DC 04/17 PO 04/17 1816 1914 Labetalol HCl 0 .STK-MED ONE 04/17 2139 DC IV Labetalol HCl 10 MG ONCE ONE 04/17 2115 DC 04/17 IV 04/17 211 2140 Levothyroxine Sodium 0.05 MG DAILY AC 04/18 0700 AC 04/18 PO 0659 Lidocaine 1 PAT DAILY 04/18 0900 AC TOP Lisinopril 40 MG DAILY 04/18 0900 AC PO Sertraline HCl 50 MG DAILY 04/18 0900 AC PO Sodium Chloride 1,000 ML BOLUS ONE 04/17 1615 DC 04/17 IV 04/17 1714 1706 Timolol Maleate 1 GTT BID 04/18 0900 AC OPH Past History Medical History Blood Transfusion Hx: Yes Neurological: NONE EENT: NONE Cardiovascular: hypertension, HYPERCHOLESTEROLEMIA ARRHYTHMIA Respiratory: NONE Gastrointestinal: NONE Hepatic: NONE Renal: NONE Musculoskeletal: NONE Psychiatric: anxiety Endocrine: HYPOTHYROIDISM Blood Disorders: MDS Cancer(s): basal cell carcinoma, MDS FREELANCE DATA ENTRY/Reproductive: HYSTERECTOMY Surgical History Pertinent Surgical History: appendectomy, hysterectomy Family History Relations & Conditions If Any: MOTHER FH: diabetes in FH: hypertension FATHER Parkinsonism Psychosocial History Where Do You Live? Home Who Do You Live With? 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 Ambulation: walker IADLs Independent: finances. Needs Assist: shopping, housework, food prep. Review of Systems Review of Systems Constitutional: Reports: malaise, weakness, unexplained weight loss. Denies: chills, fever. EENTM: Denies: no symptoms. Cardiovascular: Denies: chest pain, edema, peripheral edema, syncope. Respiratory: Denies: cough, short of breath. GI: Reports: bloating, constipation, diarrhea. Denies: abdominal pain, distention, bloody stool, vomiting. Genitourinary: Denies: no symptoms. Musculoskeletal: Reports: back pain, muscle pain, muscle stiffness. Skin: Denies: no symptoms. Exam & Diagnostic Data Vital Signs and I&O Vital Signs Date Time Temp Pulse Resp B/P B/P Pulse O2 O2 Flow FiO2 Mean Ox Delivery Rate 04/18 0617 63 211/85 04/18 0540 60 226/77 04/18 0534 98.9 60 18 230/60 96 Room Air Room Air 04/18 0509 97.3 62 16 200/72 96 Room Air 04/18 0345 190/64 04/18 0238 98.0 58 16 220/70 04/18 0207 58 16 220/70 97 Room Air 04/17 2303 98.0 58 16 188/81 96 Room Air 04/17 2146 98.0 60 16 186/81 95 Room Air 04/17 2142 98.0 66 18 206/88 95 Room Air 04/17 2140 98.0 66 18 206/88 04/17 2101 98.0 75 18 208/78 95 Room Air 04/17 1932 98.0 78 20 202/88 94 Room Air 04/17 1914 98.0 74 18 202/88 04/17 1849 98.0 65 18 216/84 04/17 1805 98.0 65 18 216/ 97 Room Air 04/17 1441 97.6 88 18 166/80 97 Room Air Intake & Output 04/18 1600 04/18 0800 04/18 0000 04/17 1600 04/17 0800 04/17 0000 Intake Total 0 1000 Output Total 0 Balance 0 1000 Intake, IV 1000 Intake, Oral 0 Output, Urine 0 Patient 101 lb 110 lb Weight Weight Bed scale Measurement Method Physical Exam: Patient lying in bed, frail, appears dry with cracked lips family not presents but she lives with her daughter who gave most of her history yesterday. All history for this exam is abtained by the patient. She has no complaints of abdominal pain HEENT -dry cracked lips, NPO Neck - supple NT AROM Chest -CTA symmetric, no rales ronchi or wheeze Abdomen -soft with mild distention, NONtender to palpation through out no guarding or rebound, pos BS lumbar nonspecific tenderness -bilateral lower extremities- motor 5/5 sensory intact, no edema Physical Exam General Appearance: cachetic, thin Admission Lab Results I reviewed the following labs: Laboratory Tests 04/18 04/18 0610 0213 Chemistry Sodium (137 - 145 mmol/L) 137 Potassium (3.5 - 5.1 mmol/L) 4.0 Chloride (98 - 107 mmol/L) 101 Carbon Dioxide (22 - 30 mmol/L) 23 Anion Gap (5 - 16) 13 BUN (7 - 17 mg/dL) 17 Creatinine (0.5 - 1.0 mg/dL) 1.3 H Estimated GFR (>60 ml/min) 39 L BUN/Creatinine Ratio (7 - 25 %) 13.1 Troponin I (< 0.11 ng/ml) 0.01 TSH (0.270 - 4.200 uIU/mL) 6.790 H Free T4 (0.85 - 1.93 ng/dL) 1.79 Hematology CBC w Diff NO MAN DIFF REQ WBC (4.8 - 10.8 /CUMM) 2.1 L RBC (4.20 - 5.40 /CUMM) 2.97 L Hgb (12.0 - 16.0 G/DL) 10.4 L Hct (37 - 47 %) 30.8 L MCV (81.0 - 99.0 FL) 103.7 H MCH (27.0 - 31.0 PG) 35.2 H MCHC (33.0 - 37.0 G/DL) 33.9 RDW (11.5 - 14.5 %) 14.3 Plt Count (130 - 400 /CUMM) 116 L MPV (7.4 - 10.4 FL) 9.2 Gran % (42.2 - 75.2 %) 62.2 Lymphocytes % (20.5 - 51.1 %) 31.8 Monocytes % (1.7 - 9.3 %) 4.4 Eosinophils % (0 - 5 %) 0.5 Basophils % (0.0 - 2.0 %) 1.1 Absolute Granulocytes (1.4 - 6.5 /CUMM) 1.3 L Absolute Lymphocytes (1.2 - 3.4 /CUMM) 0.7 L Absolute Monocytes (0.10 - 0.60 /CUMM) 0.1 Absolute Eosinophils (0.0 - 0.7 /CUMM) 0 Absolute Basophils (0.0 - 0.2 /CUMM) 0 04/17 04/17 8426 4542 Chemistry Lactic Acid Cancelled Urines Urine Color (YEL,AMB,STR) YEL Urine Clarity (CLEAR) CLEAR Urine pH (5.0 - 8.0) 7.0 Ur Specific [place] (1.001 - 1.035) <= 1.005 Urine Protein (NEG,<30 MG/DL) NEG Urine Ketones (NEG) NEG Urine Nitrite (NEG) NEG Urine Bilirubin (NEG) NEG Urine Urobilinogen (0.1 - 1.0 EU/dl) 0.2 Ur Leukocyte Esterase (NEG) NEG Ur Microscopic EXAM NOT REQUIRED Urine Hemoglobin (NEG) NEG Urine Glucose (N MG/DL) NEG 04/17 1613 Chemistry Sodium (137 - 145 mmol/L) 137 Potassium (3.5 - 5.1 mmol/L) 4.5 Chloride (98 - 107 mmol/L) 101 Carbon Dioxide (22 - 30 mmol/L) 27 Anion Gap (5 - 16) 10 BUN (7 - 17 mg/dL) 21 H Creatinine (0.5 - 1.0 mg/dL) 1.5 H Estimated GFR (>60 ml/min) 33 L BUN/Creatinine Ratio (7 - 25 %) 14.0 Glucose (65 - 99 mg/dL) 104 H Lactic Acid (0.7 - 2.1 mmol/L) 0.6 L Calcium (8.4 - 10.2 mg/dL) 9.3 Total Bilirubin (0.2 - 1.3 mg/dL) 0.5 AST (14 - 36 U/L) 24 ALT (9 - 52 U/L) 25 Alkaline Phosphatase (<127 U/L) 90 Troponin I (< 0.11 ng/ml) < 0.01 Total Protein (6.3 - 8.2 g/dL) 7.3 Albumin (3.5 - 5.0 g/dL) 4.0 Globulin (1.9 - 4.2 gm/dL) 3.3 Albumin/Globulin Ratio (1.1 - 2.2 %) 1.2 Lipase (23 - 300 U/L) 288 Hematology CBC w Diff NO MAN DIFF REQ WBC (4.8 - 10.8 /CUMM) 2.2 L RBC (4.20 - 5.40 /CUMM) 2.95 L Hgb (12.0 - 16.0 G/DL) 10.4 L Hct (37 - 47 %) 30.5 L MCV (81.0 - 99.0 FL) 103.2 H MCH (27.0 - 31.0 PG) 35.4 H MCHC (33.0 - 37.0 G/DL) 34.3 RDW (11.5 - 14.5 %) 13.6 Plt Count (130 - 400 /CUMM) 121 L MPV (7.4 - 10.4 FL) 9.1 Gran % (42.2 - 75.2 %) 67.1 Lymphocytes % (20.5 - 51.1 %) 28.0 Monocytes % (1.7 - 9.3 %) 3.8 Eosinophils % (0 - 5 %) 0.5 Basophils % (0.0 - 2.0 %) 0.6 Absolute Granulocytes (1.4 - 6.5 /CUMM) 1.5 Absolute Lymphocytes (1.2 - 3.4 /CUMM) 0.6 L Absolute Monocytes (0.10 - 0.60 /CUMM) 0.1 Absolute Eosinophils (0.0 - 0.7 /CUMM) 0 Absolute Basophils (0.0 - 0.2 /CUMM) 0 CT scan 1.Diffusely dilated small bowel loops, difficult to assess for a transition zone given the lack of oral contrast, crowding of bowel loops and paucity of peritoneal fat. This is suggestive of an ILEUS VERSUS EARLY OR PARTIAL SMALL BOWEL OBSTRUCTION. The LEFT side of the colon and descending colon and rectum are collapsed. Clinical correlation recommended. No free air. 2. Heavy vascular calcification. 3. Compression fractures of all lumbar vertebrae. 4. Other findings include multiple calcified splenic granulomas, distended urinary bladder, bilateral humeral prostheses, Assessment/Plan Assessment/Plan 1. Hypertensive urgency 2. Ileus 3. Back pain 4. Myelodysplastic syndrome 5. Underweight Plan - ileus -most likely as a reult of taking laxatixes. She reports no nausea, vomiting or abdominal pain. CX stool for C-diff if indicated. Bowel rest and slowly advance diet starting with clears. Consider abdominal binder for lumbar compression fractures and early ambulation. Problem List: 1. Diarrhea 2. Back pain 3. Malnutrition Consult Acknowledgment - Thank you for your consult request. Raz Harley DO 04/19/18 1531: Assessment/Plan Consult Acknowledgment - Thank you for your consult request. Attending MD Review Statement Attending Statement Attending MD Statement: examined this patient, discuss w/resident/PA/BULWARK CARPENTER, agreed w/resident/PA/BULWARK CARPENTER, reviewed EMR data (avail), reviewed images Attending Assessment/Plan: Patient seen and examined, agree with above. Patient with recent diarrhea due to laxatives and gas pain. NO N/V, has been eating. Afebrile elevated BP on admission. Abd-softly distended. CT scan ileus vs PSBO. Given history of diarrhea the Dx of obstruction is unlikely. If clinical concern for SBO would do a contrast study (X-ray vs CT). No acute surgical intervention at this time. Please reconsult as needed.
--- NOTE | 2018-04-18 09:01 | Cons- CRCU ---
General Information and HPI Consulting Request Date of Consult: 04/18/18 Requested By: Primary team History of Present Illness: Ms. Glez is an 87-year-old female with past medical history of hypertension, hyperlipidemia, anxiety, hypothyroidism, and myelodysplastic syndrome who presents with diarrhea. History is obtained from patient and her son Joao and [id number] body. They note that for the past month she is complaining of back pain, constipation, and diarrhea. The patient has been treating with Metamucil and Fleet enemas. She has had no bloody diarrhea and no recent antibiotic treatment. She does have a history of C. difficile. She also reports weakness and anxiety. The patient was in the ER 3 weeks ago for the similar complaints. She has had decreased p.o. intake. She did have a hysterectomy many years ago. Allergies/Medications Allergies: Coded Allergies: No Known Allergies (04/11/17) Home Med List: Amiodarone HCl 100 MG TABLET 1 TAB PO DAILY HEART (Reported) Atorvastatin Calcium 10 MG TABLET 1 TAB PO DAILY CHOLESTEROL (Reported) Dorzolamide HCl/Timolol Maleat (Dorzolamide-Timolol Eye Drops) 22.3 MG-6.8 MG/ML DROPS 1 GTT OPH BID BOTH EYES (Reported) Hydralazine HCl 25 MG TABLET 2 TAB PO TID HIGH BP Levothyroxine Sodium (Levoxyl) 50 MCG TABLET 1 TAB PO DAILY thyoirds ( Reported) Lidocaine (Lidoderm) 5 % ADH..PATCH 1 PAT TOP DAILY COMPRESSION FRACTURE may wear up to 12 hours Lisinopril 20 MG TABLET 2 TAB PO DAILY high bp Sertraline HCl 50 MG TABLET 1 TAB PO DAILY MENTAL HEALTH (Reported) Review of Systems Review of Systems Constitutional: Reports: see HPI. 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 Home Who Do You Live With? child, lives with her daughter Services at Home: Home Health Aide Primary Language: Maori Smoking Status: Never Smoked Functional Ability ADLs Independent: dressing, eating, toileting, bathing. Ambulation: walker IADLs Independent: finances. Needs Assist: shopping, housework, food prep. Exam & Diagnostic Data Last 24 Hrs of Vital Signs/I&O Vital Signs Date Time Temp Pulse Resp B/P B/P Pulse O2 O2 Flow FiO2 Mean Ox Delivery Rate 04/18 1035 170/80 04/18 0848 65 230/80 04/18 0848 65 230/80 04/18 0847 65 230/80 04/18 0800 98.3 65 18 230/80 97 Room Air 04/18 0617 63 211/85 04/18 0540 60 226/77 04/18 0534 98.9 60 18 230/60 96 Room Air Room Air 04/18 0509 97.3 62 16 200/72 96 Room Air 04/18 0345 190/64 04/18 0238 98.0 58 16 220/70 04/18 0207 58 16 220/70 97 Room Air 04/17 2303 98.0 58 16 188/81 96 Room Air 04/17 2146 98.0 60 16 186/81 95 Room Air 04/17 2142 98.0 66 18 206/88 95 Room Air 04/17 2140 98.0 66 18 206/88 04/17 2101 98.0 75 18 208/78 95 Room Air 04/17 1932 98.0 78 20 202/88 94 Room Air 04/17 1914 98.0 74 18 202/88 04/17 1849 98.0 65 18 216/84 04/17 1805 98.0 65 18 216/ 97 Room Air 04/17 1441 97.6 88 18 166/80 97 Room Air Intake & Output 04/18 1600 04/18 0800 04/18 0000 Intake Total 0 1000 Output Total 0 Balance 0 1000 Intake, IV 1000 Intake, Oral 0 Output, Urine 0 Patient 101 lb Weight Weight Bed scale Measurement Method Physical Exam General Appearance: no apparent distress, alert, awake, thin Eyes: Bilateral: other (L eye BCC). Respiratory: normal breath sounds Cardiovascular: regular rate/rhythm Gastrointestinal: normal bowel sounds, soft, no organomegaly Extremities: no LE edema, 2+ radial pulses Last 48 Hrs of Labs/Wally: Laboratory Tests 04/18/18 0610: Anion Gap 13, Estimated GFR 39 L, BUN/Creatinine Ratio 13.1, CBC w Diff NO MAN DIFF REQ, RBC 2.97 L, MCV 103.7 H, MCH 35.2 H, MCHC 33.9, RDW 14.3, MPV 9.2, Gran % 62.2, Lymphocytes % 31.8, Monocytes % 4.4, Eosinophils % 0.5, Basophils % 1.1, Absolute Granulocytes 1.3 L, Absolute Lymphocytes 0.7 L, Absolute Monocytes 0.1, Absolute Eosinophils 0, Absolute Basophils 0 04/18/18 0213: Troponin I 0.01, TSH 6.790 H, Free T4 1.79 04/17/18 2156: Urine Color YEL, Urine Clarity CLEAR, Urine pH 7.0, Ur Specific [place] <= 1.005 , Urine Protein NEG, Urine Ketones NEG, Urine Nitrite NEG, Urine Bilirubin NEG, Urine Urobilinogen 0.2, Ur Leukocyte Esterase NEG, Ur Microscopic EXAM NOT REQUIRED, Urine Hemoglobin NEG, Urine Glucose NEG 04/17/18 1852: Lactic Acid Cancelled 04/17/18 1613: Anion Gap 10, Estimated GFR 33 L, BUN/Creatinine Ratio 14.0, Glucose 104 H, Lactic Acid 0.6 L, Calcium 9.3, Total Bilirubin 0.5, AST 24, ALT 25, Alkaline Phosphatase 90, Troponin I < 0.01, Total Protein 7.3, Albumin 4.0, Globulin 3.3, Albumin/Globulin Ratio 1.2, Lipase 288, CBC w Diff NO MAN DIFF REQ, RBC 2.95 L, MCV 103.2 H, MCH 35.4 H, MCHC 34.3, RDW 13.6, MPV 9.1, Gran % 67.1, Lymphocytes % 28.0, Monocytes % 3.8, Eosinophils % 0.5, Basophils % 0.6, Absolute Granulocytes 1.5, Absolute Lymphocytes 0.6 L, Absolute Monocytes 0.1, Absolute Eosinophils 0, Absolute Basophils 0 Assessment/Plan CRCU Impression/Plan: A: 87 years old lady who is presenting with constipation and diarrhea without evidence of recent use of antibiotic and diarrhea that is not foul-smelling following using laxatives. She has evidence of ileus on imaging but has no abdominal pain and has been opening bowels without any nausea or vomiting. She was found to be hypertensive with systolic going to 200s and required several rounds of IV blood pressure medications. 1. Hypertensive urgency ?pain induced ?anxiety 2. Ileus vs partial SBO SBO seems less likely as patient has no N/V and is having diarrhea 3. Paroxysmal Afib 4. Chronic back pain compression fracture 5. CKD stable 6. History of MDS with pancytopenia P: #Hypertensive urgency ?pain induced ?anxiety Patient missed her afternoon meds. Home meds restarted and BP improving Free t4 normal, TSH elevated Trops <.01, .01 -f/u echo -f/u cardiology consult -cont hydralazine, lisinopril #Ileus vs partial SBO SBO seems less likely as patient has no N/V and is having diarrhea Ct abd : Diffusely dilated small bowel loops, difficult to assess for a transition zone given the lack of oral contrast, crowding of bowel loops and paucity of peritoneal fat. Suggestive of an ILEUS VERSUS EARLY OR PARTIAL SMALL BOWEL OBSTRUCTION. The LEFT side of the colon and descending colon and rectum are collapsed. -no longer having diarrhea. obtain cdiff and stool cultures if she has diarrhea -serial abd exam -seen by surgical PA who recommends conservative management -RESTART HOME MEDS ONCE TOLERATING PO ADEQUATELY. -starting on clear liquid diet -avoid opiates #Paroxysmal Afib -cont amiodarone #Chronic back pain CT: Compression fractures of all lumbar vertebrae. -consider abdominal binder for lumbar compression fractures -cont pain control with lidocaine patch, tylenol #CKD stable -avoid NSAIDS #History of MDS with pancytopenia -monitor for fevers/oppurtunistic infxn #multiple calcified splenic granulomas -found on CT scan, outpatitent follow up #Chronic medical problems: glaucoma, mental health -cont timolol,dorzolomide, levothyroxine, sertraline #DNR DNI #FULL CODE #DVT ppx ALPS for thrombocytopenia Consult Acknowledgment - Thank you for your consult request.
[2018-04-18 10:35] VITALS: BP 170/80
--- NOTE | 2018-04-18 12:13 | PN- Att Addend ---
Attending Addendum Attending Brief Note 87 F with PMH significant for HTN, CKD, Cdiff colitis, paroxysmal Afib not on any anticoagulants ( risk of bleeding,not on any asa as recommended by his pocket operator, Robby Ruiz for his continuous epistasix) , MDS ( follows up with oncologist/mechanical manufacturing technician, Dr. Herrera), is brought in for evaluation of diarrhea and back pain. Patient has a h/o chronic compression fractures and was seen in the ER on March 28 for ongoing back pain for which she was prescribed tylenol with codeine and lidoderm patch. No hx of recent falls. She reports being intermittently constipated since she was started on tylenol+ codeine, with bloating sensation and abdominal discomfort. She used Linzess ( prescribed by PCP) 2 days ago, and started having 2-3 episodes of nonbloody diarrhea for past 2 days. No further episodes of diarrhea for the last one day. Her BP was also found to be elevated on admistion to 216/84 so admitted for hypertensive urgency with no and organ damage likely in the setting of not taking/noncompliant his meds, anxiety, whitecoat hypertension Cardiology consult Echo Close blood pressure monitoring Optimizing his blood pressure medications Surgical consult appreciated who agrees with the conservative management with IV fluids, clear liquids and advancing the diet as tolerable Continue the rest of her home medications, amiodarone, hydralazine, lisinopril PT evaluation Pain control stool studies if patient has any more episodes of diarrhea Plan discussed in detail with the patient and family members
--- NOTE | 2018-04-18 15:16 | Cons- Cardiology ---
General Information and HPI Consulting Request Date of Consult: 04/18/18 Requested By: Jhonny CHA,Dominga History of Present Illness: Ms. Glez is an 87 year old female with past medical history of hypertension, hyperlipidemia and myelodysplastic syndrome who presents with diarrhea. She was found to be severely hypertensive upon admission. Over the past month this patient has complained of back pain, constipation, and diarrhea. She otherwise has no complaints and denies chest discomfort, shortness of breath, lightheadedness or palpitations. Allergies/Medications Allergies: Coded Allergies: No Known Allergies (04/11/17) Home Med List: Amiodarone HCl 100 MG TABLET 1 TAB PO DAILY HEART (Reported) Atorvastatin Calcium 10 MG TABLET 1 TAB PO DAILY CHOLESTEROL (Reported) Dorzolamide HCl/Timolol Maleat (Dorzolamide-Timolol Eye Drops) 22.3 MG-6.8 MG/ML DROPS 1 GTT OPH BID BOTH EYES (Reported) Hydralazine HCl 25 MG TABLET 2 TAB PO TID HIGH BP Levothyroxine Sodium (Levoxyl) 50 MCG TABLET 1 TAB PO DAILY thyoirds ( Reported) Lidocaine (Lidoderm) 5 % ADH..PATCH 1 PAT TOP DAILY COMPRESSION FRACTURE may wear up to 12 hours Lisinopril 20 MG TABLET 2 TAB PO DAILY high bp Sertraline HCl 50 MG TABLET 1 TAB PO DAILY MENTAL HEALTH (Reported) Review of Systems Review of Systems: A review of systems is unremarkable. Past History Travel History Traveled to [place] past 21 day No Medical History Blood Transfusion Hx: Yes Neurological: NONE EENT: NONE Cardiovascular: hypertension, HYPERCHOLESTEROLEMIA ARRHYTHMIA Respiratory: NONE Gastrointestinal: NONE Hepatic: NONE Renal: NONE Musculoskeletal: NONE Psychiatric: anxiety Endocrine: HYPOTHYROIDISM Blood Disorders: MDS Cancer(s): basal cell carcinoma, MDS LEVI MAKER/Reproductive: HYSTERECTOMY Surgical History Surgical History: appendectomy, hysterectomy Family History Relations & Conditions If Any: MOTHER FH: diabetes in FH: hypertension FATHER Parkinsonism Psychosocial History Where Do You Live? Home Who Do You Live With? child, lives with her daughter Services at Home: Home Health Aide Primary Language: Bengali Smoking Status: Never Smoked Functional Ability ADLs Independent: dressing, eating, toileting, bathing. Ambulation: walker IADLs Independent: finances. Needs Assist: shopping, housework, food prep. Exam & Diagnostic Data Vital Signs and I&O Vital Signs Date Time Temp Pulse Resp B/P B/P Pulse O2 O2 Flow FiO2 Mean Ox Delivery Rate 04/18 2113 67 214/89 04/18 1600 98.1 68 20 168/70 96 Room Air 04/18 1533 68 168/70 04/18 1035 170/80 04/18 0848 65 230/80 04/18 0848 65 230/80 04/18 0847 65 230/80 04/18 0800 98.3 65 18 230/80 97 Room Air 04/18 0617 63 211/85 04/18 0540 60 226/77 04/18 0534 98.9 60 18 230/60 96 Room Air Room Air 04/18 0509 97.3 62 16 200/72 96 Room Air 04/18 0345 190/64 04/18 0238 98.0 58 16 220/70 04/18 0207 58 16 220/70 97 Room Air 04/17 2303 98.0 58 16 188/81 96 Room Air 04/17 2146 98.0 60 16 186/81 95 Room Air 04/17 2142 98.0 66 18 206/88 95 Room Air 04/17 2140 98.0 66 18 206/88 Intake & Output 04/18 1600 04/18 0800 04/18 0000 04/17 1600 04/17 0800 04/17 0000 Intake Total 480 0 1000 Output Total 0 Balance 480 0 1000 Intake, IV 0 1000 Intake, Oral 480 0 Number 0 Bowel Movements Output, Urine 0 Patient 101 lb 101 lb 110 lb Weight Weight Bed scale Measurement Method Physical Exam: General: WD/WN female in NAD; alert and oriented x 3 HEENT: NC/AT,PERRL EOMI Neck: no JVD, no carotid bruit Heart: RRR w/o murmur Lungs: clear bilaterally Abdomen: soft, NT, +ve bowel sounds Extremities: no edema Assessment/Plan Assessment/Plan * This patient carries a questionable history of paroxysmal atrial fibrillation that is being treated with Amiodarone. Her echocardiogram shows a normal EF of 60% with normal size left atrium. In the absence of any definite diagnosis of atrial fibrillation chronic anticoagulation is not necessary. * The patient is severely hypertensive. Begin Coreg 6.25mg BID and Nifedipine ER 30mg daily. Continue hydralazine and Lisinopril. She should be on a low sodium diet. We will increase nifedipine as needed. Consult Acknowledgment - Thank you for your consult request.
[2018-04-18 16:00] VITALS: BP 168/70
[2018-04-18 23:00] VITALS: BP 189/77
[2018-04-19] VITALS: BP 170/74
[2018-04-19 05:18] LABS: ABSOLUTE BASOPHIL COUNT 0 /CUMM (0.0-0.2); ABSOLUTE EOSINOPHIL COUNT 0 /CUMM (0.0-0.7); ABSOLUTE GRANULOCYTE CT 1.2 /CUMM (1.4-6.5); ABSOLUTE LYMPH COUNT 0.6 /CUMM (1.2-3.4); ABSOLUTE MONOCYTE COUNT 0.1 /CUMM (0.10-0.60); BASOPHIL % 1.5 % (0.0-2.0); GRANULOCYTE % 61.9 % (42.2-75.2); HEMATOCRIT 28.9 % (37-47); MEAN CORPUSCULAR HGB 35.6 PG (27.0-31.0); MEAN CORPUSCULAR HGB CONC 34.3 G/DL (33.0-37.0); MEAN CORPUSCULAR VOLUME 103.8 FL (81.0-99.0); MEAN PLATELET VOLUME 9.9 FL (7.4-10.4); PLATELET COUNT 112 /CUMM (130-400); RBC DISTRIBUTION WIDTH 14.1 % (11.5-14.5); RED BLOOD CELL CT 2.78 /CUMM (4.20-5.40); WHITE BLOOD CELL COUNT 1.9 /CUMM (4.8-10.8)
--- NOTE | 2018-04-19 07:48 | Transfer of Care Summary ---
Hospital Course Course Hospital Course: A: 87 yo F with h/o HTN, hypothyroidism, CKD stage 3, compression fracture with chronic back pain, Cdiff colitis, paroxysmal Afib, MDS, is brought in for evaluation of diarrhea and back pain without evidence of recent use of antibiotic and diarrhea found to have ileus on imaging and found to be in hypertensive urgency possible due to pain induced vs missing her medications. 1. Hypertensive urgency ?pain induced ?anxiety ?Missed medications 2. Ileus vs partial SBO SBO seems less likely as patient has no N/V and is having diarrhea 3. Paroxysmal Afib 4. Chronic back pain compression fracture 5. CKD stable 6. History of MDS with pancytopenia P: #Hypertensive urgency ?pain induced ?anxiety Patient missed her afternoon meds. Possibly pain/anxiety induced induced? In the ED was given hydralazine 25mg x1, 10mg x3 labetalol 10mg x1 in the ED and contninued to have systolic BP in the 230s. Was transferred to the ICU. Home meds were restarted and BP improved. Hydralazine increased to 50TID from home dose of 25 TID. Started on coreg and nifidepine per cardio. Free t4 normal, TSH elevated. Trops <.01, .01 -f/u echo -cont hydralazine, lisinopril, coreg and nifedipine -f/u cardiology recommendations #Loose stools with CT findings of ileus vs partial SBO She presented with diarrhea without N/V. Ct abd revealed findings uggestive of ileus vs partial SBO with the left side of the colon and descending colon and rectum collapsed. Unlikely this is SBO given her continued diarrhea. C.Diff and stool cultures were ordered. She was initially NPO but started on a clear liquid diet. She was seen by surgery who recommends conservative management at this time. Continues to be afebrile and no leukocytosis but she has a history of MDS with pancytopenia. -f/u cdiff and stool cultures for loose stools -starting on clear liquid diet, advance diet as tolerated -serial abd exam -f/u surgery recommendations -try to avoid opiates given age #Chronic back pain CT found compression fractures of all lumbar vertebrae. -consider abdominal binder for lumbar compression fractures -cont pain control with lidocaine patch, tylenol #nutrition Patient has lost weight due to decreased caloric intake -f/u nutrition consult. #Paroxysmal Afib -cont amiodarone #CKD stable -avoid NSAIDS #History of MDS with pancytopenia -monitor for fevers/oppurtunistic infxn #multiple calcified splenic granulomas -found on CT scan, outpatitent follow up #Chronic medical problems: glaucoma, mental health, basal cell carinoma -cont timolol,dorzolomide, levothyroxine, sertraline #DNR DNI #DVT ppx ALPS for thrombocytopenia #Clear liquid diet Assessment/Plan: See above
--- NOTE | 2018-04-19 07:48 | PN- Resident CRCU ---
Duane CHA,[facility] 04/19/18 0748: Subjective HPI/CRCU Issues: No acute events overnight. States that she had one losse bowel movement last night and one this morning Objective Vital Signs & I&O Last 8 Hrs of Vitals and I&O: Laboratory Tests 04/19/18 0405: Anion Gap 12, Estimated GFR 33 L, BUN/Creatinine Ratio 14.0, Magnesium 1.9, CBC w Diff NO MAN DIFF REQ, RBC 2.78 L, MCV 103.8 H, MCH 35.6 H, MCHC 34.3, RDW 14.1, MPV 9.9, Gran % 61.9, Lymphocytes % 31.4, Monocytes % 4.2, Eosinophils % 1.0, Basophils % 1.5, Absolute Granulocytes 1.2 L, Absolute Lymphocytes 0.6 L, Absolute Monocytes 0.1, Absolute Eosinophils 0, Absolute Basophils 0 Vital Signs Date Time Temp Pulse Resp B/P B/P Pulse O2 O2 Flow FiO2 Mean Ox Delivery Rate 04/19 1028 98.2 63 16 118/30 95 Room Air 04/19 0810 68 150/70 04/19 0810 68 150/70 04/19 0810 68 150/70 04/19 0810 68 150/70 04/19 0809 68 150/70 04/19 0800 99.1 68 20 150/70 97 Room Air Intake & Output 04/19 1600 Intake Total 720 Output Total Balance 720 Intake, Oral 720 Intake & Output 04/19 1600 Intake Total 720 Output Total Balance 720 Intake, Oral 720 Exam General Appearance: no apparent distress, alert, awake Head: L eye BCC Respiratory: normal breath sounds Cardiovascular: regular rate/rhythm Gastrointestinal: normal bowel sounds, soft, non-tender Extremities: no lower extremity edema, 2+ radial pulses Current Medications: Current Medications Sig/Maureen Start time Last Medication Dose Route Stop Time Status Admin Acetaminophen 1,000 MG Q6P PRN 04/18 0600 AC N/A 1 UNIT IV Amiodarone HCl 100 MG DAILY 04/18 0900 AC 04/19 PO 0810 Atorvastatin Calcium 10 MG 1700 04/18 1700 AC 04/18 PO 1628 Carvedilol 6.25 MG BID 04/19 0900 AC 04/19 PO 0810 Carvedilol 6.25 MG ONCE ONE 04/19 0015 CAN PO 04/19 0016 Dorzolamide HCl 1 GTT BID 04/18 0205 AC 04/19 OPH 0808 Hydralazine HCl 50 MG TID 04/18 0900 AC 04/19 PO 0810 Levothyroxine Sodium 0.05 MG DAILY AC 04/18 0700 AC 04/19 PO 0509 Lidocaine 1 PAT DAILY 04/18 0900 AC 04/18 TOP 0848 Lisinopril 40 MG DAILY 04/18 0900 AC 04/19 PO 0809 Nifedipine 30 MG DAILY 04/19 0900 AC 04/19 PO 0810 Sertraline HCl 50 MG DAILY 04/18 0900 AC 04/19 PO 0808 Timolol Maleate 1 GTT BID 04/18 0900 AC 04/19 OPH 0809 Impression/Plan Impression/Problem List Impression: A: 87 yo F with h/o HTN, hypothyroidism, CKD stage 3, compression fracture with chronic back pain, Cdiff colitis, paroxysmal Afib, MDS, is brought in for evaluation of diarrhea and back pain without evidence of recent use of antibiotic and diarrhea found to have ileus on imaging and found to be hypertensive urgency possible due to pain induced vs missing her medications. 1. Hypertensive urgency ?pain induced ?anxiety 2. Ileus vs partial SBO SBO seems less likely as patient has no N/V and is having diarrhea 3. Paroxysmal Afib 4. Chronic back pain compression fracture 5. CKD stable 6. History of MDS with pancytopenia P: #Hypertensive urgency ?pain induced ?anxiety Patient missed her afternoon meds. Possible pain induced? Was given hydralazine 25mg x1, 10mg x3 labetalol 10mg x1 in the ED and contninued to have systolic BP in the 230s. Home meds restarted and BP improving. Free t4 normal, TSH elevated Trops <.01, .01 -f/u echo -cont hydralazine, lisinopril -started on coreg and nifedipine per cardio -f/u cardiology recommendations #Ileus vs partial SBO SBO seems less likely as patient has no N/V and is having diarrhea Ct abd : Diffusely dilated small bowel loops, difficult to assess for a transition zone given the lack of oral contrast, crowding of bowel loops and paucity of peritoneal fat. Suggestive of an ILEUS VERSUS EARLY OR PARTIAL SMALL BOWEL OBSTRUCTION. The LEFT side of the colon and descending colon and rectum are collapsed. -f/u cdiff and stool cultures for loose stools -starting on clear liquid diet, advance diet as tolerated -serial abd exam -f/u surgery recommendations -try to avoid opiates given age #nutriton Patient has lost weight due to decreased caloric intake -f/u nutrition consult. #Paroxysmal Afib -cont amiodarone #Chronic back pain CT: Compression fractures of all lumbar vertebrae. -consider abdominal binder for lumbar compression fractures -cont pain control with lidocaine patch, tylenol #CKD stable -avoid NSAIDS #History of MDS with pancytopenia -monitor for fevers/oppurtunistic infxn #multiple calcified splenic granulomas -found on CT scan, outpatitent follow up #Chronic medical problems: glaucoma, mental health, basal cell carinoma -cont timolol,dorzolomide, levothyroxine, sertraline #DNR DNI #DVT ppx ALPS for thrombocytopenia #CLEAR liquid diet Problem List: 1. Hypertensive urgency 2. Ileus Pain Ratin Tomorrow's Labs & Rationales: icu cbc Plan DVT/Prophylaxis: ALPS - thrombocytopenia Jhonny CHA, [facility] 04/19/182151: Attending MD Review Statement Attending Sign Off Attending Cosign Statement: I have: examined this patient, reviewed [facility] EMR data, discussd w/resident/PA/ ENGINEERING PROGRAM MANAGER. Other Findings: Agree with above note. Patient appears well, in no distress. BP is well controlled with nifedipine, carvedilol, lisinopril and hydralazine. Follow Cardio recs. She denies any further nausea, vomiting or diarrhea. She is tolerating a full liquid diet. Will plan to advance to a regular diet in AM. Re-consult Surgery as needed. This was most likely an ileus, not SBO. Back pain is well controlled with tylenol and lidoderm patch. Patient is working with physical therapy, needs skill PT. Discuss with case management in AM and assess need for rehabilitation.
[2018-04-19 08:00] VITALS: BP 150/70
[2018-04-19 10:28] VITALS: BP 118/30
[2018-04-19 13:54] VITALS: BP 162/60
--- NOTE | 2018-04-19 14:30 | ECHOCARDIOGRAM REPORT ---
BEKAH GREENBERG Age: 87 : 1930 Gender: F Exam Date: 04/18/2018 16:06 Exam Location: [facility] Ht (in): 67 Wt (lb): 101 BSA: 1.45 BP: 170 / 80 Ordering Physician: Konrad Snow MD Referring Physician: Robby Napier MD Technologist: Isidoro Rodriguez RUST Room Number: 110-01 Indications: HYPERTENSION Rhythm: Sinus Technical Quality: good FINDINGS Left Ventricle Normal left ventricular size, wall thickness and systolic function with no obvious regional wall motion abnormalities. Diastolic fillin pattern is consistent with impaired LV relaxation. The ejection fraction is visually estimated at 60%. Right Ventricle The right ventricle is normal in size and function. Right Atrium The right atrium is normal in size. Left Atrium The left atrium is normal in size. The interatrial septum is intact. Mitral Valve The mitral valve is normal in structure and function. There is trace mitral regurgitation. Aortic Valve Structurally normal aortic valve without significant sclerosis or stenosis. There is no aortic regurgitation. Tricuspid Valve The tricuspid valve is normal in structure and function. There is trace tricuspid regurgitation. Pulmonary artery systolic pressure is normal. Pulmonic Valve Structurally normal pulmonic valve. There is no pulmonic regurgitation. Pericardium Normal pericardium without effusion. No pleural effusion. Great Vessels Normal aortic root dimension. The aortic arch and great vessels are well seen and are normal. CONCLUSIONS 1. Normal EF of 60% with impaired LV relaxation. 2. Trace mitral regurgitation. 3. Trace tricuspid regurgitation. Bradley Sanon M.D. (Electronically Signed) Final Date: 19 Apr 2018 14:30 MEASUREMENTS (Male / Female) Normal Values 2D ECHO LV Diastolic Diameter PLAX 3.9 cm 4.2 - 5.9 / 3.9 - 5.3 cm LV Systolic Diameter PLAX 2.5 cm 2.1 - 4.0 cm LV Fractional Shortening PLAX 35.9 % 25 - 46 % LV Ejection Fraction 2D Teich 66.1 % IVS Diastolic Thickness 1.1 cm LVPW Diastolic Thickness 0.9 cm LV Relative Wall Thickness 0.5 LVOT Diameter 2.0 cm Aortic Root Diameter 2.4 cm LA Systolic Diameter LX 3.5 cm 3.0 - 4.0 / 2.7 - 3.8 cm RVOT Diameter 2.3 cm 2.5 - 2.9 cm LA Volume 58.0 cm 18 - 58 / 22 - 52 cm RV Diastolic Area 4.1 cm 11 - 28 cm Ascending Aorta Diameter 3.0 cm DOPPLER AV Peak Velocity 141.0 cm/s AV Peak Gradient 8.0 mmHg AV Mean Velocity 101.0 cm/s AV Mean Gradient 5.0 mmHg AV Velocity Time Integral 29.2 cm LVOT Peak Velocity 96.7 cm/s LVOT Peak Gradient 3.7 mmHg LVOT Mean Velocity 60.1 cm/s LVOT Mean Gradient 2.0 mmHg LVOT Velocity Time Integral 20.7 cm LVOT Stroke Volume 65.0 cm AV Area Cont Eq vti 2.2 cm AV Area Cont Eq pk 2.2 cm MV Peak Velocity 112.0 cm/s MV Peak Gradient 5.0 mmHg MV Mean Velocity 71.1 cm/s MV Mean Gradient 2.0 mmHg Mitral E Point Velocity 47.9 cm/s Mitral A Point Velocity 104.0 cm/s Mitral E to A Ratio 0.5 MV PHT Velocity 54.4 cm/s MV Deceleration [place] 240.5 cm/s MV Pressure Half Time 67.9 ms MV Area PHT 3.2 cm MV Deceleration Time 246.0 ms TV Peak Velocity 261.0 cm/s TV Peak E Velocity 31.9 cm/s TV Peak A Velocity 57.6 cm/s TV E to A Ratio 0.6 TR Peak Velocity 267.0 cm/s TR Peak Gradient 28.5 mmHg Right Atrial Pressure 5.0 mmHg Pulmonary Artery Systolic Pressu 33.5 mmHg Right Ventricular Systolic Press 33.5 mmHg PV Peak Velocity 102.0 cm/s PV Peak Gradient 4.2 mmHg PV Mean Velocity 77.5 cm/s PV Mean Gradient 3.0 mmHg PV Velocity Time Integral 22.1 cm QpQs Shunt Ratio 1.2 PV Area Cont Eq vti 3.4 cm PV Area Cont Eq pk 3.3 cm LV E' Lateral Velocity 5.6 cm/s Mitral E to LV E' Lateral Ratio 8.6 LV E' Septal Velocity 5.7 cm/s Mitral E to LV E' Septal Ratio 8.5
[2018-04-19 17:46] VITALS: BP 140/54
--- NOTE | 2018-04-19 18:59 | PN- Cardiology ---
Subjective Subjective: Feels improved and no new complaints. In sinus rhythm on telemetry. Objective Vital Signs and I&Os Vital Signs Date Time Temp Pulse Resp B/P B/P Pulse O2 O2 Flow FiO2 Mean Ox Delivery Rate 04/19 1746 66 140/54 04/19 1402 59 162/60 04/19 1354 98.2 59 18 162/60 96 Room Air 04/19 1028 98.2 63 16 118/30 95 Room Air 04/19 0810 68 150/70 04/19 0810 68 150/70 04/19 0810 68 150/70 04/19 0810 68 150/70 04/19 0809 68 150/70 04/19 0800 99.1 68 20 150/70 97 Room Air 04/19 0000 170/74 04/18 2300 96.0 62 18 189/77 96 Room Air 04/18 2113 67 214/89 Intake & Output 04/19 1600 04/19 0800 04/19 0000 04/18 1600 04/18 0800 04/18 0000 Intake Total 1120 120 240 480 0 1000 Output Total 200 0 Balance 920 120 240 480 0 1000 Intake, IV 0 1000 Intake, Oral 1120 120 240 480 0 Number 0 Bowel Movements Output, Urine 200 0 Patient 101 lb 101 lb Weight Weight Bed scale Measurement Method Physical Exam: Well-developed well-nourished female in no acute distress. Vital signs: See above. Neck: no JVD, no carotid bruit Lungs: Clear to auscultation bilaterally. Heart: RRR w/o murmur Heart: S1, S2 with no murmur, gallop, or rub. Abdomen: soft, nontender, positive bowel sounds Extremities: no edema Current Medications: Current Medications Sig/Maureen Start time Last Medication Dose Route Stop Time Status Admin Acetaminophen 1,000 MG Q6P PRN 04/18 06 AC N/A 1 UNIT IV Amiodarone HCl 100 MG DAILY 04/18 0900 AC 04/19 PO 0810 Atorvastatin Calcium 10 MG 1700 04/18 1700 AC 04/19 PO 1740 Carvedilol 6.25 MG BID 04/19 0900 AC 04/19 PO 0810 Carvedilol 6.25 MG ONCE ONE 04/19 0015 CAN PO 04/19 0016 Dorzolamide HCl 1 GTT BID 04/18 0205 AC 04/19 OPH 0808 Hydralazine HCl 50 MG TID 04/18 09 AC 04/19 PO 1402 Levothyroxine Sodium 0.05 MG DAILY AC 04/18 0700 AC 04/19 PO 0509 Lidocaine 1 PAT DAILY 04/18 09 AC 04/19 TOP 1457 Lisinopril 40 MG DAILY 04/18 09 AC 04/19 PO 0809 Nifedipine 30 MG DAILY 04/19 09 AC 04/19 PO 0810 Sertraline HCl 50 MG DAILY 04/18 900 AC 04/19 PO 0808 Timolol Maleate 1 GTT BID 04/18 900 AC 04/19 OPH 0809 Results Last 48 Hrs of Labs/Mics: Laboratory Tests 04/19/18 0405: Anion Gap 12, Estimated GFR 33 L, BUN/Creatinine Ratio 14.0, Magnesium 1.9, CBC w Diff NO MAN DIFF REQ, RBC 2.78 L, MCV 103.8 H, MCH 35.6 H, MCHC 34.3, RDW 14.1, MPV 9.9, Gran % 61.9, Lymphocytes % 31.4, Monocytes % 4.2, Eosinophils % 1.0, Basophils % 1.5, Absolute Granulocytes 1.2 L, Absolute Lymphocytes 0.6 L, Absolute Monocytes 0.1, Absolute Eosinophils 0, Absolute Basophils 0 04/18/18 0610: Anion Gap 13, Estimated GFR 39 L, BUN/Creatinine Ratio 13.1, CBC w Diff NO MAN DIFF REQ, RBC 2.97 L, MCV 103.7 H, MCH 35.2 H, MCHC 33.9, RDW 14.3, MPV 9.2, Gran % 62.2, Lymphocytes % 31.8, Monocytes % 4.4, Eosinophils % 0.5, Basophils % 1.1, Absolute Granulocytes 1.3 L, Absolute Lymphocytes 0.7 L, Absolute Monocytes 0.1, Absolute Eosinophils 0, Absolute Basophils 0 04/18/18 0213: Troponin I 0.01, TSH 6.790 H, Free T4 1.79 04/17/18 2156: Urine Color YEL, Urine Clarity CLEAR, Urine pH 7.0, Ur Specific Roland <= 1.005 , Urine Protein NEG, Urine Ketones NEG, Urine Nitrite NEG, Urine Bilirubin NEG, Urine Urobilinogen 0.2, Ur Leukocyte Esterase NEG, Ur Microscopic EXAM NOT REQUIRED, Urine Hemoglobin NEG, Urine Glucose NEG Microbiology 04/18 530 UPPER RESP: Surveillance Culture - COMP 04/18 530 GI: Surveillance Culture - COMP Assessment/Plan Assessment/Plan [id number] w/ hx HTN, CKD, HLD, hypothyroidism, MDS, & medical compliance issues who presented to the ED w/ diarrhea & who was discovered to have poorly controlled hypertension. Her blood pressure has improved on her present regimen and would maintain this for now. Agree with the recommendation to discontinue anticoagulation, unless there is documented proof of previous atrial fibrillation. This will be reviewed and further recommendations will follow. Continue DVT prophylaxis. Continue telemetry? Yes
[2018-04-19 22:31] VITALS: BP 157/70
[2018-04-20 06:54] VITALS: BP 140/64
--- NOTE | 2018-04-20 07:42 | PN- Housestaff ---
[facility] 04/20/18 0742: Subjective Follow-up For: Hypertensive urgency Back pain Diarrhea alternate with constipation Tele-Events Since Last Visit: NSR-SB HR 50s-60 with first degree heart block. no other event. Subjective: Afebrile, mildly hypertensive this morning, heart rate in 60s, and saturating well on room air. The patient is laying in bed looks relaxed and comfortable and denies any current active complaints. She tolerated full liquid. She denies nausea, vomiting, or diarrhea. Review of Systems Constitutional: Reports: see HPI. Objective Last 24 Hrs of Vital Signs/I&O Vital Signs Date Time Temp Pulse Resp B/P B/P Pulse O2 O2 Flow FiO2 Mean Ox Delivery Rate 04/20 0654 98.2 64 12 140/64 95 Room Air 04/19 2231 98.2 60 18 157/70 96 Room Air 04/19 2113 73 132/60 04/19 2113 73 132/60 04/19 1746 66 140/54 04/19 1402 59 162/60 04/19 1354 98.2 59 18 162/60 96 Room Air 04/19 1028 98.2 63 16 118/30 95 Room Air Intake & Output 04/20 1600 04/20 0800 04/20 0000 Intake Total 240 Output Total 100 Balance 140 Intake, Oral 240 Output, Urine 100 Patient 41.787 kg Weight Weight Bed scale Measurement Method Physical Exam General Appearance: Alert, Oriented X3, Cooperative, No Acute Distress Skin: No Rashes HEENT: Atraumatic, PERRLA, EOMI, Mucous Membr. moist/pink Neck: Supple, No JVD Cardiovascular: Regular Rate, Normal S1, Normal S2, No Murmurs Lungs: Clear to Auscultation, Normal Air Movement Abdomen: Normal Bowel Sounds, Soft, No Tenderness Neurological: Normal Speech Extremities: No Clubbing, No Cyanosis, No Edema Current Medications: Current Medications Sig/Maureen Start time Last Medication Dose Route Stop Time Status Admin Acetaminophen 1,000 MG Q6P PRN 04/18 06 AC N/A 1 UNIT IV Amiodarone HCl 100 MG DAILY 04/18 0900 AC 04/19 PO 0810 Atorvastatin Calcium 10 MG 1700 04/18 1700 AC 04/19 PO 1740 Carvedilol 6.25 MG BID 04/19 09 AC 04/19 PO 211 Dorzolamide HCl 1 GTT BID 04/18 0205 AC 04/19 OPH 0 Hydralazine HCl 50 MG TID 04/18 09 AC 04/19 PO 211 Levothyroxine Sodium 0.05 MG DAILY AC 04/18 0700 AC 04/20 PO 0518 Lidocaine 1 PAT DAILY 04/18 0900 AC 04/19 TOP 1457 Lisinopril 40 MG DAILY 04/18 0900 AC 04/19 PO 0809 Nifedipine 30 MG DAILY 04/19 0900 AC 04/19 PO 0810 Sertraline HCl 50 MG DAILY 04/18 0900 AC 04/19 PO 0808 Timolol Maleate 1 GTT BID 04/18 09 AC 04/19 OPH 2109 Last 24 Hrs of Lab/Wally Results Last 24 Hrs of Labs/Mics: Laboratory Tests 04/20/18 0625: Anion Gap 8, Estimated GFR 30 L, BUN/Creatinine Ratio 15.0, Magnesium 1.9, CBC w Diff NO MAN DIFF REQ, RBC 2.91 L, MCV 102.3 H, MCH 35.1 H, MCHC 34.3, RDW 13.9, MPV 9.7, Gran % 68.4, Lymphocytes % 26.0, Monocytes % 3.3, Eosinophils % 1.3, Basophils % 1.0, Absolute Granulocytes 1.4, Absolute Lymphocytes 0.5 L, Absolute Monocytes 0.1, Absolute Eosinophils 0, Absolute Basophils 0 Assessment/Plan Assessment: 87 yo F with h/o HTN, hypothyroidism, CKD stage 3, compression fracture with chronic back pain, MDS, is brought in for evaluation of diarrhea/constipation and back pain without evidence of recent use of antibiotic found to have ileus on imaging and found to be in hypertensive urgency. Plan #Hypertensive urgency * We will continue home dose of lisinopril and hydralazine * We will continue carvedilol and nifedipine that was added during this admission. * We will discuss with desk lieutenant the best antihypertensive medication for discharge #CT findings of ileus vs partial SBO * She tolerated full liquid * We would advance diet as tolerated * This finding possibly secondary to taking laxatixes * If developed nausea or vomiting we may repeat CT abdomen #Chronic back pain * CT found compression fractures of all lumbar vertebrae. * Control with lidocaine patch and tylenol PRN #Paroxysmal Afib * Cont amiodarone * DC anticoagulation given MDS and no documented A. fib #CKD stable * Currently on baseline range * We will avoid all nephrotoxic especially NSAID given the chronic back pain #History of MDS with pancytopenia * Wbc's improved today * We will continue to follow #multiple calcified splenic granulomas * found on CT scan, outpatitent follow up #Moderate protein calorie malnutrition: * We will follow inpatient restaurant culinary manager consult * we will instruct the patient to follow with restaurant culinary manager as an out-patientt #Chronic stable medical problems: * glaucoma, mental health, basal cell carinoma, and hypothyroidism * Continue timolol, levothyroxine, and sertraline #DNR DNI #DVT ppx ALPS for thrombocytopenia #Clear liquid diet Problem List: 1. Hypertensive urgency 2. Ileus Pain Ratin Pain Location: lower back Pain Goal: Remain pain free Pain Plan: lidoderm and acetaminophen Tomorrow's Labs & Rationales: BEP to follow renal function Rush CHA,Chasity 04/20/18 0950: Attending MD Review Statement Attending Statement Attending MD Statement: examined this patient, discuss w/resident/PA/MOTOR BIKE MECHANIC, agreed w/resident/PA/MOTOR BIKE MECHANIC, reviewed EMR data (avail), discussed with nursing, discussed with case mgmt, reviewed images Attending Assessment/Plan: Patient transferred from the ICU. She has underlying hypertension, hyperlipidemia and myelodysplastic syndrome and she came in with what was thought to be an ileus or a mild SBO and uncontrolled hypertension with a hypertensive urgency. She normally takes hydralazine and lisinopril as an outpatient. Coreg and nifedipine have been added to her medication regimen with good results. She has underlying CKD with a creatinine that ranges from 1.3- 1.8. 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 The plan is to have her work with PT, follow her blood pressure on the increased dose of the medication. Her echo shows an EF of 60%. If cleared by PT and will set her up with visiting nurse and likely discharge in a.m. to have her work with PT, follow her blood pressure on the increased dose of the medication. Her echo shows an EF of 60%. If cleared by PT and will set her up with visiting nurse and likely discharge in a.m.
[2018-04-20 07:57] LABS: ABSOLUTE BASOPHIL COUNT 0 /CUMM (0.0-0.2); ABSOLUTE EOSINOPHIL COUNT 0 /CUMM (0.0-0.7); ABSOLUTE GRANULOCYTE CT 1.4 /CUMM (1.4-6.5); ABSOLUTE LYMPH COUNT 0.5 /CUMM (1.2-3.4); ABSOLUTE MONOCYTE COUNT 0.1 /CUMM (0.10-0.60); EOSINOPHIL % 1.3 % (0-5); GRANULOCYTE % 68.4 % (42.2-75.2); HEMATOCRIT 29.7 % (37-47); MEAN CORPUSCULAR HGB 35.1 PG (27.0-31.0); MEAN CORPUSCULAR HGB CONC 34.3 G/DL (33.0-37.0); MEAN CORPUSCULAR VOLUME 102.3 FL (81.0-99.0); MEAN PLATELET VOLUME 9.7 FL (7.4-10.4); PLATELET COUNT 127 /CUMM (130-400); RBC DISTRIBUTION WIDTH 13.9 % (11.5-14.5); RED BLOOD CELL CT 2.91 /CUMM (4.20-5.40)
--- NOTE | 2018-04-20 12:07 | Event Note ---
Event Note Event Note: Around 10:45 the patient was working with PT when she suddenly became unresponsive. PT supported the patient, no fall or trauma was reported. Initial blood pressure was 58/30s, increased immediately after the patient was laid on the floor to 190s/90s. She was saturating upper 90s on 3 L of oxygen. fern picker showed heart rate in the 70s with first heart block and without arrhythmias.Patient regained consciousness within less than a minute but was complaining of nausea and had multiple episodes of nonbloody vomiting. She patient denies dizziness, palpitation, shortness breath prior to the event. No seizure activity, tongue biting, or loss of urine or bowel control during the event. She was alert and oriented after the event without confusion. The patient reports similar episodes in the past while she was shopping. She presented with urgent hypertension. At home she is on hydralazine and lisinopril. Nifedipine and carvedilol was added during this admission. The possible explanation is vasovagal attack given no prodromal symptom and history of similar episodes. Another possible explanation would be orthostatic hypotension especially after at the nifedipine to her antihypertensive regimen. Plan * Stat EKG to assess QT interval * IV Zofran if QT is not prolonged * Orthostatic check once the patient stable * We'll repeat CT abdomen if nausea and vomiting persist, given recent ileus on CT.
[2018-04-20 14:21] VITALS: BP 200/70
[2018-04-20 23:23] VITALS: BP 158/60
[2018-04-21 06:27] VITALS: BP 180/80
[2018-04-21 08:34] LABS: ABSOLUTE BASOPHIL COUNT 0 /CUMM (0.0-0.2); ABSOLUTE EOSINOPHIL COUNT 0 /CUMM (0.0-0.7); ABSOLUTE GRANULOCYTE CT 1.6 /CUMM (1.4-6.5); ABSOLUTE LYMPH COUNT 0.4 /CUMM (1.2-3.4); ABSOLUTE MONOCYTE COUNT 0.1 /CUMM (0.10-0.60); BASOPHIL % 0.6 % (0.0-2.0); EOSINOPHIL % 0.4 % (0-5); GRANULOCYTE % 74.8 % (42.2-75.2); HEMATOCRIT 30.2 % (37-47); MEAN CORPUSCULAR HGB 35.2 PG (27.0-31.0); MEAN CORPUSCULAR HGB CONC 33.6 G/DL (33.0-37.0); MEAN CORPUSCULAR VOLUME 104.7 FL (81.0-99.0); MEAN PLATELET VOLUME 10.1 FL (7.4-10.4); PLATELET COUNT 112 /CUMM (130-400); RBC DISTRIBUTION WIDTH 13.6 % (11.5-14.5); RED BLOOD CELL CT 2.88 /CUMM (4.20-5.40); WHITE BLOOD CELL COUNT 2.1 /CUMM (4.8-10.8)
--- NOTE | 2018-04-21 10:15 | PN- Att Addend ---
Attending Addendum Attending Brief Note Patient seen and examined with the entire team. Events from yesterday noted. Patient had a rapid response yesterday. She worked with PT, did a flight of stairs and when she came back and sat on the piano seat she had an episode of unresponsiveness. I think this was all vagally mediated but her pressure at that time was 70/50. At this point we have stopped the nifedipine. She remains on the hydralazine, lisinopril and Coreg for blood pressure control. We are advancing her diet to a regular diet. Because of the vagal episode and the vomiting yesterday she remained on a clear liquid. We can watch her pressure off the nifedipine, ambulate her and make sure she tolerates a diet. We'll also inform cardiology and if all okay than anticipated discharge in a.m.
--- NOTE | 2018-04-21 10:36 | PN- Housestaff ---
Subjective Follow-up For: Hypertensive urgency Back pain Diarrhea alternate with constipation Subjective: Afebrile, HR 60s-70s, sBP was 150s throughout the night but elevated to 180s this am. She is continued to saturating well on RA. The patient is laying in bed looks relaxed and comfortable and denies any current active complaints. She denies nausea, vomiting, or diarrhea. She would like to to try solid food. Review of Systems Constitutional: Reports: no symptoms, see HPI. Objective Last 24 Hrs of Vital Signs/I&O Vital Signs Date Time Temp Pulse Resp B/P B/P Pulse O2 O2 Flow FiO2 Mean Ox Delivery Rate 04/21 07 60 180/80 04/21 0738 60 180/80 04/21 0737 60 180/80 04/21 0737 60 180/80 04/21 0627 98.3 60 20 180/80 97 Room Air 04/20 2323 97.9 60 16 158/60 96 Nasal Cannula 04/20 2117 60 152/70 04/20 1600 95 Nasal 2.0L Cannula 04/20 1421 97.4 55 16 200/70 99 Nasal 3.0L Cannula 04/20 1419 52 200/70 Intake & Output 04/21 1600 04/21 0800 04/21 0000 Intake Total 200 Output Total 250 300 Balance -250 -100 Intake, Oral 200 Output, Urine 250 300 Patient 44.027 kg Weight Weight Bed scale Measurement Method Physical Exam General Appearance: Alert, Oriented X3, Cooperative, No Acute Distress HEENT: Atraumatic, PERRLA, EOMI, Mucous Membr. moist/pink Neck: Supple, No JVD Cardiovascular: Regular Rate, Normal S1, Normal S2, No Murmurs Lungs: Clear to Auscultation, Normal Air Movement Abdomen: Soft, No Tenderness Neurological: Normal Speech Extremities: No Clubbing, No Cyanosis, No Edema Current Medications: Current Medications Sig/Maureen Start time Last Medication Dose Route Stop Time Status Admin Acetaminophen 1,000 MG Q6P PRN 04/18 06 AC N/A 1 UNIT IV Amiodarone HCl 100 MG DAILY 04/18 09 AC 04/21 PO 0737 Atorvastatin Calcium 10 MG 1700 04/18 1700 AC 04/20 PO 1713 Carvedilol 6.25 MG BID 04/19 09 AC 04/21 PO 0738 Dorzolamide HCl 1 GTT BID 04/18 0205 AC 04/21 OPH 0737 Hydralazine HCl 50 MG TID 04/18 09 AC 04/21 PO 0737 Levothyroxine Sodium 0.05 MG DAILY AC 04/18 07 AC 04/21 PO 0608 Lidocaine 1 PAT 1900 04/20 1900 AC 04/20 TOP 1900 Lisinopril 40 MG DAILY 04/18 0900 AC 04/21 PO 0738 Nifedipine 30 MG DAILY 04/19 0900 DC 04/20 PO 0954 Sertraline HCl 50 MG DAILY 04/18 09 AC 04/21 PO 0737 Timolol Maleate 1 GTT BID 04/18 09 AC 04/21 OPH 0742 Last 24 Hrs of Lab/Wally Results Last 24 Hrs of Labs/Mics: Laboratory Tests 04/21/18626: Anion Gap 9, Estimated GFR 30 L, BUN/Creatinine Ratio 15.0, CBC w Diff NO MAN DIFF REQ, RBC 2.88 L, MCV 104.7 H, MCH 35.2 H, MCHC 33.6, RDW 13.6, MPV 10.1, Gran % 74.8, Lymphocytes % 21.3, Monocytes % 2.9, Eosinophils % 0.4, Basophils % 0.6, Absolute Granulocytes 1.6, Absolute Lymphocytes 0.4 L, Absolute Monocytes 0.1, Absolute Eosinophils 0, Absolute Basophils 0 Assessment/Plan Assessment: 87 yo F with h/o HTN, hypothyroidism, CKD stage 3, compression fracture with chronic back pain, MDS, is brought in for evaluation of diarrhea/constipation and back pain without evidence of recent use of antibiotic found to have ileus on imaging and found to be in hypertensive urgency. Plan #Hypertensive urgency * Continue lisinopril, hydralazine, and carvedilol * Nifedipine was DC'd secondary to orthostatic hypotension that led to near syncopal. * We will discuss with frame cleaner the best antihypertensive medication for discharge #CT findings of ileus vs partial SBO * She tolerated full liquid * We'll advanced diet to solid food * This finding possibly secondary to taking laxatixes #Chronic back pain * CT found compression fractures of all lumbar vertebrae. * Control with lidocaine patch and tylenol PRN #Paroxysmal Afib * Cont amiodarone * DC anticoagulation given MDS and no documented A. fib #CKD stable * Currently on baseline range(today is 1.6) * We will avoid all nephrotoxic especially NSAID given the chronic back pain #History of MDS with pancytopenia * Wbc's improved today, she is 2.1 * We will continue to follow here and instruct to follow as an out patinet #multiple calcified splenic granulomas * found on CT scan, outpatitent follow up #Moderate protein calorie malnutrition: * We will follow inpatient nursing home social worker consult * we will instruct the patient to follow with nursing home social worker as an out-patientt #Chronic stable medical problems: * glaucoma, mental health, basal cell carinoma, and hypothyroidism * Continue timolol, levothyroxine, and sertraline #DNR DNI #DVT ppx ALPS for thrombocytopenia #Clear liquid diet Problem List: 1. Hypertensive urgency 2. Ileus Pain Ratin Pain Location: back Pain Goal: Remain pain free Pain Plan: Tylenol and lidoderm Tomorrow's Labs & Rationales: none
--- NOTE | 2018-04-21 12:54 | Discharge Summary ---
Visit Information Visit Dates Admission Date: 04/18/18 Discharge Date: 04/24/18 Hospital Course Course Attending Physician: Rush CHA,Chasity Celeste Primary Care Physician: Keke Chamberlain MD Consulting Request: Consulting Specialty: Cardiology Hospital Course: 87 yo F with h/o HTN, hypothyroidism, CKD stage 3, compression fracture with chronic back pain, MDS, is brought in for evaluation of diarrhea/constipation and back pain without evidence of recent use of antibiotic found to have ileus on imaging and found to be in hypertensive urgency. Issues that was addressed during this admission #Recurrent syncopal/presyncopal in pt with hypertensive urgency The patient blood pressure was found to be elevated on admission up to 190s/100, she was continued on her home antihypertensive medication including lisinopril 40 mg and hydralazine 50 mg twice daily, she was started on nifedipine and carvedilol. The patient had 2 episodes of presyncopal, the first occurring while she was undergoing physical therapy and was associated with nausea/ vomiting, at that time the nifedipine was stopped. The second episode happened while she was straining to have a bowel movement and was associated with nausea. After which carvedilol was stopped. Cardiology suspect syncope to be as results of an alteration in autonomic activity and are most consistent with the vasodepressor type. We will discharge the patient on hydralazine and lisinopril. And instructed the patient to follow with core fitter within 1 week. As noted she has this tendency to have vasodepressive syncope. When she gets up from a lying or sitting position she should dangle her legs for a good 5 minutes. #Complaint of diarrhea alternating with constipation, CT findings of ileus vs partial SBO Initially she was kept n.p.o., surgery recommended no surgical interventions. Diet was advanced as tolerated. This finding most likely secondary to taking laxatixes #Chronic back pain CT found compression fractures of all lumbar vertebrae. Control with lidocaine patch and tylenol PRN #Paroxysmal Afib We continue amiodarone. She is not on anticoagulation given MDS, high fall and subsequent bleeding risk. #CKD stable Was at baseline on discharge, she should avoid all nephrotoxic especially NSAID. #History of MDS with pancytopenia Was stable during that admission, she was instructed to follow as an out patinet. #multiple calcified splenic granulomas Incidental finding on CT scan, she was instructed to follow-up as an outpatitent. #Moderate protein calorie malnutrition: The patient had a moderate protein calorie malnutrition, she was instructed to increase calories intake. She may benefit from Ensure as an output #Chronic stable medical problems: Including glaucoma, mental health, basal cell carinoma, and hypothyroidism. We continued timolol, levothyroxine, and sertraline. Again patient has labile, volatile hypertension, medication regimen changes should be minimum given her tendency to vasodepressive syncope. She needs close outpatient follow-up with Dr. Napier her core fitter. Allergies: Coded Allergies: No Known Allergies (04/11/17) Disposition Summary Disposition Principal Diagnosis: Hypertensive urgency Vasovagal attack - vasodepressive form of syncope Additional Diagnosis: Ileus Myelodysplastic syndrome Discharge Disposition: SNF Discharge Instructions General Discharge Information Code Status: Do Not Resucitate/Intubat Patient's Diet: Heart healthy diet Patient's Activity: As tolerated Follow-Up Instructions/Appts: Please follow-up with a primary care doctor within 1 week Please follow-up with core fitter within a week Medications at Discharge Discharge Medications: Continue taking these medications: Sertraline HCl (Sertraline HCl) 50 MG TABLET 1 Tablet ORAL DAILY Qty = 90 Comments: Last Taken: 04/24/18 Time: 9 AM Amiodarone HCl (Amiodarone HCl) 100 MG TABLET 1 Tablet ORAL DAILY Qty = 90 Comments: Last Taken: 04/24/18 Time: 9 AM Atorvastatin Calcium (Atorvastatin Calcium) 10 MG TABLET 1 Tablet ORAL DAILY Qty = 90 Comments: Last Taken: 04/23/18 Time: 6 PM Dorzolamide HCl/Timolol Maleat (Dorzolamide-Timolol Eye Drops) 22.3 MG-6.8 MG/ML DROPS 1 Drop In the eye TWICE DAILY Qty = 10 Comments: Last Taken: 04/24/18 Time: 9 AM Lisinopril (Lisinopril) 20 MG TABLET 2 Tablet ORAL DAILY Days = 30 Comments: Last Taken: 04/24/18 Time: 9 AM Lidocaine (Lidoderm) 5 % ADH..PATCH 1 Patch On the skin DAILY Qty = 30 Instructions: may wear up to 12 hours Comments: Last Taken: 04/23/18 Time: 7 PM Levothyroxine Sodium (Levoxyl) 50 MCG TABLET 1 Tablet ORAL DAILY Comments: Last Taken: 04/24/18 Time: 5 AM Start taking the following new medications: Hydralazine HCl (Hydralazine HCl) 50 MG TABLET 50 Milligram ORAL THREE TIMES DAILY Qty = 60 No Refills Comments: Last Taken: 04/24/18 Time: 9 AM Bisacodyl (Bisac-Evac) 10 MG SUPP.RECT 10 Milligram RECTALLY Every 12 hours as needed as needed for CONSTIPATION Qty = 30 No Refills Comments: Last Taken: 04/22/18 Time: 10 AM Sennosides/Docusate Sodium (Senna Plus Tablet) 8.6 MG-50 MG TABLET 1 Tablet ORAL TWICE DAILY Qty = 30 No Refills Comments: Last Taken: 04/24/18 Time: 9 AM Copies To: Quyen CHA,Robby [place]; [facility]intia CHA,Keke León
[2018-04-21 14:23] VITALS: BP 112/50
[2018-04-21 22:08] VITALS: BP 130/54
[2018-04-22 06:40] VITALS: BP 148/60
--- NOTE | 2018-04-22 08:17 | PN- Housestaff ---
See Addendum Subjective Follow-up For: Hypertensive urgency Back pain Diarrhea alternate with constipation Tele-Events Since Last Visit: Afebrile, HR 60s, blood pressure was in the normal range overnight and she saturating well on room air. The patient had another episode of presyncopal when she went to the bathroom around 10 AM. Blood pressure at that time was 190/70 which most likely secondary to the fall as it was normal just prior to the event. The monitor did not show arrhythmia before or during the event. The patient has mild nausea that started after the events. She denies any other current active complaints. Review of Systems Constitutional: Reports: see HPI. Objective Last 24 Hrs of Vital Signs/I&O Vital Signs Date Time Temp Pulse Resp B/P B/P Pulse O2 O2 Flow FiO2 Mean Ox Delivery Rate 04/22 0953 60 148/60 04/22 0953 60 148/60 04/22 0953 60 148/60 04/22 0953 60 148/60 04/22 0640 97.9 60 18 148/60 96 Room Air 04/21 2208 98.5 61 18 130/54 95 04/21 2150 88 138/54 04/21 2150 88 138/54 04/21 1423 97.6 53 16 112/50 94 Room Air 04/21 1401 112/50 Intake & Output 04/22 1600 04/22 0800 04/22 0000 Intake Total 300 160 Output Total 100 Balance 300 60 Intake, Oral 300 160 Output, Urine 100 Patient 42.241 kg Weight Physical Exam General Appearance: Alert, Oriented X3, Cooperative, No Acute Distress Skin: No Rashes HEENT: Atraumatic, PERRLA, EOMI, Mucous Membr. moist/pink Neck: Supple, No JVD Cardiovascular: Regular Rate, Normal S1, Normal S2, No Murmurs Lungs: Clear to Auscultation, Normal Air Movement Abdomen: Normal Bowel Sounds, Soft, No Tenderness Neurological: Normal Speech Extremities: No Clubbing, No Cyanosis, No Edema Current Medications: Current Medications Sig/Maureen Start time Last Medication Dose Route Stop Time Status Admin Acetaminophen 1,000 MG Q6P PRN 04/18 600 AC N/A 1 UNIT IV Amiodarone HCl 100 MG DAILY 04/18 09 AC 04/22 PO 0953 Atorvastatin Calcium 10 MG 1700 04/18 1700 AC 04/21 PO 1705 Bisacodyl 10 MG Q12P PRN 04/22 0915 AC 04/22 UT 0955 Carvedilol 6.25 MG BID 04/19 0900 DC 04/22 PO 0953 Dorzolamide HCl 1 GTT BID 04/18 0205 AC 04/22 OPH 0955 Hydralazine HCl 50 MG TID 04/18 0900 AC 04/22 PO 0953 Levothyroxine Sodium 0.05 MG DAILY AC 04/18 0700 AC 04/22 PO 0644 Lidocaine 1 PAT 1900 04/20 1900 AC 04/21 TOP 2148 Lisinopril 40 MG DAILY 04/18 0900 AC 04/22 PO 0953 Ondansetron HCl 4 MG ONCE ONE 04/22 1130 DC 04/22 IV 04/22 1131 1131 Patient Medication 1 ED ONE ONE 04/21 1630 DC 04/21 Teaching ED 04/21 1631 1705 Senna/Docusate Sodium 1 TAB BID 04/22 1000 AC 04/22 PO 0953 Sertraline HCl 50 MG DAILY 04/18 0900 AC 04/22 PO 0953 Timolol Maleate 1 GTT BID 04/18 0900 AC 04/22 OPH 0955 Assessment/Plan Assessment: 87 yo F with h/o HTN, hypothyroidism, CKD stage 3, compression fracture with chronic back pain, MDS, is brought in for evaluation of diarrhea/constipation and back pain without evidence of recent use of antibiotic found to have ileus on imaging and found to be in hypertensive urgency. Plan #Recurrent syncopal/presyncopal in pt with hypertensive urgency The patient's blood pressure was controlled overnight, however she started to have recurrent episodes of near syncopal with ambulation. The differential would be orthostatic hypotension or most likely a vasovagal attack. During the episode 2 days ago her blood pressure was initially 50/30 improved within few minutes to 190/90. Her blood pressure during the episode today was 190/70. During both episodes no arrhythmias or poses were recorded prior or during the episode. Also she had no reflux tachycardia even with low blood pressure. Given that she has a history of first-degree heart block and no reflux tachycardia we will DC carvedilol and watch her blood pressure. * Continue lisinopril, hydralazine * DC carvedilol * We will discuss with stenographer secretary the best antihypertensive medication for discharge * May benefit from short-term rehabilitation * May benefit from outpatient tilt table test #CT findings of ileus vs partial SBO * She tolerated solid diet. * This finding possibly secondary to taking laxatixes #Chronic back pain * CT found compression fractures of all lumbar vertebrae. * Control with lidocaine patch and tylenol PRN #Paroxysmal Afib * Cont amiodarone * DC anticoagulation given MDS and no documented A. fib #CKD stable * Currently on baseline range * We will avoid all nephrotoxic especially NSAID given the chronic back pain * We'll repeat BEP in the morning #History of MDS with pancytopenia * Wbc's improved today, she is 2.1 * We repeat CBCs in the morning * We will continue to follow here and instruct to follow as an out patinet #multiple calcified splenic granulomas * found on CT scan, outpatitent follow up #Moderate protein calorie malnutrition: * We will follow inpatient dovetailer consult * We will add in short order diet * we will instruct the patient to follow with dovetailer as an out-patientt #Chronic stable medical problems: * glaucoma, mental health, basal cell carinoma, and hypothyroidism * Continue timolol, levothyroxine, and sertraline #DNR DNI #DVT ppx ALPS for thrombocytopenia #Heart healthy diet Problem List: 1. Back pain 2. Hypertensive urgency 3. Ileus Pain Ratin Pain Location: back Pain Goal: Remain pain free Pain Plan: See A&P Tomorrow's Labs & Rationales: CBC and BEP
[2018-04-22] MEDS ORDERED: CARVEDILOL6.25 M1 PO (08:18)
[2018-04-22] MEDS ORDERED: HYDRALAZINE HCL50 M1 PO (08:18)
--- NOTE | 2018-04-22 08:21 | Patient Discharge Instructions ---
Discharge Instructions General Discharge Information You were seen/treated for: Hypertensive urgency Ileus Special Instructions: Please follow with PCP within 1-2 weeks. Please follow up with Dr. Napier (range conservationist) in 1 week. Please take your medications as prescribed. Diet Continue normal diet: Yes Activity Full Activity/No Limits: Yes Activity Self Limited: Yes Acute Coronary Syndrome Inclusion Criteria At DC or during hospital stay patient has or had the following: ACS DIAGNOSIS No Discharge Core Measures Meds if any: Prescribed or Continued at Discharge Meds if any: NOT Prescribed or Continued at Discharge Congestive Heart Failure Inclusion Criteria At DC or during hospital stay patient has or had the following: CHF DIAGNOSIS No Discharge Core Measures Meds if any: Prescribed or Continued at Discharge Meds if any: NOT Prescribed or Continued at Discharge Cerebrovascular accident Inclusion Criteria At DC or during hospital stay patient has or had the following: CVA/TIA Diagnosis No Discharge Core Measures Meds if any: Prescribed or Continued at Discharge Meds if any: NOT Prescribed or Continued at Discharge Venous thromboembolism Inclusion Criteria VTE Diagnosis No VTE Type NONE VTE Confirmed by (Test) NONE Discharge Core Measures - Per Current guidelines, there needs to be overlap - treatment for the first 5 days of Warfarin therapy. - If discharged on Warfarin prior to 5 days of - overlap therapy, the patient will need to be - assessed for post discharge needs including - *Post discharge parental anticoagulation - *Warfarin and/or parental anticoagulation education - *Follow up date to check INR post discharge At least 5 days overlap therapy as Inpatient No Meds if any: Prescribed or Continued at Discharge Note: Overlap Therapy is Warfarin and Anticoagulant Meds if any: NOT Prescribed or Continued at Discharge
--- NOTE | 2018-04-22 19:19 | PN- Cardiology ---
Subjective Subjective: No complaints and no further symptoms since today's earlier "rapid response" during which she was on telemetry without any evidence of significant dysrhythmia and/or heart block. Objective Vital Signs and I&Os Vital Signs Date Time Temp Pulse Resp B/P B/P Pulse O2 O2 Flow FiO2 Mean Ox Delivery Rate 04/22 1533 Room Air 2.0L 04/22 1525 Room Air 2.0L 04/22 1401 70 118/52 04/22 0953 60 148/60 04/22 0953 60 148/60 04/22 0953 60 148/60 04/22 0953 60 148/60 04/22 0640 97.9 60 18 148/60 96 Room Air 04/21 2208 98.5 61 18 130/54 95 04/21 215 88 138/54 04/21 2150 88 138/54 Intake & Output 04/22 1600 04/22 0800 04/22 0000 04/21 1600 04/21 0800 04/21 0000 Intake Total 360 300 160 480 200 Output Total 100 250 300 Balance 360 300 60 480 -250 -100 Intake, Oral 360 300 160 480 200 Number 2 Bowel Movements Output, Urine 100 250 300 Patient 93 lb 2 oz 97 lb 1 oz Weight Weight Bed scale Measurement Method Physical Exam: Well-developed well-nourished female in no acute distress. Vital signs: See above. Neck: no JVD, no carotid bruit Lungs: Clear to auscultation bilaterally. Heart: RRR w/o murmur Heart: S1, S2 with no murmur, gallop, or rub. Abdomen: soft, nontender, positive bowel sounds Extremities: no edema Current Medications: Current Medications Sig/Maureen Start time Last Medication Dose Route Stop Time Status Admin Acetaminophen 1,000 MG Q6P PRN 04/18 600 AC N/A 1 UNIT IV Amiodarone HCl 100 MG DAILY 04/18 0900 AC 04/22 PO 0953 Atorvastatin Calcium 10 MG 1700 04/18 1700 AC 04/22 PO 1722 Bisacodyl 10 MG .STK-MED ONE 04/22 1609 DC RI 04/22 1610 Bisacodyl 10 MG Q12P PRN 04/22 0915 AC 04/22 RI 0955 Carvedilol 6.25 MG BID 04/19 09 DC 04/22 PO 0953 Dorzolamide HCl 1 GTT BID 04/18 0205 AC 04/22 OPH 0955 Hydralazine HCl 50 MG TID 04/18 09 AC 04/22 PO 0953 Levothyroxine Sodium 0.05 MG DAILY AC 04/18 0700 AC 04/22 PO 0644 Lidocaine 1 PAT 1900 04/20 1900 AC 04/21 TOP 2148 Lisinopril 40 MG DAILY 04/18 09 AC 04/22 PO 0953 Ondansetron HCl 4 MG ONCE ONE 04/22 1130 DC 04/22 IV 04/22 1131 1131 Senna/Docusate Sodium 1 TAB .STK-MED ONE 04/22 1608 DC PO 04/22 1609 Senna/Docusate Sodium 1 TAB BID 04/22 1000 AC 04/22 PO 0953 Sertraline HCl 50 MG DAILY 04/18 09 AC 04/22 PO 0953 Timolol Maleate 1 GTT BID 04/18 0900 AC 04/22 OPH 0955 Results Last 48 Hrs of Labs/Mics: Laboratory Tests 04/21/18 0627: Anion Gap 9, Estimated GFR 30 L, BUN/Creatinine Ratio 15.0, CBC w Diff NO MAN DIFF REQ, RBC 2.88 L, MCV 104.7 H, MCH 35.2 H, MCHC 33.6, RDW 13.6, MPV 10.1, Gran % 74.8, Lymphocytes % 21.3, Monocytes % 2.9, Eosinophils % 0.4, Basophils % 0.6, Absolute Granulocytes 1.6, Absolute Lymphocytes 0.4 L, Absolute Monocytes 0.1, Absolute Eosinophils 0, Absolute Basophils 0 Recent Imaging Studies: ECG 04/22/2018: Sinus rhythm, first-degree AV block, LVH with repolarization abnormalities versus ischemia, 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 No significant change when compared to previous tracing from 04/20/2018. Assessment/Plan Assessment/Plan [id number] w/ hx HTN, CKD, HLD, hypothyroidism, MDS, & medical compliance issues who presented to the ED w/ diarrhea & who was discovered to have poorly controlled hypertension and who has also had two "rapid responses" since admission w/ the first occurring while she was undergoing physical therapy and was associated with nausea/vomiting the second while she was straining to have a bowel movement and was associated with nausea. Additionally, she has had 2 similar episodes on an outpatient basis over the past several months. Typically, she starts to feel unwell, followed by diaphoresis and a feeling of things "closing in", which is then followed by nausea and sometimes vomiting, and finally by her becoming presyncopal. Fortunately, she was on telemetry 1-2 episodes occurred here with neither revealing evidence of significant dysrhythmias and/or heart block. Suspect that her episodes are c/w reflex syncope as results of an alteration in autonomic activity and are most consistent with the vasodepressor type where there is inhibition of decreased sympathetic activity which can lead to symptomatic hypotension in the absence of bradycardia. Cardia. Her blood pressure has improved on her present regimen and would maintain this for now. Discussed some techniques to help avoid future episodes with the patient and family members. Will follow up on an outpatient basis. Continue DVT prophylaxis. Continue telemetry? Yes
[2018-04-22 22:06] VITALS: BP 170/78
--- NOTE | 2018-04-23 06:06 | PN- Housestaff ---
See Addendum Subjective Follow-up For: Hypertensive urgency Back pain Diarrhea alternate with constipation Subjective: Afebrile, hemodynamically stable with intermittent high blood pressure readings. Heart rate in the 60s. No overnight events were reported. The patient is laying in bed looks relaxed and comfortable and denies any current active complaint Review of Systems Constitutional: Reports: no symptoms, see HPI. Objective Last 24 Hrs of Vital Signs/I&O Vital Signs Date Time Temp Pulse Resp B/P B/P Pulse O2 O2 Flow FiO2 Mean Ox Delivery Rate 04/22 2206 98.9 60 20 170/78 95 /01 2032 126/60 04/22 1533 Room Air 2.0L 04/22 1525 Room Air 2.0L 04/22 1401 70 118/52 04/22 0953 60 148/60 04/22 0953 60 148/60 04/22 0953 60 148/60 04/22 0953 60 148/60 04/22 0640 97.9 60 18 148/60 96 Room Air Intake & Output 04/23 0800 04/23 0000 04/22 1600 Intake Total 80 360 Output Total Balance 80 360 Intake, Oral 80 360 Number 2 Bowel Movements Patient 41.844 kg Weight Physical Exam General Appearance: Alert, Oriented X3, Cooperative, No Acute Distress Skin: No Rashes HEENT: Atraumatic, PERRLA, EOMI, Mucous Membr. moist/pink Neck: No JVD Cardiovascular: Regular Rate, Normal S1, Normal S2, No Murmurs Lungs: Clear to Auscultation, Normal Air Movement Abdomen: Soft, No Tenderness Neurological: Normal Speech Extremities: No Clubbing, No Cyanosis, No Edema Current Medications: Current Medications Sig/Maureen Start time Last Medication Dose Route Stop Time Status Admin Acetaminophen 1,000 MG Q6P PRN 04/18 600 AC N/A 1 UNIT IV Amiodarone HCl 100 MG DAILY 04/18 09 AC 04/22 PO 0953 Atorvastatin Calcium 10 MG 1700 04/18 1700 AC 04/22 PO 1722 Bisacodyl 10 MG .STK-MED ONE 04/22 1609 DC HI 04/22 1610 Bisacodyl 10 MG Q12P PRN 04/22 0915 AC 04/22 [place] 0955 Carvedilol 6.25 MG BID 04/19 09 DC 04/22 PO 0953 Dorzolamide HCl 1 GTT BID 04/18 0205 AC 04/22 OPH 3 Hydralazine HCl 50 MG TID 04/18 0900 AC 04/22 PO 0953 Levothyroxine Sodium 0.05 MG DAILY AC 04/18 0700 AC 04/22 PO 0644 Lidocaine 1 PAT 1900 04/20 1900 AC 04/22 TOP 2034 Lisinopril 40 MG DAILY 04/18 0900 AC 04/22 PO 0953 Ondansetron HCl 4 MG ONCE ONE 04/22 1130 DC 04/22 IV 04/22 1131 1131 Senna/Docusate Sodium 1 TAB .STK-MED ONE 04/22 1608 DC PO 04/22 1609 Senna/Docusate Sodium 1 TAB BID 04/22 1000 AC 04/22 PO 203 Sertraline HCl 50 MG DAILY 04/18 0900 AC 04/22 PO 0953 Timolol Maleate 1 GTT BID 04/18 0900 AC 04/22 OPH 2034 Assessment/Plan Assessment: 87 yo F with h/o HTN, hypothyroidism, CKD stage 3, compression fracture with chronic back pain, MDS, is brought in for evaluation of diarrhea/constipation and back pain without evidence of recent use of antibiotic found to have ileus on imaging and found to be in hypertensive urgency. Plan #Recurrent syncopal/presyncopal in pt with hypertensive urgency Supervisor Weaving suspected that her syncopal episode are most likely secondary to alteration in autonomic activity and are most consistent with the vasodepressor type. * Continue lisinopril, hydralazine * We will discuss with meeting planner the best antihypertensive medication for discharge * The family agrees that patient get discharged to short-term rehab * May benefit from outpatient tilt table test #CT findings of ileus vs partial SBO * She tolerated solid diet. * This finding possibly secondary to taking laxatixes #Chronic back pain * CT found compression fractures of all lumbar vertebrae. * Control with lidocaine patch and tylenol PRN #Paroxysmal Afib * Cont amiodarone * DC anticoagulation given MDS and no documented A. fib #CKD stable * Currently on baseline range * We will avoid all nephrotoxic especially NSAID given the chronic back pain #History of MDS with pancytopenia * Wbc's stable * We will continue to follow here and instruct to follow as an out patinet #multiple calcified splenic granulomas * found on CT scan, outpatitent follow up #Moderate protein calorie malnutrition: * We will follow inpatient hospital staff pharmacist consult * We will add Ensure to her diet * we will instruct the patient to follow with hospital staff pharmacist as an out-patientt #Chronic stable medical problems: * glaucoma, mental health, basal cell carinoma, and hypothyroidism * Continue timolol, levothyroxine, and sertraline #DNR DNI #DVT ppx ALPS for thrombocytopenia #Heart healthy diet Problem List: 1. Loose stools 2. Hypertensive urgency 3. Ileus Pain Ratin Pain Location: lower back Pain Goal: Remain pain free Pain Plan: See A&P Tomorrow's Labs & Rationales: See A&P
[2018-04-23 06:34] VITALS: BP 114/64
[2018-04-23 09:15] VITALS: BP 118/62
--- NOTE | 2018-04-23 09:25 | PN- Cardiology ---
Subjective Subjective: The patient says she is feeling somewhat better today though profoundly fatigued. No further episodes of syncope/presyncope. Objective Vital Signs and I&Os Vital Signs Date Time Temp Pulse Resp B/P B/P Pulse O2 O2 Flow FiO2 Mean Ox Delivery Rate 04/23 0916 67 118/62 / 0916 67 118/62 04/23 0916 67 118/62 04/23 0915 67 118/62 04/23 0634 97.6 54 20 114/64 94 Room Air 04/22 2206 98.9 60 20 170/78 95 04/22 2032 126/60 04/22 1533 Room Air 2.0L 04/22 1525 Room Air 2.0L 04/22 1401 70 118/52 04/22 0953 60 148/60 04/22 0953 60 148/60 04/22 0953 60 148/60 04/22 0953 60 148/60 Intake & Output 04/23 1600 04/23 0800 04/23 0000 04/22 1600 04/22 0800 04/22 0000 Intake Total 120 80 360 300 160 Output Total 500 100 Balance -380 80 360 300 60 Intake, Oral 120 80 360 300 160 Number 2 Bowel Movements Output, Urine 500 100 Patient 92 lb 4 oz 93 lb 2 oz Weight Physical Exam: General Appearance: well developed, thin elderly female, alert, awake, oriented Head: normal HEENT: Normal Neck: supple, JVP normal, carotid upstrokes normal bilaterally, no masses or thyromegaly Respiratory: chest non-tender, clear to auscultation and percussion bilaterally Cardiovascular: regular rate/rhythm, normal S1, S2, 1/6 systolic murmur Abdomen: normal bowel sounds, soft, non-tender Extremities: normal inspection, no edema Vascular: Pulses are 2+ and equal bilaterally Neurologic: Grossly normal/nonfocal Current Medications: Current Medications Sig/Maureen Start time Last Medication Dose Route Stop Time Status Admin Acetaminophen 1,000 MG Q6P PRN 04/18 600 AC N/A 1 UNIT IV Amiodarone HCl 100 MG DAILY 04/18 09 AC 04/23 PO 0916 Atorvastatin Calcium 10 MG 1700 04/18 1700 AC 04/22 PO 1722 Bisacodyl 10 MG .STK-MED ONE 04/22 1609 DC [place] 04/22 1610 Bisacodyl 10 MG Q12P PRN 04/22 0915 AC 04/22 [place] 0955 Carvedilol 6.25 MG BID 04/19 0900 DC 04/22 PO 0953 Dorzolamide HCl 1 GTT BID 04/18 0205 AC 04/23 OPH 0916 Hydralazine HCl 50 MG TID 04/18 0900 AC 04/23 PO 0916 Levothyroxine Sodium 0.05 MG DAILY AC 04/18 0700 AC 04/23 PO 0659 Lidocaine 1 PAT 1900 04/20 1900 AC 04/22 TOP 2035 Lisinopril 40 MG DAILY 04/18 0900 AC 04/23 PO 0916 Ondansetron HCl 4 MG ONCE ONE 04/22 1130 DC 04/22 IV 04/22 1131 1131 Senna/Docusate Sodium 1 TAB .STK-MED ONE 04/22 1608 DC PO 04/22 1609 Senna/Docusate Sodium 1 TAB BID 04/22 1000 AC 04/23 PO 0916 Sertraline HCl 50 MG DAILY 04/18 09 AC 04/23 PO 0916 Timolol Maleate 1 GTT BID 04/18 09 AC 04/23 OPH 0916 Assessment/Plan Assessment/Plan Assessment: 1. Presyncope/syncope 2. Hypertensive urgency 3. Hyper lipidemia 4. CKD 5. Hypothyroidism 6. MDS 7. History of paroxysmal atrial fibrillation Recommendations: -No further significant symptoms noted since yesterday -Continue current medications for now with close monitoring of blood pressure -Intermittent check of orthostatic heart rate and blood pressure -Out of bed as tolerated -Pending short-term rehab. -Follow-up with Dr. Napier post discharge Continue telemetry? Yes
[2018-04-23 13:48] VITALS: BP 108/54
[2018-04-23 14:43] VITALS: BP 104/44
[2018-04-24 06:28] VITALS: BP 152/68
--- NOTE | 2018-04-24 08:29 | PN- Housestaff ---
Avel CHA,Basilio 04/24/18 0829: Subjective Follow-up For: Hypertensive urgency, syncope Complaints: no complaints Tele-Events Since Last Visit: Sinus bradycardia, first-degree AV block with NH interval 0.24, heart rate 57- 59. Subjective: I followed up and examined the patient today. She is resting comfortably in bed , not in distress, and offers no complaints. She had question about her discharge disposition which was discussed with her daughter as well. She is planned to be discharged to [facility] today. Review of Systems Constitutional: Reports: no symptoms. Objective Last 24 Hrs of Vital Signs/I&O Vital Signs Date Time Temp Pulse Resp B/P B/P Pulse O2 O2 Flow FiO2 Mean Ox Delivery Rate 04/24 628 98.5 58 18 152/68 96 Room Air 04/23 2213 99.2 60 16 96 Room Air 04/23 2022 68 120/56 04/23 1443 97.3 67 18 104/44 95 / 1351 65 108/54 04/23 1348 65 108/54 / 0916 67 118/62 04/23 0916 67 118/62 02 0916 67 118/62 /02 0915 67 118/62 Intake & Output 04/24 1600 04/24 0800 04/24 0000 Intake Total 120 490 Output Total 300 350 Balance -180 140 Intake, IV 10 Intake, Oral 120 480 Output, Urine 300 350 Patient 41.986 kg Weight Physical Exam General Appearance: Alert, Oriented X3, Cooperative, No Acute Distress, THIN Other Physical Findings: Skin: No Rashes HEENT: Atraumatic, PERRLA, EOMI, Mucous Membr. moist/pink Neck: No JVD Cardiovascular: Regular Rate, Normal S1, Normal S2, No Murmurs Lungs: Clear to Auscultation, Normal Air Movement Abdomen: Soft, No Tenderness Neurological: Normal Speech Extremities: No Clubbing, No Cyanosis, No Edema Current Medications: Current Medications Sig/Maureen Start time Last Medication Dose Route Stop Time Status Admin Acetaminophen 1,000 MG Q6P PRN 04/18 600 AC N/A 1 UNIT IV Amiodarone HCl 100 MG DAILY 04/18 0900 AC 04/23 PO 0916 Atorvastatin Calcium 10 MG 1700 04/18 1700 AC 04/23 PO 1751 Bisacodyl 10 MG Q12P PRN 04/22 0915 AC 04/22 [place] 0955 Dorzolamide HCl 1 GTT BID 04/18 0205 AC 04/23 OPH 2022 Hydralazine HCl 50 MG TID 04/18 0900 AC 04/23 PO 2021 Levothyroxine Sodium 0.05 MG DAILY AC 04/18 0700 AC 04/24 PO 0517 Lidocaine 1 PAT 1900 04/20 1900 AC 04/23 TOP 1901 Lisinopril 40 MG DAILY 04/18 0900 AC 04/23 PO 0916 Senna/Docusate Sodium 1 TAB BID 04/22 1000 AC 04/23 PO 2020 Sertraline HCl 50 MG DAILY 04/18 0900 AC 04/23 PO 0916 Timolol Maleate 1 GTT BID 04/18 0900 AC 04/23 OPH 2022 Assessment/Plan Assessment: 87 yo F with h/o HTN, hypothyroidism, CKD stage 3, compression fracture with chronic back pain, MDS, is brought in for evaluation of diarrhea/constipation and back pain without evidence of recent use of antibiotic found to have ileus on imaging and found to be in hypertensive urgency. She is currently in tele floor for the management of current issues: #Recurrent syncopal/presyncopal episodes in pt with hypertensive urgency Manager Drug Safety suspected that her syncopal episode are most likely secondary to alteration in autonomic activity and are most consistent with the vasodepressor type. * Continue with lisinopril, hydralazine, discussed the meds with computer systems manager for discharge * The family agrees that patient get discharged to short-term rehab * May benefit from outpatient tilt table test * Will have to follow up with Dr Napier upon discharge. * Discharge plan discussed with patient's daughter as well who agrees to STR today. #CT findings of ileus vs partial SBO, soft abdomen now * She tolerated solid diet. * This finding possibly secondary to taking laxatixes #Chronic back pain * CT found compression fractures of all lumbar vertebrae. * Control with lidocaine patch and tylenol PRN #Paroxysmal Afib * Cont amiodarone * DC anticoagulation given MDS and no documented A. fib #CKD stable * Currently on baseline range * We will avoid all nephrotoxic especially NSAID given the chronic back pain #History of MDS with pancytopenia * WBC stable * We will continue to follow here and instruct to follow as an out patinet #multiple calcified splenic granulomas * found on CT scan, outpatitent follow up #Moderate protein calorie malnutrition, BMI 14.5 mg/m2 * We will follow inpatient contracting officer consult * We will add Ensure to her diet * we will instruct the patient to follow with contracting officer as an out-patientt #Chronic stable medical problems: * glaucoma, mental health, basal cell carinoma, and hypothyroidism * Continue timolol, levothyroxine, and sertraline #DNR DNI #DVT ppx ALPS for thrombocytopenia #Heart healthy diet Problem List: 1. Syncope 2. Hypertensive urgency 3. Autonomic dysfunction Pain Ratin Pain Location: - Pain Goal: Pain 4 or less Pain Plan: prn Tomorrow's Labs & Rationales: - Chasity Beverly MD 04/24/18 1005: Attending MD Review Statement Attending Statement Attending MD Statement: examined this patient, discuss w/resident/PA/S[employer] BUSINESS OBJECTS CONSULTANT, agreed w/resident/PA/S[employer] BUSINESS OBJECTS CONSULTANT, reviewed EMR data (avail), discussed with nursing, reviewed images Attending Assessment/Plan: Patient is doing well. No episodes of syncope/presyncope. And her pressure is stable at 128/58. At this point she is stable to leave to [facility]. She has the vasodepressive syncope and hence medication changes should be to minimum. She'll leave on her hydralazine and lisinopril with close outpatient follow-up with Dr. Napier.
[2018-04-24] MEDS ORDERED: SENNA PLUS TAB1 EACH PO (10:13)
[2018-04-24] MEDS ORDERED: BISAC-EVAC10 M1 PR (10:13)
[2018-04-24] MEDS ORDERED: HYDRALAZINE HCL50 M1 PO (10:14)
[2018-04-24 11:53] VITALS: BP 128/58
[2018-04-24 13:23] VITALS: BP 120/60
[2018-04-24 13:32] VITALS: BP 120/60
--- NOTE | 2018-04-24 14:19 | PN- Cardiology ---
Subjective Subjective: Clinically stable and doing better today. Awaiting transfer to short-term rehab Objective Vital Signs and I&Os Vital Signs Date Time Temp Pulse Resp B/P B/P Pulse O2 O2 Flow FiO2 Mean Ox Delivery Rate 04/24 1332 58 120/60 04/24 1323 120/60 04/24 1153 98.5 58 18 128/58 04/24 0909 58 128/58 04/24 0909 58 128/58 04/24 0908 152/68 04/24 0800 Room Air 04/24 0628 98.5 58 18 152/68 96 Room Air 04/23 2213 99.2 60 16 96 Room Air 04/23 2022 68 120/56 04/23 1443 97.3 67 18 104/44 95 Intake & Output 04/24 1600 04/24 0804/24 0000 04/23 1600 04/23 0800 04/23 0000 Intake Total 120 490 360 120 80 Output Total 300 350 300 500 Balance -180 140 60 -380 80 Intake, IV 10 Intake, Oral 120 480 360 120 80 Output, Urine 300 350 300 500 Patient 92 lb 9 oz 92 lb 4 oz Weight Physical Exam: General Appearance: well developed, thin elderly female, alert, awake, oriented Head: normal HEENT: Normal Neck: supple, JVP normal, carotid upstrokes normal bilaterally, no masses or thyromegaly Respiratory: chest non-tender, clear to auscultation and percussion bilaterally Cardiovascular: regular rate/rhythm, normal S1, S2, 1/6 systolic murmur Abdomen: normal bowel sounds, soft, non-tender Extremities: normal inspection, no edema Vascular: Pulses are 2+ and equal bilaterally Neurologic: Grossly normal/nonfocal Current Medications: Current Medications Sig/Maureen Start time Last Medication Dose Route Stop Time Status Admin Acetaminophen 1,000 MG Q6P PRN 04/18 600 AC N/A 1 UNIT IV Amiodarone HCl 100 MG DAILY 04/18 09 AC 04/24 PO 0908 Atorvastatin Calcium 10 MG 1700 04/18 1700 AC 04/23 PO 1751 Bisacodyl 10 MG Q12P PRN 04/22 0915 AC 04/22 [place] 0955 Dorzolamide HCl 1 GTT BID 04/18 0205 AC 04/24 OPH 0912 Hydralazine HCl 50 MG TID 04/18 0900 AC 04/24 PO 1332 Levothyroxine Sodium 0.05 MG DAILY AC 04/18 0700 AC 04/24 PO 0517 Lidocaine 1 PAT 1900 04/20 1900 AC 04/23 TOP 1901 Lisinopril 40 MG DAILY 04/18 09 AC 04/24 PO 0909 Senna/Docusate Sodium 1 TAB BID 04/22 1000 AC 04/24 PO 0909 Sertraline HCl 50 MG DAILY 04/18 09 AC 04/24 PO 0909 Timolol Maleate 1 GTT BID 04/18 09 AC 04/24 OPH 0911 Assessment/Plan Assessment/Plan Assessment: 1. Presyncope/syncope 2. Hypertensive urgency 3. Hyper lipidemia 4. CKD 5. Hypothyroidism 6. MDS 7. History of paroxysmal atrial fibrillation Recommendations: -No further significant symptoms noted since yesterday -Continue current medications for now with close monitoring of blood pressure -Intermittent check of orthostatic heart rate and blood pressure -Out of bed as tolerated -Pending transfer to short-term rehab today -Follow-up with Dr. Napier post discharge Continue telemetry? No
== END 2018-04-24 14:28 | DRG 305 ==
LOC: ERH 14:32 → 1NO 04-18 00:52 → ERHI 04-18 00:52 → ENRESERV 04-18 04:55 → CRI 04-18 05:30 → ENTRNSPT 04-19 08:03 → EDTRNSPTSTS 04-19 09:17 → EDTRNSPT 04-19 09:17 → 1NO 04-19 09:37 → CMPTRNSPT 04-19 09:46 → 1NO 04-19 15:32 → ENPENDDIS 04-24 10:18 → 1NO 04-24 14:28
PROVIDERS: Physician Assistant Medical; Preventive Medicine Public Health & General Preventive Medicine; Student in an Organized Health Care Education/Training Program
DX: I16.0 Hypertensive urgency (principal); D61.818 Other pancytopenia; E46 Unspecified protein-calorie malnutrition; Z68.1 Body mass index [BMI] 19.9 or less, adult; K56.7 Ileus, unspecified; E44.0 Moderate protein-calorie malnutrition; I12.9 Hypertensive chronic kidney disease with stage 1 through stage 4 chronic kidney disease, or unspecified chronic kidney disease; N18.3 Chronic kidney disease, stage 3 (moderate); D46.9 Myelodysplastic syndrome, unspecified; F41.9 Anxiety disorder, unspecified; E78.5 Hyperlipidemia, unspecified; E03.9 Hypothyroidism, unspecified; Z66 Do not resuscitate; Z90.710 Acquired absence of both cervix and uterus; I48.0 Paroxysmal atrial fibrillation; M54.9 Dorsalgia, unspecified; R55 Syncope and collapse; L92.8 Other granulomatous disorders of the skin and subcutaneous tissue
CPT/HCPCS: 1NSP; CCU; 36415; 36592; 74018; 74177; 81003; 82436; 87015; 87045; 87328; 87329; 87899; 87899-59; 93005; 93010; 93306; 96374; 96375; 97110-GO; 97116-GO; 97161-GP; 97530-GO; J0131; J0360; J1644; J2405